=== PATIENT | female | born 1935 | race Caucasian/White ===

== ENCOUNTER → 2020-07-03 | Outpatient (CLI) | payer MEDICARE ==
[2020-07-03 15:46] LABS: HCT 44.4 % (34.0-46.0); HGB 14.3 gm/dL (11.4-16.0); MCH 31.2 pg (25.0-35.0); MCHC 32.3 g/dL (31.0-37.0); MCV 96.5 fL (80.0-100.0); Mean Platelet Volume 7.4; Platelet Count 333 k/uL (150-450); WBC 10.3 k/uL (3.8-10.6)
[2020-07-03 15:53] LABS: African American GFR (CKD) >90 (>60 ml/min/1.73 sqM); Blood Urea Nitrogen 26 mg/dL (7-17); Non-African American GFR(CKD) 79 (>60 ml/min/1.73 sqM); Potassium 3.4 mmol/L (3.5-5.1)
[2020-07-03 16:09] LABS: T4, Free (Free Thyroxine) 1.63 ng/dL (0.78-2.19)
== END | disposition home or self-care (01) ==
LOC: LABPAT 14:56
PROVIDERS: ATTEND Internal Medicine Interventional Cardiology
DX: Z01.818 Encounter for other preprocedural examination (principal); I48.91 Unspecified atrial fibrillation
CPT/HCPCS: 36415; 82306; 82565; 83735; 84132; 84439; 84443; 84520; 85027

== ENCOUNTER → 2020-10-30 | Outpatient (CLI) | payer MEDICARE ==
[2020-10-30 11:22] LABS: African American GFR (CKD) >90 (>60 ml/min/1.73 sqM); Anion Gap 2 mmol/L; Blood Urea Nitrogen 18 mg/dL (7-17); Carbon Dioxide 36 mmol/L (22-30); Chloride 100 mmol/L (98-107); Non-African American GFR(CKD) 85 (>60 ml/min/1.73 sqM); Potassium 3.5 mmol/L (3.5-5.1); Sodium 138 mmol/L (137-145)
[2020-10-30 18:16] LABS: HCT 38.4 % (34.0-46.0); HGB 12.2 gm/dL (11.4-16.0); Hypochromasia Slight; MCH 30.7 pg (25.0-35.0); MCHC 31.9 g/dL (31.0-37.0); MCV 96.2 fL (80.0-100.0); Mean Platelet Volume 8.3; Platelet Count 269 k/uL (150-450); RBC 3.99 m/uL (3.80-5.40); RDW 13.3 % (11.5-15.5); WBC 6.8 k/uL (3.8-10.6)
== END | disposition home or self-care (01) ==
LOC: LABWHC1 10:27
PROVIDERS: ATTEND Internal Medicine Interventional Cardiology
DX: Z01.818 Encounter for other preprocedural examination (principal); R07.9 Chest pain, unspecified
CPT/HCPCS: 36415; 80051; 82565; 84520; 85027

== ENCOUNTER → 2020-11-13 | Outpatient (CLI) | payer MEDICARE | END | disposition home or self-care (01) | LOC: LABWHC1 14:48 | PROVIDERS: ATTEND Family Medicine | DX: Z20.828 Contact with and (suspected) exposure to other viral communicable diseases (principal) | CPT/HCPCS: U0003; C9803 ==

== ENCOUNTER → 2020-12-31 | Outpatient (CLI) | payer MEDICARE ==
--- NOTE | 2020-12-31 11:10 | CT ---
EXAMINATION TYPE: CT chest wo con DATE OF EXAM: 12/31/2020 COMPARISON: None HISTORY: Pulmonary nodule CT DLP: 212.6 mGycm. Automated Exposure Control for Dose Reduction was Utilized. TECHNIQUE: CT scan of the thorax is performed without IV contrast. FINDINGS: LUNGS: The lungs are remarkable for interstitial changes, there is apical pleural thickening present, interlobular septal thickening is present, there are bandlike areas of increased attenuation, areas of pleural thickening. Wedge-shaped area of increased attenuation is present in the right upper lobe which extends peripherally measuring approximately 2 cm x 1.6 cm which is likely postinflammatory. No pleural or pericardial effusion. There is no pleural effusion or pneumothorax seen. The tracheobron chial tree is patent. MEDIASTINUM: Lack of IV contrast is noted to limit evaluation for mediastinal and especially hilar ad enopathy. Retrocaval pretracheal nodes are mildly enlarged, No cardiomegaly or pericardial effusion i s seen. Pulmonary arteries enlarged 3 cm. There are coronary artery calcifications present. OTHER: Ascending aorta is borderline aneurysmal at 4 cm, proximal descending aorta 2.8 cm. Diverticul ar changes associated with the colon. IMPRESSION: Pulmonary fibrosis suspected. There is a mediastinal adenopathy. Probable post inflammato ry changes as described.
== END | disposition home or self-care (01) ==
LOC: CPPFTMAIN 07:31
PROVIDERS: ATTEND Internal Medicine Pulmonary Disease
DX: J44.9 Chronic obstructive pulmonary disease, unspecified (principal); R94.2 Abnormal results of pulmonary function studies; R59.0 Localized enlarged lymph nodes
CPT/HCPCS: 71250; 94060; 94726; 94729

== ENCOUNTER 2021-02-19 16:23 | Observation (INO) | payer MEDICARE ==
[2021-02-19] MEDS ORDERED: ASPIRIN 81 MG PO STA (16:59)
[2021-02-19] MEDS ORDERED: NITROGLYCERIN OINT 1 INCH/GM PACKET TOPICAL STA (16:59)
[2021-02-19] MEDS ORDERED: SODIUM CHLORIDE 0.9% 500 ML 500 ML IV STA (16:59)
--- NOTE | 2021-02-19 17:05 | ED ---
General Adult HPI - General Chief complaint: Chest Pain Stated complaint: chest pain Time Seen by Provider: 02/19/21 16:25 Source: patient, EMS, RN notes reviewed, old records reviewed Mode of arrival: EMS Limitations: no limitations - History of Present Illness Initial comments: This is an 85-year-old female has past medical history significant for smoking in the past has COPD, patient has high blood pressure and high cholesterol. Patient comes in today because 1:30 in the morning she started having chest pain that radiated down her left arm and she became very short of breath. Patient states the pain continues now but is not quite as bad. Patient denies any diaphoretic episodes. Patient denies abdominal pain patient denies nausea vomiting or diarrhea. Patient denies any recent fever chills or cough. Patient denies headache patient denies lightheadedness. Patient denies any numbness weakness. Patient denies any extremity swelling or calf tenderness. - Related Data Home Medications Medication Instructions Recorded Confirmed Calcium Carbonate/Vitamin D3 1 tab PO DAILY 02/19/21 02/19/21 [Calcium 600 mg-Vit D3 5 mcg (200 unit)] Cyclobenzaprine [Flexeril] 10 mg PO HS 02/19/21 02/19/21 Flecainide Acetate 50 mg PO Q12HR 02/19/21 02/19/21 Ibuprofen [Motrin] 800 mg PO DAILY PRN 02/19/21 02/19/21 Levothyroxine Sodium [Synthroid] 200 mcg PO DAILY 02/19/21 02/19/21 Lisinopril-Hctz 20-25 mg 1 tab PO DAILY 02/19/21 02/19/21 [Zestoretic 20-25] Meclizine HCl 25 mg PO DAILY 02/19/21 02/19/21 Metoprolol Tartrate [Lopressor] 25 mg PO HS 02/19/21 02/19/21 Metoprolol Tartrate [Lopressor] 50 mg PO DAILY 02/19/21 02/19/21 Nitrofurantoin Monohyd/M-Cryst 100 mg PO MOWEFR 02/19/21 02/19/21 [Macrobid] Pravastatin Sodium [Pravachol] 40 mg PO DAILY 02/19/21 02/19/21 Rivaroxaban [Xarelto] 20 mg PO W/SUPPER 02/19/21 02/19/21 amLODIPine [Norvasc] 10 mg PO DAILY 02/19/21 02/19/21 Allergies Allergy/AdvReac Type Severity Reaction Status Date / Time No Known Allergies Allergy Verified 02/19/21 20:26 Review of Systems ROS Statement: Those systems with pertinent positive or pertinent negative responses have been documented in the HPI. ROS Other: All systems not noted in ROS Statement are negative. Past Medical History Past Medical History: Atrial Fibrillation, Cancer, COPD, Hypertension, Pneumonia History of Any Multi-Drug Resistant Organisms: None Reported Past Surgical History: Hysterectomy Additional Past Surgical History / Comment(s): Bunion surg Past Psychological History: No Psychological Hx Reported Smoking Status: Former smoker Past Alcohol Use History: Rare Past Drug Use History: None Reported General Exam Limitations: no limitations Course Vital Signs 02/19/21 02/19/21 02/19/21 16:23 17:25 18:37 Temperature 98.2 F Pulse Rate 72 68 Respiratory 20 18 20 Rate Blood Pressure 119/59 125/79 O2 Sat by Pulse 87 L 95 Oximetry 02/19/21 02/19/21 19:10 20:30 Temperature 98.0 F Pulse Rate 75 73 Respiratory 18 18 Rate Blood Pressure 87/57 127/72 O2 Sat by Pulse 96 95 Oximetry Medical Decision Making - Medical Decision Making EKG shows normal sinus rhythm at 69 bpm FL interval 202 QRS is 98 QT interval is 536 QTC is 574. Patient's EKG shows some T-wave inversions in leads V3 through V6. There is no old EKG to compare to Chest x-ray shows no acute abnormality. Looks like there is scarring in the bases no obvious CHF. Patient has no symptoms of pneumonia. I spoke with Dr. Lee he agreed to admit the patient admitted the patient wrote admitting orders - Lab Data Result diagrams: 02/19/21 17:21 02/19/21 17:21 Lab Results 02/19/21 02/19/21 02/19/21 Range/Units 17:21 17:21 17:21 WBC 9.3 (3.8-10.6) k/uL RBC 3.75 L (3.80-5.40) m/uL Hgb 9.8 L (11.4-16.0) gm/dL Hct 31.5 L (34.0-46.0) % MCV 83.9 (80.0-100.0) fL MCH 26.0 (25.0-35.0) pg MCHC 31.0 (31.0-37.0) g/dL RDW 15.2 (11.5-15.5) % Plt Count 317 (150-450) k/uL MPV 7.2 Neutrophils % 70 % Lymphocytes % 20 % Monocytes % 6 % Eosinophils % 1 % Basophils % 0 % Neutrophils # 6.5 (1.3-7.7) k/uL Lymphocytes # 1.9 (1.0-4.8) k/uL Monocytes # 0.5 (0-1.0) k/uL Eosinophils # 0.1 (0-0.7) k/uL Basophils # 0.0 (0-0.2) k/uL Hypochromasia Slight PT 10.9 (9.0-12.0) sec INR 1.0 (<1.2) APTT 26.4 (22.0-30.0) sec Sodium 133 L (137-145) mmol/L Potassium 3.4 L (3.5-5.1) mmol/L Chloride 95 L (98-107) mmol/L Carbon Dioxide 30 (22-30) mmol/L Anion Gap 8 mmol/L BUN 20 H (7-17) mg/dL Creatinine 0.57 (0.52-1.04) mg/dL Est GFR (CKD-EPI)AfAm >90 (>60 ml/min/1.73 sqM) Est GFR (CKD-EPI)NonAf 86 (>60 ml/min/1.73 sqM) Glucose 142 H (74-99) mg/dL Calcium 9.2 (8.4-10.2) mg/dL Magnesium 1.7 (1.6-2.3) mg/dL Total Bilirubin 0.4 (0.2-1.3) mg/dL AST 18 (14-36) U/L ALT 13 (4-34) U/L Alkaline Phosphatase 68 (38-126) U/L Troponin I (0.000-0.034) ng/mL Total Protein 6.4 (6.3-8.2) g/dL Albumin 3.6 (3.5-5.0) g/dL Coronavirus (PCR) (Not Detectd) 02/19/21 02/19/21 Range/Units 17:21 17:21 WBC (3.8-10.6) k/uL RBC (3.80-5.40) m/uL Hgb (11.4-16.0) gm/dL Hct (34.0-46.0) % MCV (80.0-100.0) fL MCH (25.0-35.0) pg MCHC (31.0-37.0) g/dL RDW (11.5-15.5) % Plt Count (150-450) k/uL MPV Neutrophils % % Lymphocytes % % Monocytes % % Eosinophils % % Basophils % % Neutrophils # (1.3-7.7) k/uL Lymphocytes # (1.0-4.8) k/uL Monocytes # (0-1.0) k/uL Eosinophils # (0-0.7) k/uL Basophils # (0-0.2) k/uL Hypochromasia PT (9.0-12.0) sec INR (<1.2) APTT (22.0-30.0) sec Sodium (137-145) mmol/L Potassium (3.5-5.1) mmol/L Chloride (98-107) mmol/L Carbon Dioxide (22-30) mmol/L Anion Gap mmol/L BUN (7-17) mg/dL Creatinine (0.52-1.04) mg/dL Est GFR (CKD-EPI)AfAm (>60 ml/min/1.73 sqM) Est GFR (CKD-EPI)NonAf (>60 ml/min/1.73 sqM) Glucose (74-99) mg/dL Calcium (8.4-10.2) mg/dL Magnesium (1.6-2.3) mg/dL Total Bilirubin (0.2-1.3) mg/dL AST (14-36) U/L ALT (4-34) U/L Alkaline Phosphatase (38-126) U/L Troponin I <0.012 (0.000-0.034) ng/mL Total Protein (6.3-8.2) g/dL Albumin (3.5-5.0) g/dL Coronavirus (PCR) Not Detected (Not Detectd) Disposition Clinical Impression: Unstable angina pectoris Disposition: ADMITTED IP TO THIS HOSP Referrals: Jon Santa MD [Primary Care Provider] - 1-2 days Time of Disposition: 20:34
[2021-02-19 17:25] LABS: Basophils % (A) 0 %; Eosinophils # (A) 0.1 k/uL (0-0.7); Eosinophils % (A) 1 %; HCT 31.5 % (34.0-46.0); HGB 9.8 gm/dL (11.4-16.0); Hypochromasia Slight; Lymphocytes # (A) 1.9 k/uL (1.0-4.8); Lymphocytes % (A) 20 %; MCV 83.9 fL (80.0-100.0); Mean Platelet Volume 7.2; Monocytes # (A) 0.5 k/uL (0-1.0); Monocytes % (A) 6 %; Neutrophils # (A) 6.5 k/uL (1.3-7.7); Neutrophils % (A) 70 %; Platelet Count 317 k/uL (150-450); RBC 3.75 m/uL (3.80-5.40); RDW 15.2 % (11.5-15.5); WBC 9.3 k/uL (3.8-10.6)
[2021-02-19 17:33] LABS: Partial Thromboplastin Time 26.4 sec (22.0-30.0); Prothrombin Time 10.9 sec (9.0-12.0)
[2021-02-19 17:34] LABS: ALT 13 U/L (4-34); AST 18 U/L (14-36); African American GFR (CKD) >90 (>60 ml/min/1.73 sqM); Albumin 3.6 g/dL (3.5-5.0); Alkaline Phosphatase 68 U/L (38-126); Anion Gap 8 mmol/L; Blood Urea Nitrogen 20 mg/dL (7-17); Calcium 9.2 mg/dL (8.4-10.2); Carbon Dioxide 30 mmol/L (22-30); Chloride 95 mmol/L (98-107); Glucose 142 mg/dL (74-99); Magnesium 1.7 mg/dL (1.6-2.3); Non-African American GFR(CKD) 86 (>60 ml/min/1.73 sqM); Potassium 3.4 mmol/L (3.5-5.1); Sodium 133 mmol/L (137-145); Total Bilirubin 0.4 mg/dL (0.2-1.3); Total Protein 6.4 g/dL (6.3-8.2)
--- NOTE | 2021-02-19 17:58 | XR ---
EXAMINATION TYPE: XR chest 2V DATE OF EXAM: 02/19/2021 COMPARISON: NONE HISTORY: Chest pain TECHNIQUE: 2 views FINDINGS: There is blunting of the costophrenic angles. There is coarse interstitial pulmonary infilt rates. There is atelectasis and infiltrate at the lung bases. Pulmonary vascularity is difficult to e valuate. There are chest leads. IMPRESSION: There is pneumonia and atelectasis at the lung bases with small pleural effusions. No obv ious heart failure. Interstitial fibrotic changes.
[2021-02-19] MEDS ORDERED: SODIUM CHLORIDE 0.9% 500 ML 500 ML IV ONE (19:14)
[2021-02-19] MEDS ORDERED: NITROGLYCERIN SL TABS 0.4 MG TAB SUBLINGUAL PRN (20:34)
[2021-02-19] MEDS: METOPROLOL TARTRATE 25 MG TAB PO SCH (21:57)
[2021-02-19] MEDS: NITROFURANTOIN MONOHYD/M-CRYST 100 MG CAP PO SCH (21:57)
[2021-02-19] MEDS: FLECAINIDE 50 MG TAB PO SCH (21:57)
[2021-02-19] MEDS: NITROGLYCERIN OINT 1 INCH/GM PACKET TOPICAL SCH (23:54)
[2021-02-20] MEDS: NITROGLYCERIN OINT 1 INCH/GM PACKET TOPICAL SCH ×2 (05:29→12:44)
[2021-02-20] MEDS ORDERED: LISINOPRIL-HCTZ 20-25 MG 1 EACH TAB PO SCH (09:00)
[2021-02-20] MEDS ORDERED: ASPIRIN 325 MG TAB PO SCH (09:00)
[2021-02-20] MEDS ORDERED: amLODIPine 10 MG TAB PO SCH (09:00)
[2021-02-20 09:54] LABS: Chol/HDL Ratio 3.55
[2021-02-20] MEDS: ASPIRIN 81 MG PO SCH (10:49)
[2021-02-20] MEDS: PRAVASTATIN SODIUM 40 MG TAB PO SCH (10:49)
[2021-02-20] MEDS: METOPROLOL TARTRATE 50 MG TAB PO SCH (10:49)
[2021-02-20] MEDS: FLECAINIDE 50 MG TAB PO SCH ×2 (10:50→20:27)
[2021-02-20] MEDS: LEVOTHYROXINE 100 MCG TAB PO SCH (10:50)
--- NOTE | 2021-02-20 11:00 | ECHOF ---
Referral Reason:chest pain MEASUREMENTS -------- HEIGHT: 154.9 cm WEIGHT: 65.8 kg BP: 101/69 RVIDd: 3.2 cm (< 3.3) IVSd: 1.1 cm (0.6 - 1.1) LVIDd: 5.7 cm (3.9 - 5.3) LVPWd: 1.2 cm (0.6 - 1.1) IVSs: 1.7 cm LVIDs: 3.6 cm LVPWs: 1.6 cm LA Diam: 4.3 cm (2.7 - 3.8) LAESV Index (A-L): 35.86 ml/m Ao Diam: 3.0 cm (2.0 - 3.7) AV Cusp: 1.9 cm (1.5 - 2.6) MV EXCURSION: 11.892 mm (> 18.000) MV EF SLOPE: 79 mm/s (70 - 150) EPSS: 0.7 cm RAP: 5.00 mmHg RVSP: 46.46 mmHg FINDINGS -------- Atrial fibrillation. This was a technically good study. The left ventricular size is normal. There is borderline concentric left ventricular hypertrophy. Overall left ventricular systolic function is normal with, an EF between 55 - 60 %. The right ventricle is normal in size. LA is moderately dilated 34-39 ml/m2 The right atrium is normal in size. Interatrial and interventricular septum intact. The aortic valve is trileaflet, and appears structurally normal. No aortic stenosis or regurgitation. The mitral valve leaflets are mildly thickened. Mild mitral annular calcification present. Mild m itral regurgitation is present. Moderate tricuspid regurgitation present. There is moderate pulmonary hypertension. The right michi tricular systolic pressure, as measured by Doppler, is 46.46mmHg. Trace/mild (physiologic) pulmonic regurgitation. The aortic root size is normal. Normal inferior vena cava with normal inspiratory collapse consistent with estimated right atrial pre ssure of 5 mmHg. The inferior vena cava is mildly dilated. There is no pericardial effusion. CONCLUSIONS -------- 1. The left ventricular size is normal. 2. There is borderline concentric left ventricular hypertrophy. 3. Overall left ventricular systolic function is normal with, an EF between 55 - 60 %. 4. LA is moderately dilated 34-39 ml/m2 5. The mitral valve leaflets are mildly thickened. 6. Mild mitral annular calcification present. 7. Mild mitral regurgitation is present. 8. Moderate tricuspid regurgitation present. 9. There is moderate pulmonary hypertension. 10. The right ventricular systolic pressure, as measured by Doppler, is 46.46mmHg. 11. Trace/mild (physiologic) pulmonic regurgitation. 12. The inferior vena cava is mildly dilated. 13. There is no pericardial effusion. GUARD SERGEANT: TERRELL Hernandez
--- NOTE | 2021-02-20 12:55 | P.HPIM ---
History of Present Illness H&P Date: 02/20/21 Chief Complaint: CP HISTORY OF PRESENT ILLNESS This is an 85-year-old female patient of Dr. Jon Santa with past medical history of COPD, hypertension, hyperlipidemia, paroxysmal atrial fibrillation, colon cancer, chronic hypoxic respiratory failure on home O2, remote history of tobacco use. Patient was hospitalized at [facility] in November of this year for COVID-19 at that time was established with the vault manager there and also establish with Dr. Brizuela pulmonology with repeat appointment on March 11. Patient complains of chest pain that was all over chest and up into her neck and down her left arm. It started 132 nights ago and stayed until she arrived in the hospital. She states she has had a cough and blood in her sputum but has had 2 recent nosebleeds. She denies having any fever or chills. No choking with eating. She denies any diarrhea. She denies any sick contacts, no orthopnea. She states she has been taking all her medications as directed. Patient presented to [facility] emergency center for evaluation. Temperature max 100.0, heart rate 72, blood pressure 119/59, pulse ox 87%. EKG was a sinus rhythm with T-wave inversions in V3 through V6. Chest x-ray revealed pneumonia and atelectasis at the lung bases with small pleural effusions. No obvious heart failure. WBC 9.3, hemoglobin 9.8, platelet count 317. Sodium 134, potassium 3.4, chloride 95, CO2 20 creatinine 0.57. Blood sugar 142. Liver function tests were normal. Coronavirus PCR not detected. Troponin negative on 3 draws. Patient received 1 L of IV fluids, Nitro-Bid and placed in the observation unit and cardiology consult requested. Patient has been started on antibiotics. She has been seen by cardiology and heart catheterization was offered to her. Family in the meantime have reached out to her manager people at [facility] and in the process of making arrangements for heart catheterization at [place]. Awaiting further details and bed availability. Daughter is on her way to the patient's room and plan will be determined. REVIEW OF SYSTEMS Constitutional: No fever, no chills, no night sweats. No weight change. No weakness, fatigue or lethargy. No daytime sleepiness. EENT: No headache. No blurred vision or double vision, no loss of vision. No dizziness. No nasal drainage or congestion. No epistaxis. No sore throat. Lungs: No shortness of breath, reports cough, no sputum production. No wheezing. Reports hemoptysis. Cardiovascular: Reports chest pain, no lower extremity edema. No palpitations. No paroxysmal nocturnal dyspnea. No orthopnea. No lightheadedness or dizziness. No syncopal episodes. Abdominal: No abdominal pain. No nausea, vomiting. No diarrhea. No constipation. No bloody or tarry stools.. No loss of appetite. Genitourinary: No dysuria, increased frequency, urgency. No urinary retention. Musculoskeletal: No myalgias. No muscle weakness, no gait dysfunction, no frequent falls. No back pain. No neck pain. Integumentary: No wounds, no lesions. No rash or pruritus. No unusual bruising. No change in hair or nails. Neurologic: No aphasia. No facial droop. No change in mentation. No head injury. No headache. No paralysis. No paresthesia. Psychiatric: No depression. No anxiety. Endocrine: No abnormal blood sugars. SOCIAL HISTORY Patient was a smoker one pack per day for 40 years and quit 30 years ago. She denies any alcohol use or illicit drug use. She does not utilize cane or walker. She has had oxygen at home since [employer] and utilizes this at all times except for taking a showers. Patient lives at home with her . FAMILY HISTORY Mother is with history of pacemaker. Father is with history of diabetes and TIAs. Patient is a total of 6 brothers and 3 had coronary artery disease. One with bladder cancer and one with bladder cancer and metastatic disease. Patient does not have any sisters. Patient has 2 sons and one has diabetes. Patient also has 2 daughters. PHYSICAL EXAMINATION Gen: This chintan an 85-year-old female. Patient is resting in bed and appears to be comfortable and in no acute distress. HEENT: Head is atraumatic, normocephalic. Pupils equal, round. Sclerae is anicteric. NECK: Supple. No JVD. No lymphadenopathy. No thyromegaly. LUNGS: Clear to auscultation. No wheezes or rhonchi. No intercostal retractions. HEART: Regular rate and rhythm. No murmur. ABDOMEN: Soft. Bowel sounds are present. No masses. No tenderness. EXTREMITIES: No pedal edema. No calf tenderness. NEUROLOGICAL: Patient is awake, alert and oriented x3. Cranial nerves 2 through 12 are grossly intact. ASSESSMENT AND PLAN 1. Chest pain with negative troponins but concerning for coronary artery disease. Acute coronary syndrome ruled out. Cardiology consult appreciated. Patient has been given the option of heart catheterization here tomorrow. Family is also contacted her manager people at [place]. 2. Bilateral pneumonia and atelectasis. Consult with Dr. Thompson. Continue ceftriaxone. Start incentive spirometry. 3. COPD, Stable without exacerbation. 4. Hypertension. Hold amlodipine 10 mg daily and Zestoretic for hypertension. Continue Lopressor 50 mg daily and 25 mg at bedtime. 5. Hyperlipidemia. Continue pravastatin 40 mg daily. 6. Paroxysmal atrial fibrillation. Continue Xarelto 20 mg with supper, Lopressor 50 mg daily and 25 mg at bedtime. 7. Remote history of tobacco use. 8. COVID-19 testing negative. Patient has been hospitalized during a pandemic. Patient will be admitted to the hospital for a minimum of 2 night stay. DISCHARGE PLAN Home Impression and plan of care have been directed as dictated by the signing physician. Wendie Guzmán nurse practitioner acting as scribe for signing physician. Past Medical History Past Medical History: Atrial Fibrillation, Cancer, COPD, Hypertension, Pneumonia History of Any Multi-Drug Resistant Organisms: None Reported Past Surgical History: Hysterectomy Additional Past Surgical History / Comment(s): Bunion surg Past Anesthesia/Blood Transfusion Reactions: No Reported Reaction Past Psychological History: No Psychological Hx Reported Smoking Status: Former smoker Past Alcohol Use History: Rare Past Drug Use History: None Reported - Past Family History Mother Family Medical History: Myocardial Infarction ([place]) Father Family Medical History: Diabetes Mellitus Medications and Allergies Home Medications Medication Instructions Recorded Confirmed Type Calcium Carbonate/Vitamin D3 1 tab PO DAILY 02/19/21 02/19/21 History [Calcium 600 mg-Vit D3 5 mcg (200 unit)] Cyclobenzaprine [Flexeril] 10 mg PO HS 02/19/21 02/19/21 History Flecainide Acetate 50 mg PO Q12HR 02/19/21 02/19/21 History Ibuprofen [Motrin] 800 mg PO DAILY PRN 02/19/21 02/19/21 History Levothyroxine Sodium [Synthroid] 200 mcg PO DAILY 02/19/21 02/19/21 History Lisinopril-Hctz 20-25 mg 1 tab PO DAILY 02/19/21 02/19/21 History [Zestoretic 20-25] Meclizine HCl 25 mg PO DAILY 02/19/21 02/19/21 History Metoprolol Tartrate [Lopressor] 25 mg PO HS 02/19/21 02/19/21 History Metoprolol Tartrate [Lopressor] 50 mg PO DAILY 02/19/21 02/19/21 History Nitrofurantoin Monohyd/M-Cryst 100 mg PO MOWEFR 02/19/21 02/19/21 History [Macrobid] Pravastatin Sodium [Pravachol] 40 mg PO DAILY 02/19/21 02/19/21 History Rivaroxaban [Xarelto] 20 mg PO W/SUPPER 02/19/21 02/19/21 History amLODIPine [Norvasc] 10 mg PO DAILY 02/19/21 02/19/21 History Allergies Allergy/AdvReac Type Severity Reaction Status Date / Time No Known Allergies Allergy Verified 02/19/21 20:26 Physical Exam Vitals: Vital Signs Temp Pulse Pulse Resp BP BP Pulse Ox 02/20/21 03:28 99.0 F 79 22 99/63 93 L 02/20/21 02:00 87 20 02/19/21 21:37 100.0 F H 87 22 149/76 85 L 02/19/21 20:30 98.0 F 73 18 127/72 95 02/19/21 19:10 75 18 87/57 96 02/19/21 18:37 20 02/19/21 17:25 68 18 125/79 95 02/19/21 16:23 98.2 F 72 20 119/59 87 L Intake and Output 02/19/21 02/20/21 02/20/21 22:59 06:59 14:59 Other: Voiding Method Toilet # Voids 1 22 Weight 65.771 kg Results CBC & Chem 7: 02/19/21 17:21 02/19/21 17:21 Labs: Abnormal Lab Results - Last 24 Hours (Table) 02/19/21 02/19/21 Range/Units 17:21 17:21 RBC 3.75 L (3.80-5.40) m/uL Hgb 9.8 L (11.4-16.0) gm/dL Hct 31.5 L (34.0-46.0) % Sodium 133 L (137-145) mmol/L Potassium 3.4 L (3.5-5.1) mmol/L Chloride 95 L (98-107) mmol/L BUN 20 H (7-17) mg/dL Glucose 142 H (74-99) mg/dL Thrombosis Risk Factor Assmnt - Choose All That Apply Each Factor Represents 1 point: Abnormal pulmonary function (COPD) Each Risk Factor Represents 3 Points: Age 75 years or older Other congenital or acquired thrombophilia - If yes, enter type in comment: No Thrombosis Risk Factor Assessment Total Risk Factor Score: 4 Thrombosis Risk Factor Assessment Level: Moderate Risk
--- NOTE | 2021-02-20 13:02 | P.CRDCN ---
History of Present Illness Consult date: 02/20/21 History of present illness: HISTORY OF PRESENT ILLNESS: This is a 85-year-old female with a past medical history significant for hypertension, hyperlipidemia, paroxysmal atrial fibrillation, COPD, and former nicotine dependence. Patient used to follow in the office with Dr. Uribe, but now follows with a board layer out of [place]. We have been asked to see the patient in consultation for chest pain. Patient examined at the bedside. Patient states she woke up two nights ago she woke up out of her sleep with chest pain. She states the pain was a heavy pressure on her chest. She states this went up into her neck and upper back and down her left arm. He states she waited a well to come to the hospital but eventually around lunchtime she called EMS. She states that she had 2 sublingual nitro when EMS arrived which relieved her pain. At the time of examination this morning, the patient denies chest pain or pressure. Patient had a Lexiscan stress test performed in June 2020 which did not reveal stress-induced ischemia. Due to patient having recurrent chest pain she was scheduled to undergo cardiac catheterization in November. However, the patient was hospitalized around that time [place] with [facility]. Since then, she has e stablished with a new board layer at [place]. EKG reveals sinus mag is him with T-wave inversions in V3 through V6 which was present on previous EKG from the office Chest xray there is pneumonia and atelectasis at the lung bases with small pleural effusions Laboratory data: WBC 9.3. Hemoglobin 9.8. Platelet count 317. Sodium 133. Potassium 3.4. BUN 20. Creatinine 0.57. Magnesium 1.7. Troponin negative 3. Current home cardiac medications include Xarelto 20 mg daily, pravastatin 40 mg daily, metoprolol tartrate 50 mg in the morning and 25 mg at night, lisinopril- hydrochlorothiazide 20-25mg daily, amlodipine 10 mg daily Echocardiogram obtained revealed ejection fraction 55-60%, mild mitral regurgitation, moderate tricuspid regurgitation, and moderate pulmonary hypertension REVIEW OF SYSTEMS: At the time of my exam: CONSTITUTIONAL: Denies fever or chills. HEENT: Denies blurred vision, vision changes, or eye pain. Denies hemoptysis CARDIOVASCULAR: Denies chest pain. Denies orthopnea. Denies PND. Denies palpitations RESPIRATORY: Denies shortness of breath. GASTROINTESTINAL: Denies abdominal pain. Denies nausea or vomiting. HEMATOLOGIC: Denies bleeding disorders. GENITOURINARY: Denies any blood in urine. SKIN: Denies pruitis. Denies rash. PHYSICAL EXAM: VITAL SIGNS: Reviewed. GENERAL: Well-developed in no acute distress. HEENT: Head is normocephalic. Pupils are equal, round. Sclerae anicteric. Mucous membranes of the mouth are moist. Neck supple. No JVD or thyromegaly LUNGS: Respirations even and unlabored. Lungs essentially clear to auscultation bilaterally. HEART: Regular rate and rhythm. S1 and S2 heard. ABDOMEN: Soft. Nondistended. Nontender. EXTREMITIES: Normal range of motion. No clubbing or cyanosis. Peripheral pulses intact. No lower extremity edema NEUROLOGIC: Awake and alert. Oriented x 3. ASSESSMENT: Chest pain, troponin negative x 3 Pneumonia Paroxysmal atrial fibrillation, on anticoagulation with Xarelto Hypertension Hyperlipidemia COPD Former nicotine dependence PLAN: An acute coronary event has been ruled out Resume home cardiac medications Decrease aspirin to 81mg daily. DC nitro paste. Recommend cardiac catheterization. Dr. Modi spoke with patient and offered for her to have cath performed here by Dr. Uribe or at [place]. Patient has opted to undergo further workup with her board layer at [place] Further recommendations pending patient course Nurse practitioner note has been reviewed by physician. Signing provider agrees with the documented findings, assessment, and plan of care. Past Medical History Past Medical History: Atrial Fibrillation, Cancer, COPD, Hypertension, Pneumonia History of Any Multi-Drug Resistant Organisms: None Reported Past Surgical History: Hysterectomy Additional Past Surgical History / Comment(s): Bunion surg Past Anesthesia/Blood Transfusion Reactions: No Reported Reaction Past Psychological History: No Psychological Hx Reported Smoking Status: Former smoker Past Alcohol Use History: Rare Past Drug Use History: None Reported - Past Family History Mother Family Medical History: Myocardial Infarction ([place]) Father Family Medical History: Diabetes Mellitus Medications and Allergies Home Medications Medication Instructions Recorded Confirmed Type Calcium Carbonate/Vitamin D3 1 tab PO DAILY 02/19/21 02/19/21 History [Calcium 600 mg-Vit D3 5 mcg (200 unit)] Cyclobenzaprine [Flexeril] 10 mg PO HS 02/19/21 02/19/21 History Flecainide Acetate 50 mg PO Q12HR 02/19/21 02/19/21 History Ibuprofen [Motrin] 800 mg PO DAILY PRN 02/19/21 02/19/21 History Levothyroxine Sodium [Synthroid] 200 mcg PO DAILY 02/19/21 02/19/21 History Lisinopril-Hctz 20-25 mg 1 tab PO DAILY 02/19/21 02/19/21 History [Zestoretic 20-25] Meclizine HCl 25 mg PO DAILY 02/19/21 02/19/21 History Metoprolol Tartrate [Lopressor] 25 mg PO HS 02/19/21 02/19/21 History Metoprolol Tartrate [Lopressor] 50 mg PO DAILY 02/19/21 02/19/21 History Nitrofurantoin Monohyd/M-Cryst 100 mg PO MOWEFR 02/19/21 02/19/21 History [Macrobid] Pravastatin Sodium [Pravachol] 40 mg PO DAILY 02/19/21 02/19/21 History Rivaroxaban [Xarelto] 20 mg PO W/SUPPER 02/19/21 02/19/21 History amLODIPine [Norvasc] 10 mg PO DAILY 02/19/21 02/19/21 History Allergies Allergy/AdvReac Type Severity Reaction Status Date / Time No Known Allergies Allergy Verified 02/19/21 20:26 Physical Exam Vitals: Vital Signs Temp Pulse Pulse Resp BP BP Pulse Ox 02/20/21 07:32 97.9 F 58 L 101/69 91 L 02/20/21 03:28 99.0 F 79 22 99/63 93 L 02/20/21 02:00 87 20 02/19/21 21:37 100.0 F H 87 22 149/76 85 L 02/19/21 20:30 98.0 F 73 18 127/72 95 02/19/21 19:10 75 18 87/57 96 02/19/21 18:37 20 02/19/21 17:25 68 18 125/79 95 02/19/21 16:23 98.2 F 72 20 119/59 87 L Intake and Output 02/19/21 02/20/21 02/20/21 22:59 06:59 14:59 Other: Voiding Method Toilet Toilet # Voids 1 22 Weight 65.771 kg Results 02/19/21 17:21 02/19/21 17:21 Cardiac Enzymes 02/19/21 02/19/21 02/19/21 Range/Units 17:21 17:21 21:13 AST 18 (14-36) U/L Troponin I <0.012 <0.012 (0.000-0.034) ng/mL 02/20/21 Range/Units 01:00 AST (14-36) U/L Troponin I <0.012 (0.000-0.034) ng/mL Coagulation 02/19/21 Range/Units 17:21 PT 10.9 (9.0-12.0) sec APTT 26.4 (22.0-30.0) sec Lipids 02/19/21 Range/Units 17:21 Triglycerides 170.0 H (0.0-149.0) mg/dL Cholesterol 167 (0-200) mg/dL HDL Cholesterol 47.0 (40.0-60.0) mg/dL Cholesterol/HDL Ratio 3.55 CBC 02/19/21 Range/Units 17:21 WBC 9.3 (3.8-10.6) k/uL RBC 3.75 L (3.80-5.40) m/uL Hgb 9.8 L (11.4-16.0) gm/dL Hct 31.5 L (34.0-46.0) % Plt Count 317 (150-450) k/uL Comprehensive Metabolic Panel 02/19/21 Range/Units 17:21 Sodium 133 L (137-145) mmol/L Potassium 3.4 L (3.5-5.1) mmol/L Chloride 95 L (98-107) mmol/L Carbon Dioxide 30 (22-30) mmol/L BUN 20 H (7-17) mg/dL Creatinine 0.57 (0.52-1.04) mg/dL Glucose 142 H (74-99) mg/dL Calcium 9.2 (8.4-10.2) mg/dL AST 18 (14-36) U/L ALT 13 (4-34) U/L Alkaline Phosphatase 68 (38-126) U/L Total Protein 6.4 (6.3-8.2) g/dL Albumin 3.6 (3.5-5.0) g/dL Current Medications Generic Name Dose Route Start Last Admin Trade Name Freq PRN Reason Stop Dose Admin Aspirin 81 mg 02/20/21 09:00 02/20/21 10:49 Aspirin 81 Mg PO 81 mg DAILY [facility] Administration Cyclobenzaprine HCl 10 mg 02/20/21 21:00 Cyclobenzaprine 10 Mg Tab PO HS [facility] Flecainide Acetate 50 mg 02/19/21 21:00 02/20/21 10:50 Flecainide 50 Mg Tab PO 50 mg Q12HR [facility] Administration Ceftriaxone Sodium 1 gm/ 50 mls @ 100 mls/hr 02/20/21 09:30 02/20/21 10:50 Sodium Chloride IVPB 100 mls/hr Q24HR [facility] Administration Levothyroxine Sodium 200 mcg 02/20/21 09:00 02/20/21 10:50 Levothyroxine 100 Mcg Tab PO Not Given DAILY@0630 [facility] Metoprolol Tartrate 50 mg 02/20/21 09:00 02/20/21 10:49 Metoprolol Tartrate 50 Mg Tab PO 50 mg DAILY [facility] Administration Metoprolol Tartrate 25 mg 02/19/21 21:00 02/19/21 21:57 Metoprolol Tartrate 25 Mg Tab PO 25 mg HS [facility] Administration Nitrofurantoin Macrocrystals 100 mg 02/19/21 21:00 02/19/21 21:57 Nitrofurantoin Monohyd/M-Cryst 100 Mg Cap PO 100 mg [id number]@0900 [facility] Administration Nitroglycerin 0.4 mg 02/19/21 20:34 Nitroglycerin Sl Tabs 0.4 Mg Tab SUBLINGUAL Q5M PRN Chest Pain Nitroglycerin 1 inch 02/20/21 00:00 02/20/21 12:44 Nitroglycerin Oint 1 Inch/Gm Packet TOPICAL Not Given Q6HR [facility] Pravastatin Sodium 40 mg 02/20/21 09:00 02/20/21 10:49 Pravastatin Sodium 40 Mg Tab PO 40 mg DAILY [facility] Administration Rivaroxaban 20 mg 02/20/21 17:30 Rivaroxaban 20 Mg Tab PO W/SUPPER [facility] Intake and Output 02/19/21 02/20/21 02/20/21 22:59 06:59 14:59 Other: Voiding Method Toilet Toilet # Voids 1 22 Weight 65.771 kg 02/19/21 17:21 02/19/21 17:21
[2021-02-20] MEDS ORDERED: ALPRAZolam 0.25 MG TAB PO PRN (13:59)
[2021-02-20] MEDS ORDERED: ALPRAZolam 0.5 MG TAB PO PRN (13:59)
[2021-02-20] MEDS ORDERED: NITROGLYCERIN SL TABS 0.4 MG TAB SUBLINGUAL PRN (13:59)
--- NOTE | 2021-02-20 15:10 | P.CNPUL ---
History of Present Illness Consult date: 02/20/21 Reason for consult: dyspnea, cough, COPD, abnormal CXR/CT Chief complaint: Shortness of breath and chest pain History of present illness: This is a 85-year-old female who has COPD as a baseline condition, patient also has a history of coronary 19 pneumonia with respiratory failure diagnosed in November of this year, patient has been having shortness of breath and residual fibrosis in the lung post pneumonia has been on 2 L oxygen unable to wean off of it, she came into the hospital with chest pain of one day duration, cardiology has recommended to do cardiac catheter angiogram, echocardiogram revealed ejection fraction of 55-60%, patient has a mild to moderate pulmonary hypertension with RVSP of 46 on echocardiogram, chest x-ray performed at the time admission revealed coarse bilateral interstitial infiltrate likely suggestive of pulmonary fibrosis, covid 19 testing is negative Past Medical History Past Medical History: Atrial Fibrillation, Cancer, COPD, Hypertension, Pneumonia History of Any Multi-Drug Resistant Organisms: None Reported Past Surgical History: Hysterectomy Additional Past Surgical History / Comment(s): Bunion surg Past Anesthesia/Blood Transfusion Reactions: No Reported Reaction Past Psychological History: No Psychological Hx Reported Smoking Status: Former smoker Past Alcohol Use History: Rare Past Drug Use History: None Reported - Past Family History Mother Family Medical History: Myocardial Infarction ([place]) Father Family Medical History: Diabetes Mellitus Medications and Allergies Home Medications Medication Instructions Recorded Confirmed Type Calcium Carbonate/Vitamin D3 1 tab PO DAILY 02/19/21 02/19/21 History [Calcium 600 mg-Vit D3 5 mcg (200 unit)] Cyclobenzaprine [Flexeril] 10 mg PO HS 02/19/21 02/19/21 History Flecainide Acetate 50 mg PO Q12HR 02/19/21 02/19/21 History Ibuprofen [Motrin] 800 mg PO DAILY PRN 02/19/21 02/19/21 History Levothyroxine Sodium [Synthroid] 200 mcg PO DAILY 02/19/21 02/19/21 History Lisinopril-Hctz 20-25 mg 1 tab PO DAILY 02/19/21 02/19/21 History [Zestoretic 20-25] Meclizine HCl 25 mg PO DAILY 02/19/21 02/19/21 History Metoprolol Tartrate [Lopressor] 25 mg PO HS 02/19/21 02/19/21 History Metoprolol Tartrate [Lopressor] 50 mg PO DAILY 02/19/21 02/19/21 History Nitrofurantoin Monohyd/M-Cryst 100 mg PO MOWEFR 02/19/21 02/19/21 History [Macrobid] Pravastatin Sodium [Pravachol] 40 mg PO DAILY 02/19/21 02/19/21 History Rivaroxaban [Xarelto] 20 mg PO W/SUPPER 02/19/21 02/19/21 History amLODIPine [Norvasc] 10 mg PO DAILY 02/19/21 02/19/21 History Allergies Allergy/AdvReac Type Severity Reaction Status Date / Time No Known Allergies Allergy Verified 02/19/21 20:26 Physical Exam Vitals: Vital Signs Temp Pulse Pulse Resp BP BP Pulse Ox 02/20/21 07:32 97.9 F 58 L 101/69 91 L 02/20/21 03:28 99.0 F 79 22 99/63 93 L 02/20/21 02:00 87 20 02/19/21 21:37 100.0 F H 87 22 149/76 85 L 02/19/21 20:30 98.0 F 73 18 127/72 95 02/19/21 19:10 75 18 87/57 96 02/19/21 18:37 20 02/19/21 17:25 68 18 125/79 95 02/19/21 16:23 98.2 F 72 20 119/59 87 L Intake and Output 02/20/21 02/20/21 02/20/21 06:59 14:59 22:59 Other: Voiding Method Toilet Toilet # Voids 22 - Constitutional General appearance: cooperative, disheveled - EENT Eyes: EOMI, PERRLA Ears: bilateral: normal - Neck Carotids: bilateral: upstroke normal Thyroid: bilateral: normal size - Respiratory Respiratory: bilateral: rales (Bilateral dry areas well-controlled type likely indicated above pulmonary fibrosis) - Cardiovascular Rhythm: regular Heart sounds: normal: S1, S2 - Gastrointestinal General gastrointestinal: normal bowel sounds - Neurologic Neurologic: CNII-XII intact - Musculoskeletal Musculoskeletal: gait normal, generalized weakness, strength equal bilaterally - Psychiatric Psychiatric: A&O x's 3, appropriate affect, intact judgment & insight Results - Laboratory Findings CBC and BMP: 02/19/21 17:21 02/19/21 17:21 PT/INR, D-dimer PT 10.9 sec (9.0-12.0) 02/19/21 17:21 INR 1.0 (<1.2) 02/19/21 17:21 Abnormal lab findings: Abnormal Labs 02/19/21 02/19/21 02/19/21 17:21 17:21 17:21 RBC 3.75 L Hgb 9.8 L Hct 31.5 L Sodium 133 L Potassium 3.4 L Chloride 95 L BUN 20 H Glucose 142 H Triglycerides 170.0 H - Diagnostic Findings Chest x-ray: report reviewed, image reviewed (And he has noted above) Assessment and Plan Assessment: 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
[2021-02-20] MEDS ORDERED: RIVAROXABAN 20 MG TAB PO SCH (17:30)
[2021-02-20] MEDS: METOPROLOL TARTRATE 25 MG TAB PO SCH (20:27)
[2021-02-20] MEDS ORDERED: CYCLOBENZAPRINE 10 MG TAB PO SCH (21:00)
[2021-02-20] MEDS ORDERED: SODIUM CHLORIDE 0.9% 1,000 ML in EMPTY BAG 1 BAG IV ONE (23:00)
[2021-02-21] MEDS: LEVOTHYROXINE 100 MCG TAB PO SCH (06:32)
[2021-02-21] MEDS ORDERED: ASPIRIN 325 MG TAB PO ONE (07:00)
[2021-02-21] MEDS ORDERED: HEPARIN SODIUM,PORCINE 10,000 UNIT in SODIUM CHLORIDE 0.9% 1,000 ML IRRIGATION PRN (07:00)
[2021-02-21] MEDS ORDERED: ATORVASTATIN 80 MG TAB PO ONE (07:00)
[2021-02-21] MEDS ORDERED: HEPARIN SODIUM,PORCINE 2,500 UNIT in SODIUM CHLORIDE 0.9% 250 ML IRRIGATION PRN (07:00)
[2021-02-21] MEDS ORDERED: MIDAZOLAM 2 MG/2 ML VIAL IV ONE (07:40)
[2021-02-21] MEDS ORDERED: IV FLUID CONTINUATION 900 ML IV ONE (07:42)
[2021-02-21] MEDS ORDERED: LIDOCAINE 1% INJ 10MG/ML (20 ML MDV) SQ ONE (07:42)
[2021-02-21] MEDS: VERAPAMIL SYRINGE (5 MG/10 ML) INTRAARTER ONE ×2 (07:45→07:59)
[2021-02-21] MEDS ORDERED: HEPARIN SODIUM 1,000 UN/ML (10ML VL) IV ONE (07:48)
[2021-02-21] MEDS ORDERED: IOPAMIDOL-250 100ML BTL INTRAARTER ONE (07:58)
[2021-02-21] MEDS ORDERED: RX INFO: IV CONTRAST WAS GIVEN 1 EACH MISC MISCELLANE PRN (08:19)
[2021-02-21] MEDS ORDERED: SODIUM CHLORIDE 0.9% 1,000 ML IV SCH (08:30)
[2021-02-21] MEDS: FLECAINIDE 50 MG TAB PO SCH (08:36)
[2021-02-21] MEDS: METOPROLOL TARTRATE 50 MG TAB PO SCH (08:36)
[2021-02-21] MEDS: ASPIRIN 81 MG PO SCH (08:36)
[2021-02-21] MEDS: PRAVASTATIN SODIUM 40 MG TAB PO SCH (08:37)
[2021-02-21] MEDS: NITROFURANTOIN MONOHYD/M-CRYST 100 MG CAP PO SCH (08:37)
[2021-02-21] MEDS ORDERED: predniSONE 20 MG TAB PO SCH (09:00)
[2021-02-21 10:01] LABS: African American GFR (CKD) 97.7 (60.0-200.0); Calcium 8.3 mg/dL (8.7-10.3); Non-African American GFR(CKD) 84.3 (60.0-200.0); Potassium 3.2 mmol/L (3.5-5.5)
--- NOTE | 2021-02-21 10:51 | CC ---
CARDIAC CATHETERIZATION REPORT DATE OF SERVICE: 02/21/2021. PROCEDURE PERFORMED: Left heart catheterization and coronary angiography. PERFORMED BY: Dr. Jude Uribe. ANESTHESIA: Moderate conscious sedation time was 20 minutes. The patient was administered Versed. Oxygen saturation, hemodynamics and EKG were monitored closely. CLINICAL INFORMATION: Mrs. Mery Mendieat is an 85-year-old lady with a history of hypertension, hyperlipidemia, and persistent chest pain in spite of a negative stress test. I had planned on doing a cardiac cath in early November, but this lady ended up with Covid pneumonia and was hospitalized at [facility] and started seeing a depot agent and a steerer there. However, she presented to the hospital with chest pain. When I saw her in November, she was in sinus rhythm with history of electrical cardioversion for persistent atrial fibrillation in June of 2020, but was maintaining sinus rhythm and was on Xarelto 20 mg daily. She has developed atrial fib along the road and now she is in atrial fibrillation. Today, came into the hospital with persistent chest pain, negative troponins. After due discussion, she was scheduled to be transferred to [place] but changed her mind and wished to have cardiac cath here and therefore I came in to perform the procedure. Risks, benefits, options were discussed previously. Again I reinforced the same today. The patient understood all details and wished to proceed with the procedure. PROCEDURE NOTE: Under local anesthesia and strict aseptic precautions, a 6-[place] introducer was placed in the right radial artery. Using a 3.5 left and a 4.0 right [place] catheters, I performed coronary angiography and the same right catheter was used to check LV pressures. LV gram was not performed. The sheath was taken out and TR band applied as per protocol and saturation of the fingers of the right hand was about 95%. The patient tolerated procedure well without complications. Moderate conscious sedation time was 20 minutes. She received Versed. CARDIAC CATHETERIZATION FINDINGS: The left ventricular end-diastolic pressure was 15 mmHg without any gradient across the aortic valve. CORONARY ANGIOGRAPHY FINDINGS: RIGHT CORONARY ARTERY: Large dominant vessel, has minor irregularities, no significant disease. Distally bifurcates into PDA and PLV, both of which have minor irregularities but no significant disease. LEFT MAIN CORONARY ARTERY: This is a long tortuous vessel, free of significant disease. Bifurcates into LAD and circumflex. LEFT ANTERIOR DESCENDING CORONARY ARTERY: Good caliber vessel extends along the anterior wall, extremely tortuous in the distal one third, curves over the apex to supply the inferoapical portion of left ventricle. There is a good-sized diagonal branch and several small septal branches that come up which are free of significant disease. LEFT POSTERIOR CIRCUMFLEX CORONARY ARTERY: Technically, a nondominant vessel gives off a single obtuse marginal that has about a 30% to 35% narrowing and then runs in the AV groove which also has about a 30% to 35% narrowing. No significant disease in the circumflex system. FINAL IMPRESSION: This patient has a right dominant system. Slightly elevated filling pressures. No gradient across aortic valve. She has minor irregularities but no significant obstructive CAD. There is mild calcification of the coronary arteries. RECOMMENDATIONS: Continued medical therapy with risk factor modification and resumption of Xarelto is advised. The patient can be discharged later on today and Xarelto to be taken tonight and I will see her in the office to check her site next Wednesday. After that she is free to follow up with her depot agent in [place] or with me. I had a nice discussion with the patient and family and she can be discharged at any time. MMODL / IJN: [id number] /
--- NOTE | 2021-02-21 12:29 | P.DS ---
<Wendie Guzmán A - Last Filed: 02/21/21 12:25> Providers Expected date of discharge: 02/21/21 Hospital Course: HISTORY OF PRESENT ILLNESS This is an 85-year-old female patient of Dr. Jon Santa with past medical history of COPD, hypertension, hyperlipidemia, paroxysmal atrial fibrillation, colon cancer, chronic hypoxic respiratory failure on home O2, remote history of tobacco use. Patient was hospitalized at [facility] in November of this year for COVID-19 at that time was established with the newspaper photo editor there and also establish with Dr. Brizuela pulmonology with repeat appointment on March 11. Patient complains of chest pain that was all over chest and up into her neck and down her left arm. It started 132 nights ago and stayed until she arrived in the hospital. She states she has had a cough and blood in her sputum but has had 2 recent nosebleeds. She denies having any fever or chills. No choking with eating. She denies any diarrhea. She denies any sick contacts, no orthopnea. She states she has been taking all her medications as directed. Patient presented to [facility] emergency center for evaluation. Temperature max 100.0, heart rate 72, blood pressure 119/59, pulse ox 87%. EKG was a sinus rhythm with T-wave inversions in V3 through V6. Chest x-ray revealed pneumonia and atelectasis at the lung bases with small pleural effusions. No obvious heart failure. WBC 9.3, hemoglobin 9.8, platelet count 317. Sodium 134, potassium 3.4, chloride 95, CO2 20 creatinine 0.57. Blood sugar 142. Liver function tests were normal. Coronavirus PCR not detected. Troponin negative on 3 draws. Patient received 1 L of IV fluids, Nitro-Bid and placed in the observation unit and cardiology consult requested. Patient has been started on antibiotics. She has been seen by cardiology and heart catheterization was offered to her. Family in the meantime have reached out to her broadcast operations technician at [facility] and in the process of making arrangements for heart catheterization at [place]. Awaiting further details and bed availability. Daughter is on her way to the patient's room and plan will be determined. 02/21: Patient has decided to stay at [facility] for heart catheterization which is scheduled for today with Dr. HADLEY Uribe. Patient was found to have no significant obstructive coronary artery disease. There is mild calcifications of the coronary arteries and medical management was recommended. Patient cleared to resume Xarelto for tonight. Patient follow-up with Dr. Uribe on Wednesday and then her broadcast operations technician at [place].. Patient has been seen by Dr. Thompson for bilateral pulmonary fibrosis and recommended maintenance prednisone to start at 40 mg and taper down to 10 mg over the course of several weeks. Patient has been afebrile, heart rate 84, blood pressure 97/63, pulse ox 96% on 2 L nasal cannula. TR band in place to the right wrist. Full range of motion to the fingers. No bleeding noted. Regarding patient's low blood pressure, blood pressure medications have been adjusted and cut in half and timing changed. Please see discharge medication list. Patient denies having any chest pain or shortness of breath. She is anxious to go home today. Patient will be discharged home today in stable condition. ASSESSMENT AND PLAN 1. Chest pain with negative troponins and negative heart catheterization for obstructive coronary artery disease. 2. Bilateral pneumonia ruled out by Dr. Thompson. Patient has pulmonary fibrosis. 3. COPD, Stable without exacerbation. 4. Hypertension. 5. Hyperlipidemia. 6. Paroxysmal atrial fibrillation. 7. Remote history of tobacco use. 8. COVID-19 testing negative. Patient has been hospitalized during a pandemic. DISCHARGE PLAN Home Impression and plan of care have been directed as dictated by the signing physician. Wendie Guzmán nurse practitioner acting as scribe for signing physician. Patient Condition at Discharge: Good Plan - Discharge Summary Discharge Rx Participant: No New Discharge Prescriptions: New predniSONE 0 mg PO DIRECTED #50 tab Continue Levothyroxine Sodium [Synthroid] 200 mcg PO DAILY Nitrofurantoin Monohyd/M-Cryst [Macrobid] 100 mg PO MOWEFR Metoprolol Tartrate [Lopressor] 25 mg PO HS Flecainide Acetate 50 mg PO Q12HR Cyclobenzaprine [Flexeril] 10 mg PO HS Calcium Carbonate/Vitamin D3 [Calcium 600 mg-Vit D3 5 mcg (200 unit)] 1 tab PO DAILY Rivaroxaban [Xarelto] 20 mg PO W/SUPPER Pravastatin Sodium [Pravachol] 40 mg PO DAILY Metoprolol Tartrate [Lopressor] 50 mg PO DAILY Meclizine HCl 25 mg PO DAILY Changed amLODIPine [Norvasc] 5 mg PO DAILY #0 Lisinopril-Hctz 20-25 mg [Zestoretic 20-25] 0.5 tab PO HS #0 Discontinued Ibuprofen [Motrin] 800 mg PO DAILY PRN PRN Reason: Pain Discharge Medication List Calcium Carbonate/Vitamin D3 [Calcium 600 mg-Vit D3 5 mcg (200 unit)] 1 tab PO DAILY 02/19/21 [History] Cyclobenzaprine [Flexeril] 10 mg PO HS 02/19/21 [History] Flecainide Acetate 50 mg PO Q12HR 02/19/21 [History] Levothyroxine Sodium [Synthroid] 200 mcg PO DAILY 02/19/21 [History] Meclizine HCl 25 mg PO DAILY 02/19/21 [History] Metoprolol Tartrate [Lopressor] 25 mg PO HS 02/19/21 [History] Metoprolol Tartrate [Lopressor] 50 mg PO DAILY 02/19/21 [History] Nitrofurantoin Monohyd/M-Cryst [Macrobid] 100 mg PO MOWEFR 02/19/21 [History] Pravastatin Sodium [Pravachol] 40 mg PO DAILY 02/19/21 [History] Rivaroxaban [Xarelto] 20 mg PO W/SUPPER 02/19/21 [History] Lisinopril-Hctz 20-25 mg [Zestoretic 20-25] 0.5 tab PO HS #0 02/21/21 [Rx] amLODIPine [Norvasc] 5 mg PO DAILY #0 02/21/21 [Rx] predniSONE 0 mg PO DIRECTED #50 tab 02/21/21 [Rx] Follow up Appointment(s)/Referral(s): Isa Uribe MD [STAFF PHYSICIAN] - 02/26/21 8:45 am Jon Santa MD [Primary Care Provider] - 1-2 days Patient Instructions/Handouts: Heart Catheterization (DC) Discharge Disposition: HOME SELF-CARE <Bri Nazario - Last Filed: 02/28/21 13:59> Providers Date of admission: 02/20/21 09:58 Attending physician: Neil Lee Consults: 02/19/21 20:34 Consult Physician Urgent Consulting Provider: [facility] Consult Reason/Comments: Unstable angina Do you want consulting provider notified?: Yes 02/20/21 09:17 Consult Physician Routine Consulting Provider: Cristofer Thompson Consult Reason/Comments: pneumonia Do you want consulting provider notified?: Yes Primary care physician: Jon Santa
[2021-02-21 15:07] VITALS: BP 138/77; PULSE 98; RESP 18; TEMP 97.6
[2021-02-21] MEDS ORDERED: RIVAROXABAN 20 MG TAB PO SCH (17:30)
--- NOTE | 2021-02-22 11:55 | P.PN ---
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 Acute on chronic hypoxic respiratory failure Group 3 pulmonary hypertension moderate category Baseline COPD Chest pain Chronic atrial fibrillation on direct oral anticoagulant 02/22/2021, patient seen eval examined during the rounds labs reviewed medications reviewed care plan discussed, denies any chest pain shortness of breath is there, respiratory status stable on supplemental oxygen, patient is status post cardiac cath angiogramin, no coronary artery disease has been noted,, patient likely will require long course of oral tapering his steroids, patient has a bagging machine operator in [place] she expresses that she will follow with him and discuss it, 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 with development of pulmonary fibrosis and secondary pulmonary hypertension This is a 85-year-old female who has COPD as a baseline condition, patient also has a history of coronary 19 pneumonia with respiratory failure diagnosed in November of this year, patient has been having shortness of breath and residual fibrosis in the lung post pneumonia has been on 2 L oxygen unable to wean off of it, she came into the hospital with chest pain of one day duration, cardiology has recommended to do cardiac catheter angiogram, echocardiogram revealed eje ction fraction of 55-60%, patient has a mild to moderate pulmonary hypertension with RVSP of 46 on echocardiogram, chest x-ray performed at the time admission revealed coarse bilateral interstitial infiltrate likely suggestive of pulmonary fibrosis, covid 19 testing is negative Objective - Vital Signs Vital signs: Vital Signs Temp 97.6 F 02/21/21 15:00 Pulse 98 02/21/21 15:00 Resp 18 02/21/21 15:00 BP 138/77 02/21/21 15:00 Pulse Ox 99 02/21/21 15:00 Intake & Output 02/20/21 02/21/21 02/21/21 18:59 06:59 18:59 Intake Total 50 Balance 50 Intake: IV 50 Other: Voiding Method Toilet Toilet Toilet # Voids 1 2 2 - Exam - Constitutional General appearance: cooperative, disheveled - EENT Eyes: EOMI, PERRLA Ears: bilateral: normal - Neck Carotids: bilateral: upstroke normal Thyroid: bilateral: normal size - Respiratory Respiratory: bilateral: rales (Bilateral dry areas well-controlled type likely indicated above pulmonary fibrosis) - Cardiovascular Rhythm: regular Heart sounds: normal: S1, S2 - Gastrointestinal General gastrointestinal: normal bowel sounds - Neurologic Neurologic: CNII-XII intact - Musculoskeletal Musculoskeletal: gait normal, generalized weakness, strength equal bilaterally - Psychiatric Psychiatric: A&O x's 3, appropriate affect, intact judgment & insight - Labs CBC & Chem 7: 02/19/21 17:21 02/21/21 06:22 Labs: Abnormal Lab Results - Last 24 Hours (Table) 02/21/21 Range/Units 06:22 Potassium 3.2 L (3.5-5.5) mmol/L BUN/Creatinine Ratio 25.00 H (12.00-20.00) Ratio Glucose 127 H (70-110) mg/dL Calcium 8.3 L (8.7-10.3) mg/dL Assessment and Plan Assessment: 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
== END 2021-02-21 17:50 | disposition home or self-care (01) ==
LOC: EC 16:23 → 6NMEDSUR 20:42 → INTOOBSV 02-20 09:58 → OBSVTOIN 02-20 09:58 → UNDODISIN 02-21 17:50
PROVIDERS: ADMIT Internal Medicine Geriatric Medicine; ATTEND Internal Medicine Geriatric Medicine
DX: R07.89 Other chest pain (principal); J96.21 Acute and chronic respiratory failure with hypoxia; J84.178 Other interstitial pulmonary diseases with fibrosis in diseases classified elsewhere; Z86.16 Personal history of COVID-19; I27.23 Pulmonary hypertension due to lung diseases and hypoxia; I48.20 Chronic atrial fibrillation, unspecified; J44.9 Chronic obstructive pulmonary disease, unspecified; I10 Essential (primary) hypertension; E78.5 Hyperlipidemia, unspecified; E78.00 Pure hypercholesterolemia, unspecified; Z99.81 Dependence on supplemental oxygen; I08.1 Rheumatic disorders of both mitral and tricuspid valves; R04.0 Epistaxis; J90 Pleural effusion, not elsewhere classified; Z79.890 Hormone replacement therapy; Z79.01 Long term (current) use of anticoagulants; Z79.1 Long term (current) use of non-steroidal anti-inflammatories (NSAID); Z79.899 Other long term (current) drug therapy; Z90.710 Acquired absence of both cervix and uterus; Z87.891 Personal history of nicotine dependence; Z85.038 Personal history of other malignant neoplasm of large intestine; Z87.01 Personal history of pneumonia (recurrent); Z98.890 Other specified postprocedural states; Z83.3 Family history of diabetes mellitus; Z82.49 Family history of ischemic heart disease and other diseases of the circulatory system; Z80.52 Family history of malignant neoplasm of bladder
CPT/HCPCS: 96365; 96366; 93005 ×2; 96361; 99285; 36415; 94760; 93306; 93458; 80061; 80053; 80048; 84443; 83735; 84484 ×2; 85025; 85610; 85730; 87635; 71046; G0378 ×3; C1769; C1894; J2250; J2001; J0696 ×2; J1644; J7512; Q9966; 96360

== ENCOUNTER → 2021-03-11 | Outpatient (CLI) | payer MEDICARE ==
[2021-03-11 22:03] LABS: HCT 35.3 % (37.2-46.3); HGB 10.2 g/dL (12.0-15.0); MCH 25.5 pg (27.0-32.0); MCHC 28.9 g/dL (32.0-37.0); MCV 88.3 fL (80.0-97.0); Mean Platelet Volume 10.5 fL (9.5-12.2); Platelet Count 341 X 10*3/uL (140-440); RDW 15.5 % (11.5-14.5); WBC 10.18 X 10*3/uL (4.50-10.00)
[2021-03-12 00:31] LABS: % Iron Saturation 10.32 (12.00-45.00)
[2021-03-12 00:45] LABS: Folate, Serum 11.4 ng/mL
== END | disposition home or self-care (01) ==
LOC: LABWHC1 11:19
PROVIDERS: ATTEND Internal Medicine Cardiovascular Disease
DX: D64.9 Anemia, unspecified (principal)
CPT/HCPCS: 36415; 82607; 82746; 83540; 83550; 85027

== ENCOUNTER → 2021-04-24 | Outpatient (CLI) | payer MEDICARE ==
--- NOTE | 2021-04-24 09:32 | US ---
EXAMINATION TYPE: US gallbladder DATE OF EXAM: 04/24/2021 COMPARISON: NONE CLINICAL HISTORY: R70.89 chest pain. Abd pain EXAM MEASUREMENTS: Liver Length: 15.9 cm Gallbladder Wall: 0.2 cm CBD: 0.6 cm Right Kidney: 11.7 x 4.4 x 4.3 cm Pancreas: Partially obscured by bowel gas. There is a non-peristalsing fluid collection superior to the pancreas measuring 2.1 x 1.0 x 1.8 cm Liver: Echogenic area visualized right lobe measuring 1.8 x 1.7 x 1.7 cm Gallbladder: Appears hydropic. Non-shadowing echogenic debris visualized, possible sludge vs other Evidence for sonographic Gayle's sign: Yes CBD: wnl for patient's age Right Kidney: Cyst mid pole measuring 2.6 cm IMPRESSION: 1. 1.8 cm hyperechoic lesion within the liver is nonspecific on this examination. It may simply repre sent an hemangioma, however, other etiologies are possible. CT versus MRI with and without contrast l iver mass protocol could be obtained for further evaluation if clinically warranted. 2. Distended gallbladder containing small amount of echogenic debris which may represent calculi vers us sludge.
== END | disposition home or self-care (01) ==
LOC: RADUSWWP 08:14
PROVIDERS: ATTEND Internal Medicine Gastroenterology
DX: K76.9 Liver disease, unspecified (principal); K82.8 Other specified diseases of gallbladder
CPT/HCPCS: 76705

== ENCOUNTER → 2021-05-02 | Day surgery (SDC) | payer MEDICARE ==
[2021-04-30 08:59] VITALS: BMI 26.4
[~2021-05-02] MED LIST: IV FLUID CONTINUATION 1,000 ML IV ONE; LACTATED RINGERS 1,000 ML IV SCH; LIDOCAINE 1% (10MG/ML) FOR IV START INTRADERMA PRN; LIDOCAINE 1% INJ 10MG/ML (20 ML MDV) ONE; PROPOFOL 10 MG/ML 20 ML VIAL IV ONE
[2021-05-02 13:07] VITALS: TEMP 97.6
--- NOTE | 2021-05-02 14:26 | P.PCN ---
Date of Procedure: 05/02/21 Procedure(s) Performed: Brief history: Patient is a pleasant 85-year-old white female scheduled for an elective upper endoscopy as well as colonoscopy as a part of evaluation of iron deficiency anemia. She also has been complaining of intermittent chest pain. She has history of colon cancer in 2001 status post surgical resection at that time. Her last colonoscopy was 6 years ago. She has history of A. fib and currently on Xarelto which has been on hold. Procedure performed: Esophagogastroduodenoscopy with biopsy Attempted Colonoscopy Preoperative diagnosis: Iron deficiency anemia History of colon cancer in 1999 Anesthesia: MAC Procedure: After informed consent was obtained from the patient was brought into the endoscopy unit and IV sedation was administered by anesthesia under continuous monitoring. Initially upper endoscopy was done. The Olympus GF 160 video endoscope was inserted inserted into the mouth and esophagus intubated without any difficulty and was gradually advanced into the stomach and duodenum and carefully examined. The bulb and second part of the duodenum appeared normal. Biopsies were done from the duodenum to rule out celiac disease. The scope was then withdrawn into the stomach adequately insufflated with air and upon careful examination the antrum appeared normal. In the proximal body the stomach there was mild diffuse gastritis and biopsies were done from this area. Rest of the body, cardia and fundus appeared normal. The scope was then withdrawn into the esophagus. The GE junction was located at 40 cm to the incisors. It appeared regular with no erythema erosions or ulcerations. Rest of the esophagus appeared normal. Patient tolerated the procedure well. At this time the patient continued to remain sedation. Initial digital rectal examination was normal. Olympus CF 160 video colonoscope was then inserted into the rectum and gradually advanced to the tic more: and scope could not be advanced any further. There was extensive sigmoidal diverticulosis seen. Very poor prep and a could not advance the scope safely any further and hence the procedure was terminated. There was extensive sigmoid diverticula seen. Patient tolerated the procedure well. Impression: 1. Upper endoscopy revealed mild gastritis involving the proximal body the stomach but no evidence of peptic ulcer disease 2. Attempted colonoscopy up to the sigmoid colon there was extensive diverticulosis seen. Scope with me could not be advanced safely beyond this area because of acute angulation and poor prep encountered Recommendations: Findings of this examination were discussed with the patient as well as her family. she was advised to follow with the biopsy results. He will resume Xarelto today. We'll plan on repeat colonoscopy with a two-day prep in 2-3 weeks.
[2021-05-02 15:03] VITALS: BP 127/78; PULSE 89; RESP 18
--- NOTE | 2021-05-02 16:37 | FL ---
EXAMINATION TYPE: FL barium enema DATE OF EXAM: 05/02/2021 COMPARISON: None HISTORY: Incomplete colonoscopy TECHNIQUE: Single contrast technique is utilized. There is abundant bowel gas present from the colono scopy. Fluoroscopy time 1 minute 9 seconds. Images: 33 FINDINGS: Contrast is refluxed through the colon to the anastomosis in the right upper quadrant. Smal l bowel loops are identified. There are numerous diverticuli present throughout the colon. No suspicious area for circumferential n arrowing is identified. The anastomosis is not clearly identified. No suspicious large filling defect s are identified. IMPRESSION: 1. Diverticulosis without acute diverticulitis. 2. Redundant sigmoid colon.
== END ==
LOC: ORWHC2ENDO 12:27
PROVIDERS: ATTEND Internal Medicine Gastroenterology
DX: K29.50 Unspecified chronic gastritis without bleeding (principal); K57.30 Diverticulosis of large intestine without perforation or abscess without bleeding; D50.9 Iron deficiency anemia, unspecified; Z85.038 Personal history of other malignant neoplasm of large intestine; Z90.49 Acquired absence of other specified parts of digestive tract; I48.91 Unspecified atrial fibrillation; Z79.01 Long term (current) use of anticoagulants; J44.9 Chronic obstructive pulmonary disease, unspecified; I10 Essential (primary) hypertension; E07.9 Disorder of thyroid, unspecified; Z87.19 Personal history of other diseases of the digestive system; Z79.890 Hormone replacement therapy; Z79.899 Other long term (current) drug therapy; Z90.710 Acquired absence of both cervix and uterus; Z98.890 Other specified postprocedural states
CPT/HCPCS: 88305; 74270; 45378; 43239; J2001; J2704; 45330

== ENCOUNTER → 2021-06-17 | Outpatient (CLI) | payer MEDICARE ==
[2021-06-17 16:00] LABS: Basophils # (A) 0.05 X 10*3/uL (0.00-0.10); Basophils % (A) 0.7 %; Eosinophils % (A) 4.5 %; HCT 34.8 % (37.2-46.3); HGB 9.9 g/dL (12.0-15.0); Lymphocytes # (A) 1.63 X 10*3/uL (0.90-5.00); Lymphocytes % (A) 24.3 %; MCH 25.8 pg (27.0-32.0); MCHC 28.4 g/dL (32.0-37.0); MCV 90.6 fL (80.0-97.0); Mean Platelet Volume 10.2 fL (9.5-12.2); Monocytes # (A) 0.55 X 10*3/uL (0.20-1.00); Monocytes % (A) 8.2 %; Neutrophils # (A) 4.15 X 10*3/uL (1.80-7.70); Neutrophils % (A) 61.9 %; Platelet Count 336 X 10*3/uL (140-440); RBC 3.84 X 10*6/uL (4.10-5.20); RDW 16.1 % (11.5-14.5); WBC 6.71 X 10*3/uL (4.50-10.00)
[2021-06-17 20:48] LABS: % Iron Saturation 9.67 (12.00-45.00)
[2021-06-17 21:26] LABS: Ferritin 16.6 ng/mL (10.0-291.0)
== END | disposition home or self-care (01) ==
LOC: LABWHC1 10:54
PROVIDERS: ATTEND Internal Medicine Gastroenterology
DX: D50.9 Iron deficiency anemia, unspecified (principal)
CPT/HCPCS: 36415; 82728; 83540; 83550; 85025

== ENCOUNTER → 2021-09-10 | Outpatient (CLI) | payer MEDICARE ==
--- NOTE | 2021-09-10 20:43 | MR ---
EXAMINATION TYPE: MR brain wo/w con DATE OF EXAM: 09/10/2021 COMPARISON: NONE HISTORY: Newly diagnosed Lung cancer, evaluate for metastatic disease. TECHNIQUE: Multiplanar, multisequence images of the brain and brainstem is performed without and with IV contras t, utilizing 6 mL intravenous Gadavist . FINDINGS: Diffusion weighted images demonstrate no evidence of a recent infarct or other diffusion ab normality. There is mild to moderate ventricular and sulcal prominence. Scattered foci of T2 hyperin tensity are seen throughout the white matter bilaterally. Approximately 40-50 small scattered lesions are present. Midline structures demonstrate normal morphology. The craniocervical junction appears within normal limits. Post contrast images demonstrate oval heterogeneous enhancing 12 x 9 x 10 mm lesion medial left tempo ral lobe with surrounding vasogenic edema axial image 50 and coronal image 60. Vasogenic edema extend s into floppy left aspect of the midbrain inferiorly. There is second subtle 3 mm high right parietal enhancing focus axial image 84 just off the midline to small to further characterize, early metastat ic lesion not excluded corresponding to coronal image 72. The dural venous sinuses appear patent. The visualized sinuses are clear and the globes are intact. IMPRESSION: There is 12 mm oval homogeneous enhancing metastatic lesion medial left temporal lobe wit h surrounding vasogenic edema. Possible second subtle 3 mm metastatic focus high right parietal regio n. Background mild to moderate diffuse cerebral atrophy and moderate chronic small vessel ischemic ch anges noted.
== END | disposition home or self-care (01) ==
LOC: RADMRIMAIN 18:57
PROVIDERS: ATTEND Internal Medicine Hematology & Oncology
DX: C34.92 Malignant neoplasm of unspecified part of left bronchus or lung (principal)
CPT/HCPCS: 70553; A9585

== ENCOUNTER 2021-10-17 12:07 | Day surgery (SDC) | payer MEDICARE ==
[2021-10-15 11:41] VITALS: BMI 24.5
[~2021-10-17 12:07] MED LIST changes: +ACETAMINOPHEN TAB 500 MG TAB PO PRN; +DEXAMETHASONE SOD PHOSPHATE 4 MG/ML 1 ML VIAL IV ONE; +HEPARIN SODIUM,PORCINE/PF 5,000 UNIT/0.5 ML SYRINGE SQ PRN; +HYDROmorphone 0.5 MG/0.5 ML SYRINGE IVP PRN; -IV FLUID CONTINUATION 1,000 ML IV ONE; -LIDOCAINE 1% (10MG/ML) FOR IV START INTRADERMA PRN; -LIDOCAINE 1% INJ 10MG/ML (20 ML MDV) ONE; +MIDAZOLAM 2 MG/2 ML VIAL IV PRN; +ONDANSETRON 4 MG/2 ML VIAL IVP ONE; -PROPOFOL 10 MG/ML 20 ML VIAL IV ONE; +Pre Op ABX Message 1 EACH MISC MISCELLANE ONE
[2021-10-17 12:33] VITALS: TEMP 98
--- NOTE | 2021-10-17 13:50 | P.GSHP ---
History of Present Illness H&P Date: 10/17/21 Chief Complaint: Right lung cancer Patient here today for Port-A-Cath placement. She was recently diagnosed with metastatic right-sided lung cancer. She has not had a port previously. Mild dyspnea on exertion. Past Medical History Past Medical History: Atrial Fibrillation, Cancer, COPD, Hyperlipidemia, Hypertension, Pneumonia Additional Past Medical History / Comment(s): COVID-11/2020-"long hauler symptom s", COLON CANCER 2001. 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, anemia-getting iron infusions, UTI's History of Any Multi-Drug Resistant Organisms: None Reported Past Surgical History: Back Surgery, Bowel Resection, Cardiac Ablation, Hysterectomy, Orthopedic Surgery Additional Past Surgical History / Comment(s): Bunion surg, spinal fusion, thyroidectomy, kristina hand surgery, Past Anesthesia/Blood Transfusion Reactions: Motion Sickness Additional Past Anesthesia/Blood Transfusion Reaction / Comment(s): vertigo, Smoking Status: Former smoker - Past Family History Mother Family Medical History: Myocardial Infarction ([place]) Father Family Medical History: Diabetes Mellitus Brother(s) Family Medical History: Cancer Additional Family Medical History / Comment(s): bladder cancer,lung Medications and Allergies Home Medications Medication Instructions Recorded Confirmed Type Cyclobenzaprine [Flexeril] 10 mg PO HS 02/19/21 10/15/21 History Meclizine HCl 25 mg PO DAILY 02/19/21 10/15/21 History Nitrofurantoin Monohyd/M-Cryst 100 mg PO MOWEFR 02/19/21 10/15/21 History [Macrobid] Pravastatin Sodium [Pravachol] 40 mg PO HS 02/19/21 10/15/21 History Fluticasone/Umeclidin/Vilanter 1 inhalation INHALATION DAILY 04/30/21 10/15/21 History [Trelegy Ellipta 100-62.5-25] Amiodarone [Cordarone] 200 mg PO DAILY 10/15/21 10/15/21 History Celecoxib [CeleBREX] 200 mg PO DAILY 10/15/21 10/15/21 History Cholecalciferol (Vitamin D3) 125 mcg PO DAILY 10/15/21 10/15/21 History [Vitamin D3 (125 MCG = 5,000 IU)] Cyanocobalamin (Vitamin B-12) 1,000 mcg PO DAILY 10/15/21 10/15/21 History [Vitamin B-12] DULoxetine HCL [Cymbalta] 20 mg PO BID 10/15/21 10/15/21 History Famotidine [Pepcid] 20 mg PO DAILY 10/15/21 10/15/21 History Levothyroxine Sodium [Synthroid] 150 mcg PO QAM 10/15/21 10/15/21 History Lisinopril-Hctz 10-12.5 mg 1 tab PO DAILY 10/15/21 10/15/21 History [Zestoretic 10-12.5] Ondansetron [Zuplenz] 8 mg PO TID PRN 10/15/21 10/15/21 History Potassium Chloride [Klor-Con 10 ER] 10 meq PO QAM 10/15/21 10/15/21 History amLODIPine [Norvasc] 5 mg PO QAM 10/15/21 10/15/21 History Allergies Allergy/AdvReac Type Severity Reaction Status Date / Time No Known Allergies Allergy Verified 10/15/21 11:16 Surgical - Exam Vital Signs Temp Pulse Resp BP Pulse Ox 98 F 86 17 127/61 95 10/17/21 12:32 10/17/21 12:32 10/17/21 12:32 10/17/21 12:32 10/17/21 12:32 Physical exam: General: Well-developed, well-nourished HEENT: Normocephalic, sclerae nonicteric Abdomen: Nontender, nondistended Extremities: No edema Neuro: Alert and oriented Assessment and Plan (1) Lung cancer Narrative/Plan: Will proceed with Port-A-Cath placement at this time. Risks of bleeding, infection, DVT, pneumothorax, catheter malfunction, anesthesia related complications were discussed. The patient understands and wishes to proceed. Current Visit: Yes Status: Acute Code(s): C34.90 - MALIGNANT NEOPLASM OF UNSP PART OF UNSP BRONCHUS OR LUNG SNOMED Code(s): 688231737
[2021-10-17] MEDS ORDERED: .fentaNYL (PF) 50 MCG/ML 2 ML AMP ONE (14:00)
[2021-10-17] MEDS ORDERED: KETAMINE 10 MG/ML 20 ML VIAL ONE (14:00)
[2021-10-17] MEDS ORDERED: PROPOFOL 10 MG/ML 20 ML VIAL IV ONE (14:00)
[2021-10-17] MEDS ORDERED: MIDAZOLAM 2 MG/2 ML VIAL ONE (14:00)
[2021-10-17] MEDS ORDERED: SODIUM CHLORIDE 0.9% 50 ML with ceFAZolin 1,000 MG IV ONE ×2 (14:30)
[2021-10-17] MEDS ORDERED: LIDOCAINE (PF) 10 MG/ML 2 ML VIAL SQ ONE (14:35)
[2021-10-17] MEDS ORDERED: HEPARIN SODIUM,PORCINE 100 UNIT/ML 5 ML VIAL IV ONE (14:41)
[2021-10-17] MEDS ORDERED: NALOXONE 0.4 MG/ML 1 ML VIAL IV PRN (15:00)
--- NOTE | 2021-10-17 15:01 | P.OP ---
Date of Procedure: 10/17/21 Procedure(s) Performed: PREOPERATIVE DIAGNOSIS: Metastatic lung cancer POSTOPERATIVE DIAGNOSIS: Same PROCEDURE: Port-A-Cath placement with fluoroscopic and ultrasound guidance SURGEON: Luz EBL: Minimal ANESTHESIA: Sedation COMPLICATIONS: None OPERATIVE PROCEDURE: Patient was brought and placed on the operative table in the supine position. The patient was sedated per anesthesia that time. The chest and neck were prepped and draped in usual sterile fashion. The ultrasound probe was used to identify the location of the right internal jugular vein. The skin was localized with lidocaine. The Seldinger needle was advanced into the IJ under ultrasound guidance. The wire was advanced through the needle under fluoroscopic guidance into the superior vena cava. A port pocket was created in the right infraclavicular location. The catheter was tunneled from the wire entrance site to the port pocket. The port was then connected to the catheter. The dilator introducer was threaded over the guidewire. The guidewire and dilator were then removed. The catheter was advanced through the introducer and introducer was then removed. The tip was seen to be in the right atrial junction via fluoroscopy. A picture of the radiograph showing the tip at the radial digital junction was taken. Port was flushed with both saline and a Hep- Lock solution. There was good flow both in and out of the port. The port was sutured in underlying tissues using 3-0 silk sutures. The subcutaneous tissues were reapproximated using 3-0 Vicryl sutures and the skin at both locations using 4-0 Monocryl sutures. Skin glue and sterile dressings then applied. DISPOSITION: Stable to recovery room
--- NOTE | 2021-10-17 15:29 | XR ---
EXAMINATION TYPE: XR chest 1V confirm line [facility] DATE OF EXAM: 10/17/2021 HISTORY: Shortness of breath. COMPARISON: 02/19/21 TECHNIQUE: Single view of the chest is submitted. FINDINGS: Demonstrated are scattered senescent parenchymal change. Right IJ central venous line with its dista l tip overlying the SVC. No evidence for pneumothorax. There is no evidence for focal infiltrate. The heart is stable. Hilar and mediastinal structures are within normal limits. Degenerative changes are seen of the dorsal spine. IMPRESSION: 1. Right IJ central venous line with its distal tip overlying the SVC. No evidence for pneumothorax.
[2021-10-17 15:33] VITALS: BP 128/67; PULSE 71; RESP 15
--- NOTE | 2021-10-17 16:31 | FL ---
Fluoroscopy History: PORT A CATH INSERTION PORT A CATH INSERTION- Dr Escobar- alex time 20 sec. 2 images saved
== END 2021-10-17 15:58 | disposition home or self-care (01) ==
LOC: OR 12:07
PROVIDERS: ATTEND Surgery
DX: C34.90 Malignant neoplasm of unspecified part of unspecified bronchus or lung (principal); C77.9 Secondary and unspecified malignant neoplasm of lymph node, unspecified
CPT/HCPCS: 36561; 77001; C1788; J2250; J2001; J1642; J1100; J2405; J0690; J3010; J2704; J1644

== ENCOUNTER → 2021-11-28 | Outpatient (CLI) | payer MEDICARE ==
--- NOTE | 2021-12-03 10:47 | PE ---
Nuclear medicine PET/CT HISTORY: Right upper lobe lung carcinoma, subsequent, C 34.11 Patient received 13.9 mCi F-18 FDG intravenously in delayed scanning was performed from the skull bas e to the mid thighs. A localization and attenuation correction CT scan was performed. Correlation to chest CT 12/31/2020 Chest and neck: There is no cervical or supraclavicular adenopathy. Right-sided Port-A-Cath is presen t left pectoral region coursing via a jugular approach, distal tip the catheter is within the right a trium. There are coronary artery calcifications. No mediastinal, axillary, or hilar adenopathy. No whalen spicious uptake. Interstitial changes are again noted within the lungs. ABDOMEN: There is no evident liver mass, no adrenal mass. No retroperitoneal adenopathy or suspicious uptake. Uptake associated with the bowel is indeterminate but felt likely to be physiologic. There a re some postop changes noted to the bowel. Extensive diverticular changes also present. No pelvic carmen nopathy or free fluid. Osseous structures show mild uptake in several vertebral bodies, right femoral neck SUV values 1.8-2. 3. , Findings felt likely to be degenerative, postop changes are noted in the lumbar spine. There is a sclerotic focus in the right 12 rib, the posterior elements of T12 on the left within the pedicle w ithout associated uptake. IMPRESSION: No evident recurrence.
== END | disposition home or self-care (01) ==
LOC: RADPETMAIN 10:14
PROVIDERS: ATTEND Internal Medicine Hematology & Oncology
DX: C34.11 Malignant neoplasm of upper lobe, right bronchus or lung (principal)
CPT/HCPCS: 78815; A9552

== ENCOUNTER → 2021-12-04 | Outpatient (CLI) | payer MEDICARE ==
--- NOTE | 2021-12-04 11:49 | MR ---
EXAMINATION TYPE: MR brain wo/w con DATE OF EXAM: 12/04/2021 COMPARISON: MR brain 09/10/2021 HISTORY: Follow up, comparison to prior MRI, post radiation treatment. Secondary malignant neoplasm o f brain TECHNIQUE: Multiplanar, multisequence images of the brain and brainstem is performed without and with IV contras t, utilizing 6 mL intravenous Gadavist . FINDINGS: Diffusion weighted images demonstrate no evidence of a recent infarct or other diffusion ab normality. There is no extra-axial fluid collection or significant interval change in extensive whit e matter signal abnormality with the exception of the abnormal signal on inversion recovery T2-weight ed sequences along the distribution of the mass which shows improvement along the region of the inter nal capsule and left cerebral peduncle and brainstem. The ventricular system and cisternal spaces ar e normal in size and appearance. The brain volume is age appropriate. Midline structures demonstrate stable morphology with a partially empty sella. The craniocervical ju nction appears within normal limits. Post contrast images demonstrate improvement in the abnormal en hancement seen on previous exam involving the posterior left cerebral peduncle extending into the reg ion of the internal capsule. The area of abnormal enhancement now measures approximately 10 to 11 mm in greatest dimension by 9 mm in cephalad to caudal dimension by 5 mm in AP dimension compared to pre vious exam when it measured approximately 13 to 14 mm in greatest dimension by 9 mm in AP dimension b y 12 mm in cephalad to caudal dimension. Additional 3 mm focus towards the convexity and the right pa rietal lobe seen on prior exam is not seen on the current exam. The dural venous sinuses appear paten t. The visualized sinuses are clear and the globes are intact. IMPRESSION: There is improvement in the abnormal signal seen on prior exam as described.
== END | disposition home or self-care (01) ==
LOC: RADMRIMAIN 09:33
PROVIDERS: ATTEND Radiology Radiation Oncology
DX: C79.31 Secondary malignant neoplasm of brain (principal)
CPT/HCPCS: 70553; A9585

== ENCOUNTER → 2022-02-13 | Outpatient (CLI) | payer MEDICARE ==
--- NOTE | 2022-02-15 09:16 | PE ---
EXAMINATION TYPE: PET CT fusion skull to thigh DATE OF EXAM: 02/13/2022 COMPARISON: Prior PET/CT November 28, [address] HISTORY: Lung cancer progress study originally diagnosed in November 2020, completed chemotherapy in December 2021. Radiation treatment 2021 per patient. TECHNIQUE: Following the intravenous administration of 8.18 mCi of F-18 FDG, whole body images are p erformed from the skull base to the midthigh. Images are reviewed on the computer in the coronal, ax ial, and sagittal planes. Reconstructed rotating images are created on independent workstation and r eviewed on the computer. A localization and attenuation correction CT is performed in conjunction w ith the PET scan. Blood glucose level was 91 SCAN: Subsequent Scan FINDINGS: SKULL BASE AND NECK: No new areas of abnormal hypermetabolic uptake CHEST, MEDIASTINUM, AND HILAR REGION: Stable mild underlying emphysematous change. Stable mild to mod erate parenchymal scarring and/or atelectasis bilaterally. Stable anterior 8 x 6 mm right upper lung nodule axial image 61 remains ametabolic. No new abnormal hypermetabolic uptake. ABDOMEN AND PELVIS: Normal excretion. No new adrenal masses. Nonspecific bowel uptake throughout the abdomen and pelvis more prominent near level of surgical sutures mid to lower abdomen just right of m idline should be correlated clinically. No definitive new abnormal hypermetabolic uptake. OSSEOUS STRUCTURES: No definitive new areas of abnormal hypermetabolic uptake. OTHER CT: Stable right internal jugular Mediport catheter. Persistent cardiomegaly with enlarged pulm onary arteries consistent with underlying pulmonary hypertension. At least moderate coronary artery c alcification is redemonstrated. Ascending aorta measures up to 3.8 cm in diameter on current study. Distended gallbladder with dependent density favoring small stones and/or sludge. Surgical changes fr om partial proximal colectomy redemonstrated. Marked diverticulosis in the left and sigmoid colon red emonstrated. Uterus surgically absent. Air-fluid level redemonstrated in the bladder. Correlate for s elf and/or recent catheterization otherwise other etiologies need to be considered. Stable small size d ventral wall hernia axial image 153. Postsurgical change to lower lumbar spine redemonstrated. IMPRESSION: No definitive abnormal hypermetabolic uptake to suggest active or recurrent neoplasm. Oth er findings as noted above.
== END | disposition home or self-care (01) ==
LOC: RADPETMAIN 14:44
PROVIDERS: ATTEND Internal Medicine Hematology & Oncology
DX: C34.11 Malignant neoplasm of upper lobe, right bronchus or lung (principal); R91.8 Other nonspecific abnormal finding of lung field
CPT/HCPCS: 78815; A9552

== ENCOUNTER → 2022-02-23 | Outpatient (CLI) | payer MEDICARE ==
--- NOTE | 2022-02-23 14:42 | US ---
EXAMINATION TYPE: US venous doppler duplex LE LT DATE OF EXAM: 02/23/2022 2:30 PM COMPARISON: Venous Doppler study dated 08/25/2013 CLINICAL HISTORY: R44.42 SWELLING LT LOWER LIMB. Left leg swelling SIDE PERFORMED: Left TECHNIQUE: The lower extremity deep venous system is examined utilizing real time linear array sonog torin with graded compression, doppler sonography and color-flow sonography. VESSELS IMAGED: Common Femoral Vein Deep Femoral Vein Superior aspect of the Greater Saphenous Vein * Femoral Vein Popliteal Vein Proximal Calf Veins (* superficial vessels) Left Leg: Negative for DVT, Probable complex Valenzuela's Cyst left pop fossa= 3.7 x 1.4 x 2.2 cm Attempted to call results to Dr's office at time of exam, no answer IMPRESSION: No evidence of DVT of the left lower extremity. Suspected Valenzuela's cyst as described above .
== END | disposition home or self-care (01) ==
LOC: RADUSWWP 14:06
PROVIDERS: ATTEND Internal Medicine Hematology & Oncology
DX: R22.42 Localized swelling, mass and lump, left lower limb (principal)

== ENCOUNTER → 2022-03-09 | Outpatient (CLI) | payer MEDICARE ==
--- NOTE | 2022-03-09 12:47 | MR ---
EXAMINATION TYPE: MR brain wo/w con DATE OF EXAM: 03/09/2022 12:28 PM COMPARISON: 12/04/2021 HISTORY: Secondary malignant neoplasm of brain CONTRAST: Patient received 6 mL intravenous Gadavist gadolinium contrast. Multiplanar and multispin-echo imaging of the brain was performed . Pre and post contrast enhanced i mages are obtained. The ventricles, basal cisterns and sulci overlying the cerebral convexities are mildly enlarged. There is evidence of mild periventricular white matter ischemic demyelination. Remote deep white matter insults are also noted. No acute edema is seen on diffusion weighted imaging. There is no evidence for midline shift or mass effect. Acute intracranial hemorrhage or extra-axial collection is not evident. Previously noted small enhancing focus at the level of the left internal capsule extending from the l eft cerebral peduncle does not persist on today's examination. There is continued fullness of the lef t cerebral peduncle without definite enhancement. No new areas of enhancement seen. The paranasal sinuses and mastoid air cells are well-aerated. IMPRESSION: 1. Age-related atrophic and chronic small vessel ischemic change. No acute intracranial process at t his time. 2. Previously noted small enhancing focus at the level of the left internal capsule extending from th e left cerebral peduncle does not persist on today's examination. There is continued fullness of the left cerebral peduncle without definite enhancement.
== END | disposition home or self-care (01) ==
LOC: RADMRIMAIN 11:30
PROVIDERS: ATTEND Radiology Radiation Oncology
DX: I67.82 Cerebral ischemia (principal); G31.9 Degenerative disease of nervous system, unspecified
CPT/HCPCS: 70553; A9585

== ENCOUNTER → 2022-04-20 | Outpatient (CLI) | payer MEDICARE | END | disposition home or self-care (01) | LOC: LABWHC1 09:31 | PROVIDERS: ATTEND Internal Medicine Cardiovascular Disease | DX: I48.0 Paroxysmal atrial fibrillation (principal) | CPT/HCPCS: 36415; 84439; 84443; 84450; 84460 ==

== ENCOUNTER → 2022-05-22 | Outpatient (CLI) | payer MEDICARE ==
--- NOTE | 2022-05-22 15:01 | PE ---
EXAMINATION TYPE: PET CT fusion skull to thigh DATE OF EXAM: 05/22/2022 COMPARISON: Prior PET/CT February 13, 2022 and older study November 08, 2021 HISTORY: Lung cancer originally diagnosed November 2020 completed immunotherapy and radiation treatmen t early 2021. TECHNIQUE: Following the intravenous administration of 9.6 mCi of F-18 FDG, whole body images are pe rformed from the skull base to the midthigh. Images are reviewed on the computer in the coronal, axi al, and sagittal planes. Reconstructed rotating images are created on independent workstation and re viewed on the computer. A localization and attenuation correction CT is performed in conjunction wi th the PET scan. Blood glucose level equals 91. SCAN: Subsequent Scan FINDINGS: SKULL BASE AND NECK: No new areas of abnormal hypermetabolic uptake CHEST, MEDIASTINUM, AND HILAR REGION: Stable mild underlying emphysematous change redemonstrated. Sta ble mild to moderate parenchymal scarring and/or atelectasis posteriorly bilaterally redemonstrated. Stable anterior 8 x 6 mm right upper lung nodule axial image 62 current study remains ametabolic. No new areas of abnormal hypermetabolic uptake. ABDOMEN AND PELVIS: Normal excretion. No new adrenal masses. Nonspecific bowel uptake throughout the abdomen and pelvis more prominent near level of surgical sutures mid to lower abdomen just right of m idline is redemonstrated and should be correlated clinically. Overall bowel uptake is slightly more p rominent from prior. No definitive new abnormal hypermetabolic uptake otherwise seen. OSSEOUS STRUCTURES: No definitive new areas of abnormal hypermetabolic uptake. Mild uptake at level o f left shoulder joint is redemonstrated may reflect inflammatory etiology. OTHER CT: Stable right internal jugular Mediport catheter. Persistent cardiomegaly with enlarged pulm onary arteries consistent with underlying pulmonary artery hypertension. At least moderate coronary a rtery calcification is redemonstrated. Ascending aorta measures up to 4.1 cm in diameter on current s tudy axial image 83. Distended gallbladder with small stone redemonstrated. Surgical changes from partial proximal colecto my redemonstrated. Marked diverticulosis in the left and sigmoid colon redemonstrated. Uterus surgica lly absent. Air-fluid level redemonstrated in the bladder. Correlate for recent catheterization other fry other etiologies such as fistula need to be considered. Stable small sized ventral wall hernia a xial image 153. Surgical coils right groin level from inguinal hernia repair surgery are redemonstrat ed. Postsurgical change to lower lumbar spine redemonstrated. IMPRESSION: No definitive new abnormal hypermetabolic uptake to suggest active recurrent neoplasm. O ther findings as noted above.
== END | disposition home or self-care (01) ==
LOC: RADPETMAIN 11:01
PROVIDERS: ATTEND Internal Medicine Hematology & Oncology
DX: C34.11 Malignant neoplasm of upper lobe, right bronchus or lung (principal)
CPT/HCPCS: 78815; A9552

== ENCOUNTER → 2022-06-04 | Outpatient (CLI) | payer MEDICARE ==
--- NOTE | 2022-06-07 18:35 | MM ---
Reason for Exam: Screening (asymptomatic). Last screening mammogram was performed 12 month(s) ago. Patient History: Menarche at age 14. First Full-Term at age 20. Left ovary removed at age 61. Right ovary removed at age 61. Hysterectomy at age 61. Postmenopausal. Colorectal cancer, age 66. Estrogen for 2 years from age 62 until age 64. Progesterone for 2 years from age 62 until age 64. Daughter had breast cancer at or over age 50. Risk Values: Ilana 5 year model risk: 2.6%. NCI Lifetime model risk: 2.9%. Prior Study Comparison: 10/15/2005 Bilateral Screening Mammogram, [facility]. 10/18/2006 Bilateral Screening Mammogram, [facility]. 03/15/2008 Bilateral Screening Mammogram, [facility]. Tissue Density: There are scattered fibroglandular densities. Findings: Analyzed By CAD. Benign bilateral vascular and scattered small punctate and round calcifications. Injection port projecting over the right pectoralis major on the MLO view. No significant change from prior exams. Overall Assessment: Benign, BI-RAD 2 Management: Screening Mammogram of both breasts in 1 year. 1. Patient should continue monthly self breast exams. 2. A clinical breast exam by your physician is recommended on an annual basis. 3. This exam should not preclude additional follow-up of suspicious palpable abnormalities. Electronically signed and approved by: Dariel Rivas M.D. Radiologist
== END | disposition home or self-care (01) ==
LOC: RADMAMWWP 13:10
PROVIDERS: ATTEND Family Medicine
DX: Z12.31 Encounter for screening mammogram for malignant neoplasm of breast (principal); Z78.0 Asymptomatic menopausal state; Z80.3 Family history of malignant neoplasm of breast
CPT/HCPCS: 77063; 77067

== ENCOUNTER → 2022-06-18 | Outpatient (CLI) | payer MEDICARE ==
--- NOTE | 2022-06-19 10:21 | MR ---
EXAMINATION TYPE: MR brain wo/w con DATE OF EXAM: 06/18/2022 COMPARISON: HISTORY: Lung cancer with metastatic disease. TECHNIQUE: Multiplanar, multisequence images of the brain and brainstem is performed without and with IV contras t, utilizing 6 mL intravenous Gadavist . FINDINGS: Diffusion weighted images demonstrate no evidence of a recent infarct or other diffusion ab normality. There is generalized degenerative change with focal and diffuse areas of abnormal signal in the white matter which are nonspecific but most typical remote white matter ischemia. There is a 6 mm ring enhancing lesion in the superior right parietal lobe. This is new from prior exa m. A smaller adjacent 2 mm ring-enhancing nodule. Best noted axial image 142. This second lesion may be related to vascular structure rather than additional lesion, and is too small to characterize. Fullness to the left cerebral peduncle remains stable without enhancement. No additional areas of def initive nodular enhancement seen to suggest metastasis. Midline structures demonstrate normal morphology. The craniocervical junction appears within normal limits. Post contrast images demonstrate no abnormal enhancement. The dural venous sinuses appear pa tent. Changes of mild chronic sinusitis. Orbits symmetric. IMPRESSION: 1. There is a new 6 x 5 x 5 mm ring-enhancing lesion in the superior right parietal lobe. 2. Stable fullness to the left cerebral peduncle without evidence of enhancement. 3. Degenerative and nonspecific white matter change most typical of remote white matter ischemia.
== END | disposition home or self-care (01) ==
LOC: RADMRIMAIN 10:27
PROVIDERS: ATTEND Radiology Radiation Oncology
DX: C79.31 Secondary malignant neoplasm of brain (principal)
CPT/HCPCS: 70553; A9585

== ENCOUNTER → 2022-08-04 | Outpatient (CLI) | payer MEDICARE ==
--- NOTE | 2022-08-04 12:06 | XR ---
EXAMINATION TYPE: XR chest 2V, XR sternum 2 views DATE OF EXAM: 08/04/2022 COMPARISON: Correlation PET/CT 05/22/2022 HISTORY: 86-year-old female R07.82, intercostal pain, left lower rib pain after a fall. FINDINGS: CHEST: Heart upper limits of normal in size atherosclerotic arch calcifications. Mild patchy bibasilar opaci ties. A 1 cm density projecting at the right upper lobe. Partially visualized posterior lumbar fusion hardware. No pleural effusion. Sternum: Right anterior chest wall injection port with catheter tip at the lower SVC. The lateral view, the in jection port projects over the upper third sternal body. Superimposition limits the assessment. No ob vious angulated or depressed sternal abnormality is seen. IMPRESSION: 1. Chest: Mild patchy densities in the lower lungs probably areas of atelectasis. Follow-up if concer n for early infiltrates. 2. Chest: A 1 cm nodular density projecting at the right upper lobe. Appropriate oncologic follow-up/ evaluation recommended. 3. Sternum: The right-sided injection port projects over the upper third sternal body. Overall limite d due to superimposition. No obvious depressed or angulated sternal abnormality is seen.
== END | disposition home or self-care (01) ==
LOC: RADXRMAIN 10:51
PROVIDERS: ATTEND Registered Nurse
DX: R91.8 Other nonspecific abnormal finding of lung field (principal)
CPT/HCPCS: 71046; 71120

== ENCOUNTER → 2022-09-04 | Outpatient (CLI) | payer MEDICARE ==
--- NOTE | 2022-09-07 07:36 | PE ---
EXAMINATION TYPE: PET CT fusion skull to thigh DATE OF EXAM: 09/04/2022 COMPARISON: Most recent PET CT May 22, 2022 and older studies HISTORY: Left lower Lung cancer progress study. Originally diagnosed November 2020, completed chemot herapy 8 months ago per patient. TECHNIQUE: Following the intravenous administration of 10.87 mCi of F-18 FDG, whole body images are performed from the skull base to the midthigh. Images are reviewed on the computer in the coronal, a xial, and sagittal planes. Reconstructed rotating images are created on independent workstation and reviewed on the computer. A localization and attenuation correction CT is performed in conjunction with the PET scan. Blood glucose level equals 103. SCAN: Subsequent Scan FINDINGS: SKULL BASE AND NECK: No new areas of abnormal hypermetabolic uptake CHEST, MEDIASTINUM, AND HILAR REGION: Mild to moderate underlying emphysematous change is redemonstra francisco. Stable mild to moderate parenchymal scarring and/or atelectasis posteriorly bilaterally redemons trated. Slightly more prominent or enlarging anterior 10-12 mm peripheral right upper lung nodule axi al image 61 current study remains ametabolic. (Max SUV less than 2.5) New prominent minimally hypermetabolic right axillary lymph node measuring 1.5 x 1.0 cm axial image 6 9, max SUV is 2.16. ABDOMEN AND PELVIS: Normal excretion. No new adrenal masses. Nonspecific bowel uptake throughout the lower abdomen and pelvis with focal more prominent uptake near level of surgical sutures mid to lower abdomen just right of midline is redemonstrated and should be correlated clinically. Overall bowel u ptake is less prominent from most recent prior. No definitive new abnormal hypermetabolic uptake othe rwise seen. OSSEOUS STRUCTURES: No definitive new areas of abnormal hypermetabolic uptake. Mild uptake at level o f left shoulder joint is redemonstrated and may reflect inflammatory etiology. OTHER CT: Stable right internal jugular Mediport catheter. Persistent cardiomegaly with enlarged pulm onary arteries consistent with underlying pulmonary artery hypertension. At least moderate coronary a rtery calcification is redemonstrated. Ascending aorta measures up to 4.1 cm in diameter on current s tudy axial image 83. Distended gallbladder with dependent density favoring gallbladder sludge redemonstrated. Surgical nichole nges from partial proximal colectomy redemonstrated. Marked diverticulosis in the left and sigmoid co sabine redemonstrated. Uterus surgically absent. Decompressed bladder. Stable small sized ventral wall h ernia axial image 155 is redemonstrated. Surgical coils right groin level from inguinal hernia repair surgery are redemonstrated. Postsurgical change to lower lumbar spine redemonstrated. IMPRESSION: 1. Slightly more prominent or enlarging anterior right upper lung nodule should be closely followed, consider repeat CT and/or PET CT in 3-6 months time to reassess. 2. Nonspecific right axillary lymph node could reflect infectious or inflammatory etiology. Correlate for recent RUE administered COVID vaccine or booster. Consider ultrasound and/or PET CT follow-up in 3 months time to reassess.
== END | disposition home or self-care (01) ==
LOC: RADPETMAIN 10:59
PROVIDERS: ATTEND Internal Medicine Hematology & Oncology
DX: C34.11 Malignant neoplasm of upper lobe, right bronchus or lung (principal)
CPT/HCPCS: 78815; A9552

== ENCOUNTER → 2022-09-14 | Outpatient (CLI) | payer MEDICARE ==
--- NOTE | 2022-09-14 16:17 | MR ---
EXAMINATION TYPE: MR brain wo/w con DATE OF EXAM: 09/14/2022 COMPARISON: Most recent brain MRI June 18, 2022 HISTORY: Lung cancer with brain mets. Post radiation treatment comparison to prior MRI 06-18-22. TECHNIQUE: Multiplanar, multisequence images of the brain and brainstem is performed without and with IV contras t, utilizing 7 mL intravenous Gadavist . FINDINGS: Mild ventricular and sulcal prominence redemonstrated. Scattered foci of T2 hyperintensity are again seen throughout the superficial, deep, and periventricular white matter. Small areas of blo od product referenced right superior cerebellar peduncle axial image 173 and left posterior inferior basal ganglia image 253 along with high right parietal lobe image 2497 likely correspond to areas of active or treated metastatic disease. Midline structures redemonstrate normal morphology. The craniocervical junction remains within prisca l limits. There is 4 mm ring-enhancing lesion high right parietal lobe axial image 135 diminished in size from 6 mm most recent prior study. No definitive new enhancing masses. Globes are intact and visualized si nuses are clear. IMPRESSION: Partial positive treatment response to the high right parietal metastatic lesion. No new enhancing masses or metastatic lesions identified. Mild diffuse cerebral atrophy and moderate chronic small vessel ischemic change redemonstrated.
== END | disposition home or self-care (01) ==
LOC: RADMRIMAIN 12:48
PROVIDERS: ATTEND Radiology Radiation Oncology
DX: C79.31 Secondary malignant neoplasm of brain (principal); C77.0 Secondary and unspecified malignant neoplasm of lymph nodes of head, face and neck; C34.11 Malignant neoplasm of upper lobe, right bronchus or lung; I67.82 Cerebral ischemia; G31.9 Degenerative disease of nervous system, unspecified; Z92.3 Personal history of irradiation
CPT/HCPCS: 70553; A9585

== ENCOUNTER → 2022-10-05 | Outpatient (CLI) | payer MEDICARE ==
--- NOTE | 2022-10-05 14:42 | US ---
EXAMINATION TYPE: US venous doppler duplex LE LT DATE OF EXAM: 10/05/2022 2:31 PM COMPARISON: prev US in PACS CLINICAL HISTORY: M79.662 PAIN LLE R22.42 SWELLING. left leg pain and intermittent swelling SIDE PERFORMED: left TECHNIQUE: The lower extremity deep venous system is examined utilizing real time linear array sonog torin with graded compression, doppler sonography and color-flow sonography. VESSELS IMAGED: Common Femoral Vein Deep Femoral Vein Greater Saphenous Vein * Femoral Vein Popliteal Vein Small Saphenous Vein * Proximal Calf Veins (* superficial vessels) Left Leg: neg for LLE dvt; 5.6 x 2.1 x 2.3cm complex left pop cyst Left msg of results for Vicky at office. Patient sent home. IMPRESSION: 1. Left lower extremity ultrasound negative for deep venous thrombosis. 2. Left popliteal complex cyst.
== END | disposition home or self-care (01) ==
LOC: RADUSWWP 14:13
PROVIDERS: ATTEND Internal Medicine Hematology & Oncology
DX: R22.42 Localized swelling, mass and lump, left lower limb (principal); M71.22 Synovial cyst of popliteal space [Baker], left knee; M79.662 Pain in left lower leg

== ENCOUNTER → 2022-10-07 | Outpatient (CLI) | payer MEDICARE ==
--- NOTE | 2022-10-07 15:12 | XR ---
EXAMINATION TYPE: XR knee limited LT DATE OF EXAM: 10/07/2022 COMPARISON: NONE HISTORY: 86-year-old female M25.562, Pain left knee TECHNIQUE: 2 views FINDINGS: There is tricompartmental degenerative spurring. Meniscal chondrocalcinosis. There may be e xtrusion to the calcified body of the medial meniscus. Small knee joint effusion. Extensor mechanism appears intact. No acute fracture seen. Limited 2 views. IMPRESSION: 1. Limited 2 views. 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 Meniscal chondrocalcinosis and small kn ee joint effusion may be seen with CPPD. 2. Unable to exclude an underlying extruded tear of the medial meniscus.
== END | disposition home or self-care (01) ==
LOC: RADXRMAIN 13:45
PROVIDERS: ATTEND Nurse Practitioner Family
DX: M17.12 Unilateral primary osteoarthritis, left knee (principal)

== ENCOUNTER → 2022-11-20 | Outpatient (CLI) | payer MEDICARE ==
--- NOTE | 2022-11-22 13:23 | PE ---
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 Images are reviewed on the computer in the coronal, axial, and sagittal planes. Reconstructed rotating images are created on independent workstation and reviewed on the computer. A non-contrast CT is performed in conjunction with the PET scan. Glucose level 103 mg/dL COMPARISON: CT None, PET/CT 09/04/2022 ,05/22/2022 , 11/28/2021. FINDINGS: Mediastinal SUV mean is 1.8 . Hepatic parenchyma SUV mean is 2.3. SKULL BASE AND NECK: No suspicious radiotracer activity. CHEST, MEDIASTINUM, AND HILAR REGION: * Similar size of right upper lobe pulmonary nodule measuring 9 mm with increased FDG activity max S UV 2.2 previously 1.5. This has minimally increased in size from 11/28/2021 where it measured 7 mm. * Right axillary lymph node with increased radiotracer activity measuring 7 mm in short axis max SUV 3.2, previously 2.2. * Right subpectoralis 6 mm lymph node with increased radiotracer activity max SUV 1.6, previously 1. 2 ABDOMEN AND PELVIS: * Masslike area of increased or tracer activity within the sigmoid colons series 3 image 181 measuri ng 2.7 x 2.0 cm Max SUV 8.7 previously 10.8. Additionally this focal area uptake is seen on PET/CT on 05/22/2022 OSSEOUS STRUCTURES: No suspicious radiotracer activity. OTHER CT: Bilateral aphakia atherosclerosis of the arterial vasculature including the coronary arteri es. Right chest wall Naxxfm-i-Nxfp with distal tip terminating in the superior vena cava. Heart is mi ldly enlarged for size. Fat-containing umbilical hernia scattered clonic diverticulosis with redundan t sigmoid colon. IMPRESSION: 1. Similar size of right upper lobe pulmonary nodule compared to immediate prior however it doesn't have increasing metabolic activity. Additionally increasing activity within the right axillary lymph node and right subpectoralis lymph node. Findings concerning for malignancy. 2. Masslike area within the sigmoid colon with increased FDG activity concerning for for malignancy. Consider direct visualization if not recently performed. This area is a similar morphology to 2021 , 05/22/2022 and 11/28/2021.
== END | disposition home or self-care (01) ==
LOC: RADPETMAIN 09:14
PROVIDERS: ATTEND Internal Medicine Hematology & Oncology
DX: C34.11 Malignant neoplasm of upper lobe, right bronchus or lung (principal); R91.1 Solitary pulmonary nodule; R59.0 Localized enlarged lymph nodes
CPT/HCPCS: 78815; A9552

== ENCOUNTER → 2023-02-26 | Outpatient (CLI) | payer MEDICARE ==
--- NOTE | 2023-02-28 10:26 | PE ---
EXAMINATION TYPE: PET CT fusion skull to thigh DATE OF EXAM: 02/26/2023 CLINICAL INDICATION:Female, 87 years old with history of C34.11 lung ca; TECHNIQUE: Following the intravenous administration of 13.1 mCi of F-18 FDG, whole body images are performed from the skull base to the midthigh. Images are reviewed on the computer in the coronal, a xial, and sagittal planes. Reconstructed rotating images are created on independent workstation and reviewed on the computer. A non-contrast CT is performed in conjunction with the PET scan. Glucose level 120 mg/dL COMPARISON: CT None, PET/CT most recent 11/20/2022, FINDINGS: SKULL BASE AND NECK: * Left supraclavicular lymph node measuring 7 mm in short axis, previously 5 mm in short axis max GUALLPA V 1.6, previously 0.7 CHEST, MEDIASTINUM, AND HILAR REGION: * Fractionally larger right upper lobe pulmonary nodule measuring 12 mm, previously 9 mm with increa sed FDG activity max SUV 3.0, previously 2.2 and 1.5. * Right axillary lymph node with increased radiotracer and size activity measuring 14 mm in short ax is max SUV 4.8, previously 3.2, 2.2. * Right subpectoralis 6 mm lymph node with similar radiotracer activity max SUV 1.6, previously 1.6, 1.2 ABDOMEN AND PELVIS: * Masslike area of increased or tracer activity within the sigmoid colons series 3 image 181 measuri ng 2.7 x 2.0 cm Max SUV 9.0, previously 8.7, 10.8. * Masslike uptake within the colon near the anastomotic site max SUV 6.8, previously 7.1 OSSEOUS STRUCTURES: No suspicious radiotracer activity. OTHER CT: Bilateral aphakia atherosclerosis of the arterial vasculature including the coronary arteri es. Right chest wall [id number]-[id number] with distal tip terminating in the superior vena cava. Heart is mi ldly enlarged for size. Fat-containing umbilical hernia scattered clonic diverticulosis with redundan t sigmoid colon. Gallbladder is distended with layering gallstones. Fixation hardware of the lower guy mbar spine hardware appears intact. Hernia repair changes with anchors in the right low suprapubic re gion. IMPRESSION: 1. Increase in size and metabolic activity of the right upper lung pulmonary nodule, right axillary lymph node, a new left clavicular lymph node increasing FDG activity compatible with metastatic disea se. 2. Masslike area within the sigmoid colon and at the anastomotic site of the mid abdomen with simila r FDG activity however still concerning for malignancy.
== END | disposition home or self-care (01) ==
LOC: RADPETMAIN 10:22
PROVIDERS: ATTEND Internal Medicine Hematology & Oncology
DX: C34.11 Malignant neoplasm of upper lobe, right bronchus or lung (principal); R91.1 Solitary pulmonary nodule
CPT/HCPCS: 78815; A9552

== ENCOUNTER → 2023-03-10 | Outpatient (CLI) | payer MEDICARE ==
--- NOTE | 2023-03-10 12:19 | CA ---
Transthoracic Echo Report Name: Mery Mendieta Age: 87 Gender: F : 1935 Exam Date: 03/10/2023 10:10 Exam Location: [place] [place] [facility] Ht (in): 61 Wt (lb): 147 Ordering Physician: Ryan Carlton MD Attending/Referring Phys: Die Designer Makenzie Yadav RDCS Procedure CPT: Indications: Z01.818 Chemo exposure Cardiac Hx: Technical Quality: Good Contrast 1: Total Dose (mL): Contrast 2: Total Dose (mL): MEASUREMENTS (Male / Female) Normal Values 2D ECHO LV Diastolic Diameter PLAX 4.8 cm 4.2 - 5.9 / 3.9 - 5.3 cm LV Systolic Diameter PLAX 3.4 cm IVS Diastolic Thickness 1.4 cm 0.6 - 1.0 / 0.6 - 0.9 cm LVPW Diastolic Thickness 1.5 cm 0.6 - 1.0 / 0.6 - 0.9 cm LV Relative Wall Thickness 0.6 RV Internal Dim ED PLAX 2.9 cm LA Systolic Diameter LX 4.0 cm 3.0 - 4.0 / 2.7 - 3.8 cm LV Diastolic Volume MOD 4C 84.5 cm??? LV Systolic Volume MOD 4C 37.8 cm??? LV Ejection Fraction MOD 4C 55.3 % LV Diastolic Length 4C 7.6 cm LV Systolic Length 4C 6.1 cm LV Diastolic Volume MOD 2C 65.2 cm??? LV Systolic Volume MOD 2C 30.9 cm??? LV Ejection Fraction MOD 2C 52.7 % LV Diastolic Length 2C 7.1 cm LV Systolic Length 2C 5.8 cm LA Volume 66.6 cm??? 18 - 58 / 22 - 52 cm??? M-MODE Aortic Root Diameter MM 3.3 cm MV E Point Septal Separation 0.9 cm AV Cusp Separation MM 1.9 cm DOPPLER AV Peak Velocity 185.5 cm/s AV Peak Gradient 13.8 mmHg AV Mean Velocity 111.0 cm/s AV Mean Gradient 5.9 mmHg AV Velocity Time Integral 37.4 cm MV Area PHT 2.7 cm??? Mitral E Point Velocity 79.9 cm/s Mitral A Point Velocity 96.6 cm/s Mitral E to A Ratio 0.8 MV Deceleration Time 279.9 ms MV E' Velocity 6.7 cm/s Mitral E to MV E' Ratio 12.0 TR Peak Velocity 317.1 cm/s TR Peak Gradient 40.2 mmHg Right Ventricular Systolic Press 44.8 mmHg FINDINGS Left Ventricle Left ventricular ejection fraction is estimated at 55-60 %. Left ventricular cavity size normal. Moderate concentric left ventricular hypertrophy. Right Ventricle Normal right ventricular size and function. Moderate pulmonary hypertension. Right ventricular systolic pressure estimated at 45 mm hg. Right Atrium Normal right atrial size. Left Atrium Mildly increased left atrial diameter. Moderately increased left atrial volume. Mitral Valve Mitral valve thickened. Mild mitral regurgitation. Aortic Valve Trileaflet aortic valve. No aortic valve stenosis or regurgitation. Aortic valve sclerosis. Tricuspid Valve Structurally normal tricuspid valve. Mild tricuspid regurgitation. Pulmonic Valve Structurally normal pulmonic valve. Trace pulmonic regurgitation. Pericardium Normal pericardium. No pericardial effusion. Aorta Normal size aortic root and proximal ascending aorta. CONCLUSIONS 1. Normal left ventricle size and systolic function 2. Mild mitral and tricuspid regurgitation Previewed by: Dr. Summer Jolly MD (Electronically Signed) Final Date: 10 Mar 2023 12:19
== END | disposition home or self-care (01) ==
LOC: RADECHMAIN 09:33
PROVIDERS: ATTEND Internal Medicine Hematology & Oncology
DX: Z01.818 Encounter for other preprocedural examination (principal); I08.1 Rheumatic disorders of both mitral and tricuspid valves
CPT/HCPCS: 93306

== ENCOUNTER 2023-03-19 12:05 | Day surgery (SDC) | payer MEDICARE ==
[2023-03-19 12:56] VITALS: RESP 18; TEMP 97.7
--- NOTE | 2023-03-19 14:25 | CT ---
EXAMINATION TYPE: CT biopsy lymph node DATE OF EXAM: 03/19/2023 COMPARISON: NONE HISTORY: Right axillary lymph node enlargement CT DLP: 425mGycm The procedure was explained to the patient. The risks, complications, benefits, and alternatives wer e discussed and any questions were answered. Informed consent was obtained. Patient was placed righ t lateral on the CT table and prepped and draped in the usual sterile fashion. All elements of maximal barrier and sterile technique utilized. CT demonstrated that the lymph node along the right lateral chest wall was not seen in the same locat ion on today's examination and may have migrated anteriorly. The biopsy was to be performed in ultras ound. IMPRESSION: 1. CT biopsy moved ultrasound as discussed above..
--- NOTE | 2023-03-19 14:45 | US ---
ULTRASOUND GUIDED CORE BIOPSY RIGHT AXILLA LYMPH NODE: CLINICAL HISTORY: Right axilla lymphadenopathy positive by PET scan FINDINGS: The procedure was explained to the patient. The risks, complications, benefits and alternatives were discussed and any questions were answered. Informed consent was obtained. Patient was placed supin e on the ultrasound table and prepped and draped in the usual sterile fashion. Utilizing a 18-gauge core biopsy needle, three passes were made into the requested right axillary lymph node. Patient was stable throughout the procedure. Pathology is pending. All elements of maximal barrier technique were utilized. IMPRESSION: 1. Successful ultrasound guided biopsy right axillary lymph node.
[2023-03-19 15:10] VITALS: BP 130/66; PULSE 74
== END 2023-03-19 15:00 | disposition home or self-care (01) ==
LOC: RADPROMAIN 12:05
PROVIDERS: ATTEND Internal Medicine Hematology & Oncology
DX: R59.0 Localized enlarged lymph nodes (principal)
CPT/HCPCS: 38505; 76942; 77012; 88305; 88341; 88342

== ENCOUNTER → 2023-03-29 | Outpatient (CLI) | payer MEDICARE ==
--- NOTE | 2023-03-29 16:12 | MR ---
EXAMINATION TYPE: MR brain wo/w con DATE OF EXAM: 03/29/2023 COMPARISON: 12/28/2022, 09/14/2022 HISTORY: 87-year-old female C79.31, secondary Malignant neoplasm of brain TECHNIQUE: Multiplanar, multisequence images of the brain and brainstem were acquired before and aft er administration of 6.5 mL IV Gadavist. Diffusion weighted imaging is performed. FINDINGS: Mild generalized supratentorial volume loss. Secondary mild prominence of the ventricular system. No evidence for acute infarction, mass effect, midline shift, herniation, effacement of basal cistern s, or extra-axial fluid collection. There is a new 8 mm enhancing nodule anterior left paramedian frontal cortex. In retrospect, there ma y have been a punctate 3 mm focus of enhancement here. No additional suspicious enhancing lesions are identified Dominant left vertebral artery. Major intracranial flow voids are intact. T2/FLAIR weighted sequences show moderate scattered and patchy burden of right white matter change in the periventricular and deep white matter regions of both hemispheres. Midline structures demonstrate normal morphology. The craniocervical junction is normal. Dural venous sinuses are patent. Trace mucosal thickening ethmoid air cells. Globes are intact. IMPRESSION: 1. A new 8 mm intracranial metastasis to the anterior left paramedian frontal cortex. No other suspic ious enhancing lesion seen. 2. Mild cerebral atrophy and moderate burden of chronic small vessel ischemic disease.
== END | disposition home or self-care (01) ==
LOC: RADMRIMAIN 10:22
PROVIDERS: ATTEND Radiology Radiation Oncology
DX: C79.31 Secondary malignant neoplasm of brain (principal); G31.9 Degenerative disease of nervous system, unspecified; I67.82 Cerebral ischemia
CPT/HCPCS: 70553; A9585

== ENCOUNTER 2023-05-21 11:10 | Emergency (ER) | payer MEDICARE ==
[2023-05-21 11:16] VITALS: TEMP 98.4
--- NOTE | 2023-05-21 11:44 | ED ---
General Adult HPI - General Chief complaint: Abdominal Pain Stated complaint: poss GI bleed Time Seen by Provider: 05/21/23 11:18 Source: patient, RN notes reviewed, old records reviewed Mode of arrival: ambulatory Limitations: no limitations - History of Present Illness Initial comments: 87-year-old female presenting for evaluation of mass felt in her rectum with bleeding. Patient states she has been constipated and has not had a normal bowel movement in at least one week. He denies significant abdominal pain but states she does constipated. She had noticed a bulge in her rectum which she states her daughter was able to reduce. She states she has been straining to have a bowel movement over the past one week. Patient reports a small amount of blood noted on the rectum itself. Patient is currently being treated for metastatic lung cancer with metastases to the brain she's undergone chemo and radiation treatment. No fevers. - Related Data Home Medications Medication Instructions Recorded Confirmed Cyclobenzaprine [Flexeril] 10 mg PO HS 02/19/21 03/08/23 Meclizine HCl 25 mg PO DAILY 02/19/21 03/08/23 Pravastatin Sodium [Pravachol] 40 mg PO HS 02/19/21 03/08/23 Fluticasone/Umeclidin/Vilanter 1 inhalation INHALATION DAILY 04/30/21 03/08/23 [Trelegy Ellipta 100-62.5-25] Amiodarone [Cordarone] 200 mg PO DAILY 10/15/21 03/08/23 Celecoxib [CeleBREX] 200 mg PO DAILY 10/15/21 03/08/23 Cholecalciferol (Vitamin D3) 125 mcg PO DAILY 10/15/21 03/08/23 [Vitamin D3 (125 MCG = 5,000 IU)] Cyanocobalamin (Vitamin B-12) 1,000 mcg PO DAILY 10/15/21 03/08/23 [Vitamin B-12] DULoxetine HCL [Cymbalta] 30 mg PO BID 10/15/21 03/08/23 Levothyroxine Sodium [Synthroid] 150 mcg PO QAM 10/15/21 03/08/23 Lisinopril-Hctz 10-12.5 mg 1 tab PO DAILY 10/15/21 03/08/23 [Zestoretic 10-12.5] Potassium Chloride [Klor-Con 10 ER] 10 meq PO QAM 10/15/21 03/08/23 amLODIPine [Norvasc] 5 mg PO QAM 10/15/21 03/08/23 Previous Rx's Medication Instructions Recorded Docusate [Colace] 100 mg PO BID #60 capsule 05/21/23 polyethylene glycoL 3350 [Miralax] 17 gm PO DAILY #527 gm 05/21/23 Allergies Allergy/AdvReac Type Severity Reaction Status Date / Time No Known Allergies Allergy Verified 05/21/23 11:16 Review of Systems ROS Statement: Those systems with pertinent positive or pertinent negative responses have been documented in the HPI. ROS Other: All systems not noted in ROS Statement are negative. Past Medical History Past Medical History: Atrial Fibrillation, Cancer, COPD, Hyperlipidemia, Hyperte nsion, Pneumonia Additional Past Medical History / Comment(s): COVID-11/2020-"long hauler symptoms", COLON CANCER 2001. 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, anemia-getting iron infusions, UTI's History of Any Multi-Drug Resistant Organisms: None Reported Past Surgical History: Back Surgery, Bowel Resection, Cardiac Ablation, Hysterectomy, Orthopedic Surgery Additional Past Surgical History / Comment(s): Bunion surg, spinal fusion, thyroidectomy, kristina hand surgery, Past Anesthesia/Blood Transfusion Reactions: Motion Sickness Additional Past Anesthesia/Blood Transfusion Reaction / Comment(s): vertigo, Past Psychological History: Anxiety Smoking Status: Former smoker Past Alcohol Use History: Rare Past Drug Use History: None Reported - Past Family History Mother Family Medical History: Myocardial Infarction ([place]) Father Family Medical History: Diabetes Mellitus Brother(s) Family Medical History: Cancer Additional Family Medical History / Comment(s): bladder cancer,lung General Exam Limitations: no limitations General appearance: alert, in no apparent distress Head exam: Present: atraumatic, normocephalic Eye exam: Present: normal appearance, PERRL ENT exam: Present: normal exam Neck exam: Present: normal inspection. Absent: tenderness, meningismus Respiratory exam: Present: normal lung sounds bilaterally. Absent: respiratory distress, wheezes Cardiovascular Exam: Present: regular rate, normal rhythm GI/Abdominal exam: Present: soft, distended. Absent: tenderness, guarding, rebound Rectal exam: Present: other (Slight rectal prolapse on standing). Absent: hemorrhoids (No external hemorrhoids) Extremities exam: Present: normal inspection Back exam: Present: normal inspection Neurological exam: Present: alert, oriented X3 Psychiatric exam: Present: normal affect, normal mood Skin exam: Present: warm, dry, intact Course Vital Signs 05/21/23 11:11 Temperature 98.4 F Pulse Rate 99 Respiratory 20 Rate Blood Pressure 135/72 O2 Sat by Pulse 97 Oximetry Medical Decision Making - Medical Decision Making Was pt. sent in by a medical professional or institution (, PA, EXCEL SPECIALIST, urgent care, hospital, or prison...) When possible be specific @ -No Did you speak to anyone other than the patient for history (EMS, parent, family, police, friend...)? What history was obtained from this source @ Patient's daughter is at bedside and was given detailed history Did you review nursing and triage notes (agree or disagree)? Why? @ -I reviewed and agree with nursing and triage notes Were old charts reviewed (outside hosp., previous admission, EMS record, old EKG, old radiological studies, urgent care reports/EKG's, prison records)? Report findings @ -No old charts were reviewed Differential Diagnosis (chest pain, altered mental status, abdominal pain women, abdominal pain men, vaginal bleeding, weakness, fever, dyspnea, syncope, headache, dizziness, GI bleed, back pain, seizure, CVA, palpatations, mental health, musculoskeletal)? @ -[Internal hemorrhoid, external hemorrhoid, rectal prolapse, Differential GI Bleed: Esophageal varices, aortoenteric fistula, Albertina-Rodriguez, gastritis, peptic ulcer disease, diverticulosis, inflammatory bowel disease, hemorrhoids, fissure, colitis, malignancy, Meckels diverticulum, this is not meant to be an all- inclusive list. EKG interpreted by me (3pts min.). @ -As above X-rays interpreted by me (1pt min.). @ -[KUB reveals some large stool burden within the rectum, no obstruction CT interpreted by me (1pt min.). @ -None done U/S interpreted by me (1pt. min.). @ -None done What testing was considered but not performed or refused? (CT, X-rays, U/S, labs)? Why? @ -None What meds were considered but not given or refused? Why? @ -None Did you discuss the management of the patient with other professionals (professionals i.e. DrLázaro, PA, EXCEL SPECIALIST, lab, RT, psych nurse, clinical social work therapist, cork painter and grader, teacher, air intelligence officer, case investigator)? Give summary @ -No Was smoking cessation discussed for >3mins.? @ -No Was critical care preformed (if so, how long)? @ -No Were there social determinants of health that impacted care today? How? (Homeles sness, low income, unemployed, alcoholism, drug addiction, transportation, low edu. Level, literacy, decrease access to med. care, residential, rehab)? @ -No Was there de-escalation of care discussed even if they declined (Discuss DNR or withdrawal of care, Hospice)? DNR status @ -No What co-morbidities impacted this encounter? (DM, HTN, Smoking, COPD, CAD, Cancer, CVA, ARF, Chemo, Hep., AIDS, mental health diagnosis, sleep apnea, morbid obesity)? @Metastatic lung cancer Was patient admitted / discharged? Hospital course, mention meds given and route, prescriptions, significant lab abnormalities, going to OR and other pertinent info. @87-year-old female with rectal prolapse and constipation. No abdominal tenderness on exam. Stable vitals. She has a minor rectal prolapse on standing which is easily reduced with laying. X-ray does reveal significant amount cons tipation, and it was administered in the emergency department. She will take Colace and MiraLAX and follow closely with her primary care physician. Undiagnosed new problem with uncertain prognosis? @ -No Drug Therapy requiring intensive monitoring for toxicity (Heparin, Nitro, Insulin, Cardizem)? @ -No Were any procedures done? @ -No Diagnosis/symptom? @Rectal prolapse Acute, or Chronic, or Acute on Chronic? @ -Acute Uncomplicated (without systemic symptoms) or Complicated (systemic symptoms)? @ -default Side effects of treatment? @ -No Exacerbation, Progression, or Severe Exacerbation? @ -No Poses a threat to life or bodily function? How? (Chest pain, [place], [place], pneumonia, PE, COPD, DKA, ARF, appy, cholecystitis, CVA, Diverticulitis, Homicidal, Suicidal, threat to staff... and all critical care pts) @ -No Disposition Clinical Impression: Constipation, Rectal prolapse Disposition: HOME SELF-CARE Condition: Fair Instructions (If sedation given, give patient instructions): Constipation (ED), Rectal Prolapse (ED) Prescriptions: Docusate [Colace] 100 mg PO BID #60 capsule polyethylene glycoL 3350 [Miralax] 17 gm PO DAILY #527 gm Is patient prescribed a controlled substance at d/c from ED?: No Referrals: Daphnie Burrows MD [Primary Care Provider] - 1-2 days Time of Disposition: 12:11
--- NOTE | 2023-05-21 12:00 | XR ---
EXAMINATION TYPE: XR KUB DATE OF EXAM: 05/21/2023 Comparison: None Clinical History: 87-year-old female constipation Findings: L3-L5 posterior and interbody fusion. No evidence for free intraperitoneal air. There appears to be a large amount of stool within the pelvis and [id number]-[id number] within the left si de of the abdomen. No dilated small bowel or differential air-fluid levels are seen. Coils at the rig ht inguinal region from prior mesh repair. Impression: 1. Large amount of stool in the pelvis. There could be some fecal impaction. Only mild to moderate st ool in the left side of the abdomen. 2. Overall nonobstructive bowel gas pattern. No free air.
[2023-05-21] MEDS ORDERED: NA PHOS,M-B/NA PHOS,DI-BA 133 ML ENEMA RECTAL STA (12:22)
[2023-05-21 13:54] VITALS: BP 116/70; PULSE 70; RESP 18
== END 2023-05-21 13:54 | disposition home or self-care (01) ==
LOC: EC 11:10
DX: K62.3 Rectal prolapse (principal); E78.5 Hyperlipidemia, unspecified; F41.9 Anxiety disorder, unspecified; I10 Essential (primary) hypertension; I48.91 Unspecified atrial fibrillation; J44.9 Chronic obstructive pulmonary disease, unspecified; Z79.1 Long term (current) use of non-steroidal anti-inflammatories (NSAID); Z79.899 Other long term (current) drug therapy; Z87.891 Personal history of nicotine dependence; Z86.16 Personal history of COVID-19
CPT/HCPCS: 74018; 99284

== ENCOUNTER → 2023-05-24 | Outpatient (CLI) | payer MEDICARE ==
--- NOTE | 2023-05-24 12:54 | XR ---
EXAMINATION TYPE: XR chest 2V DATE OF EXAM: 05/24/2023 COMPARISON: 08/04/2022 TECHNIQUE: PA and lateral views submitted. HISTORY: Lung cancer FINDINGS: The lungs are clear and there is no pneumothorax, pleural effusion, or focal pneumonia. Heart size normal and no overt failure. Osseous structures demonstrate hypertrophic and degenerative changes of the spine. The heart is enlarged and there is diffuse emphysematous changes. Atherosclerotic changes aorta with ectasia. 1 cm suspicious mass right upper lobe. Postsurgical change involving the lower IMPRESSION: 1. No acute process. 2. Suspicious 1 cm nodule\mass right upper lobe similar to prior exam. 3. Emphysema. Correlate for pulmonary arterial hypertension.
== END | disposition home or self-care (01) ==
LOC: RADXRMAIN 12:10
PROVIDERS: ATTEND Family Medicine
DX: C34.90 Malignant neoplasm of unspecified part of unspecified bronchus or lung (principal); J43.9 Emphysema, unspecified
CPT/HCPCS: 71046

== ENCOUNTER → 2023-06-11 | Outpatient (CLI) | payer MEDICARE ==
[2023-06-11 11:05] LABS: African American GFR (CKD) >90 (>60 ml/min/1.73 sqM); Blood Urea Nitrogen 25 mg/dL (7-17); Non-African American GFR(CKD) 82 (>60 ml/min/1.73 sqM)
--- NOTE | 2023-06-12 21:21 | CT ---
EXAMINATION TYPE: CT chest w con DATE OF EXAM: 06/11/2023 COMPARISON: 12/31/2020, PET CT 02/26/2023, 11/20/2022 HISTORY: 87-year-old female C3 4.11, FOLLOW UP LUNG CA TECHNIQUE: Contiguous axial scanning of the chest after the administration of 100 mL of Isovue 300. Coronal/sagittal reconstructions performed. CT DLP: 271.8mGycm. Automatic exposure control utilized for a dose reduction. FINDINGS: Heart borderline in size. No pericardial effusion. LAD and RCA coronary calcifications are present in remarkable for coronary artery disease. Similar ectatic ascending aorta at 3.8 cm. Mild atherosclerotic calcification. Endovaginal). Large-caliber right pulmonary arteries measuring up. Right anterior to the lower SVC. Right axillary lymph node has decreased in size currently 9 mm versus 1.4 cm, previously. Mild emphysematous changes with pleural parenchymal scarring in the mid and lower lungs redemonstrate d. The subpleural anterior right upper lobe pulmonary nodule currently measures 1.3 cm and is unchang ed from 02/26/2023. No consolidation or pleural effusion. Visualized upper abdomen shows partially visualized cyst from the anterior right kidney and moderate stool. Some partially visualized left-sided colonic diverticulosis. Unchanged sclerotic focus within the left T12 pedicle. Moderate to advanced degenerative disc disease lower lumbar spine with posterior fusion hardware part ially visualized lower lumbar spine. Moderate degenerative disc disease midthoracic spine. IMPRESSION: 1. Stable 1.3 cm lung cancer anterior right upper lobe. 2. The previous hypermetabolic 1.4 cm right axillary lymph node has decreased in size, now measuring 9 mm. There is otherwise no disease progression seen. 3. Unchanged sclerotic focus within the left T12 pedicle.
== END | disposition home or self-care (01) ==
LOC: RADCTMAIN 10:10
PROVIDERS: ATTEND Internal Medicine Hematology & Oncology
DX: C34.11 Malignant neoplasm of upper lobe, right bronchus or lung (principal); D50.9 Iron deficiency anemia, unspecified; F32.A Depression, unspecified; Z71.3 Dietary counseling and surveillance
CPT/HCPCS: 82565; 84520; 71260; 36415; Q9967

== ENCOUNTER → 2023-06-26 | Outpatient (CLI) | payer MEDICARE ==
--- NOTE | 2023-06-26 13:07 | MR ---
EXAMINATION TYPE: MR brain wo/w con DATE OF EXAM: 06/26/2023 8:30 AM CLINICAL INDICATION:Female, 87 years old with history of C79.31 SECONDARY MALIGNANT NEOPLASM OF BRAIN ; Secondary malignant neoplasm of brain. COMPARISON: MRIs dating back to 09/10/2021 TECHNIQUE: Multi planar, multi sequence imaging was performed through the brain including: T1, T2, In version recovery, susceptibility weighted imaging and gradient echo imaging and Diffusion weighted im aging. The patient was then given intravenous contrast and multi planar, T1 fat-saturation images wer e obtained. IV Contrast: 6.5 cc Gadavist FINDINGS: Decrease in left frontal lobe metastatic focus size, now with peripheral enhancement measuring 6 mm p reviously more diffuse enhancement measuring 8 mm. Focus of restricted diffusion within the right posterior frontal lobe and in area of prior metastatic focus seen on 06/18/2022. No abnormal enhancement present. Area seen prior left basal ganglia remains absent from 12/04/2021. Cerebral atrophy with proportional dilation of ventricular system. There is a small focus of restricted diffusion within the right cerebrum series 03 image 200 and area of prior lesion seen on 1122. Intracranial arterial flow voids are maintained. Midline structures show no abnormality. Scattered fo ci of high T2 signal intensity are seen within the periventricular white matter. Scattered areas of b looming artifact are seen within the left frontal lobe the right frontal lobe and right cerebellum. The bone marrow signal is within normal limits. Paranasal sinuses and mastoid air cells: No significant paranasal sinus disease. Visualized orbits: Bilateral aphakia. IMPRESSION: 1. Positive response to therapy within the left frontal lobe lesion has decreased in size and now de monstrates predominantly peripheral enhancement. There is a small focus of restricted diffusion withi n the right frontal lobe posteriorly where there was a prior lesion on 06/18/2022. Recurrence at this site not entirely excluded. 2. Nonspecific white matter changes, likely related to small vessel ischemic disease
== END | disposition home or self-care (01) ==
LOC: RADMRIMAIN 07:45
PROVIDERS: ATTEND Radiology Radiation Oncology
DX: C79.31 Secondary malignant neoplasm of brain (principal); R90.82 White matter disease, unspecified; G93.89 Other specified disorders of brain
CPT/HCPCS: 70553; A9585

== ENCOUNTER → 2023-07-22 | Outpatient (CLI) | payer MEDICARE ==
--- NOTE | 2023-07-23 22:54 | MM ---
Reason for Exam: Screening (asymptomatic). Last mammogram was performed 1 year(s) and 2 month(s) ago. Patient History: Menarche at age 14. First Full-Term at age 20. Left ovary removed at age 61. Right ovary removed at age 61. Hysterectomy at age 61. Postmenopausal. Colorectal cancer, age 66. Estrogen for 2 years from age 62 until age 64. Progesterone for 2 years from age 62 until age 64. Daughter had breast cancer at or over age 50. Risk Values: Ilana 5 year model risk: 2.4%. NCI Lifetime model risk: 2.4%. Prior Study Comparison: 03/15/2008 Bilateral Screening Mammogram, [facility]. 06/02/2021 Bilateral MG 3D screening mammo w/cad, [facility]. 06/04/2022 Bilateral MG 3D screening mammo w/cad, [facility]. Tissue Density: There are scattered fibroglandular densities. Findings: Analyzed By CAD. Unchanged bilateral benign vascular calcifications. There is no suspicious group of microcalcifications or new suspicious mass in either breast. Overall Assessment: Benign, BI-RAD 2 Management: Screening Mammogram of both breasts. . Patient should continue monthly self-breast exams. A clinical breast exam by your physician is recommended on an annual basis. This exam should not preclude additional follow-up of suspicious palpable abnormalities. Note on Ilana scores and lifetime risk: 1. A Ilana score greater than 3% is considered moderate risk. If this is the case, consider specialist referral to assess eligibility for a risk reducing agent. 2. If overall lifetime risk for the development of breast cancer is 20% or higher, the patient may qualify for future screening with alternating mammogram and breast MRI. Electronically signed and approved by: Dariel Rivas M.D. Radiologist
== END | disposition home or self-care (01) ==
LOC: RADMAMWWP 13:14
PROVIDERS: ATTEND Family Medicine
DX: Z12.31 Encounter for screening mammogram for malignant neoplasm of breast (principal); Z78.0 Asymptomatic menopausal state; Z80.3 Family history of malignant neoplasm of breast
CPT/HCPCS: 77063; 77067

== ENCOUNTER → 2023-08-13 | Outpatient (CLI) | payer MEDICARE ==
--- NOTE | 2023-08-14 08:50 | PE ---
EXAMINATION TYPE: PET CT fusion skull to thigh DATE OF EXAM: 08/13/2023 CLINICAL INDICATION:Female, 87 years old with history of C34.11 MALIGNANT NEOPLASM OF UPPER LOBE, RIG HT BRO; TECHNIQUE: Following the intravenous administration of 10.7 mCi of F-18 FDG, whole body images are performed from the skull base to the midthigh. Images are reviewed on the computer in the coronal, a xial, and sagittal planes. Reconstructed rotating images are created on independent workstation and reviewed on the computer. A non-contrast CT is performed in conjunction with the PET scan. Glucose level 118 mg/dL CT DLP: 371.25 mGycm, Automated exposure control for dose reduction was used. COMPARISON: CT 06/11/2023, 03/19/2023, PET/CT 02/26/2023, FINDINGS: Mediastinal SUV mean is 1.8. Hepatic parenchyma SUV mean is 2.3. FINDINGS: SKULL BASE AND NECK: * Left supraclavicular lymph node measuring 3 mm, previously 7 mm , 5 mm in short axis max SUV 0.7, previously 1.6, 0.7 CHEST, MEDIASTINUM, AND HILAR REGION: * Fractionally smaller right upper lobe pulmonary nodule measuring 11 mm, previously 12 mm, 9 mm wit h decreased FDG activity max SUV 1.6, previously 3.0, 2.2 and 1.5. * Right axillary lymph node has decreased in size measuring 7 mm, previously 14 mm in short axis max SUV 0.9, previously 4.8, 3.2, 2.2. * Right subpectoralis 6 mm lymph node with similar radiotracer activity max SUV 0.9, previously 1.6, r1.6, 1.2 ABDOMEN AND PELVIS: * Masslike area of increased or tracer activity within the sigmoid colons measuring 2.4 x 1.6. Cm Ma x SUV 7.0, previously 9.0, 8.7, 10.8. * Masslike uptake within the colon near the anastomotic site max measuring 2.5 x 2.3 cm previously 4 .1 x 2.6 cm SUV 6.1, previously 6.8, 7.1 OSSEOUS STRUCTURES: Uptake within the left scapula/glenoid is increased SUV 3.[address]: Bilateral aphakia atherosclerosis of the arterial vasculature including the coronary arteri es. Right chest wall [id number] with distal tip terminating in the superior vena cava. Heart is mi ldly enlarged for size. Fat-containing umbilical hernia scattered clonic diverticulosis with redundan t sigmoid colon. Gallbladder is distended with layering gallstones. Fixation hardware of the lower guy mbar spine hardware appears intact. Hernia repair changes with anchors in the right low suprapubic re gion. IMPRESSION: 1. Positive response to therapy with decrease in size and FDG activity of metastatic lesions. 2. Decrease in size of masslike FDG avid consolidation at the anastomotic site as well as mildly dec reased FDG activity. 3. Sigmoid colon soft tissue mass with FDG activity remains similar in size with mildly decreased FD G activity. Findings concerning for another primary site of malignancy. 4. FDG activity within the left glenoid unclear if this on a degenerative basis no obvious CT correl ate.
== END | disposition home or self-care (01) ==
LOC: RADPETMAIN 14:11
PROVIDERS: ATTEND Internal Medicine Hematology & Oncology
DX: C34.11 Malignant neoplasm of upper lobe, right bronchus or lung (principal); K63.89 Other specified diseases of intestine; R93.7 Abnormal findings on diagnostic imaging of other parts of musculoskeletal system
CPT/HCPCS: 78815; A9552

== ENCOUNTER → 2023-10-08 | Outpatient (CLI) | payer MEDICARE ==
--- NOTE | 2023-10-10 21:13 | MR ---
EXAMINATION TYPE: MR brain wo/w con DATE OF EXAM: 10/08/2023 2:20 PM CLINICAL INDICATION:Female, 87 years old with history of C79.31; PHH, F/U brain cancer comparison to prior MRI 06-26-23. COMPARISON: 06/26/2023. TECHNIQUE: Multi planar, multi sequence imaging was performed through the brain including: T1, T2, In version recovery, susceptibility weighted imaging and gradient echo imaging and Diffusion weighted im aging. The patient was then given intravenous contrast and multi planar, T1 fat-saturation images wer e obtained. IV Contrast: 7 cc Gadavist FINDINGS: Left frontal lobe lesion has decreased in size now measuring up to 4 x 5 mm previously 6 x 5 mm. Lesi on has subtle peripheral enhancement which is less prominent on today's exam. No new or enlarging les ions identified. Subtle foci of enhancement within these subcortical white matter series 701 image 13 1 and a spot of prior enhancement on 12/28/2022 remains. This is a single focus measuring 1 mm. The gr ay-white junctions, ventricular system, basal cisterns appear unremarkable. Diffusion-weighted imagi ng shows no evidence of restricted diffusion to suggest acute/subacute infarct. Intracranial arterial flow voids are maintained. Midline structures show no abnormality. Scattered foci of high T2 signal intensity are seen within the periventricular white matter. The susceptibility weighted images do not reveal any evidence for micro-hemorrhage. The bone marrow signal is within normal limits. Paranasal sinuses and mastoid air cells: No significant paranasal sinus disease. Visualized orbits: Orbital contents are intact. IMPRESSION: 1. Continued evidence of positive response to therapy with fractionally decreased in size of left fro ntal lobe lesion. Additionally there is single focus of enhancement within the right posterior fronta l lobe which remains 1 mm in size. No new or enlarging lesions identified. 2. Nonspecific white matter changes, likely related to small vessel ischemic disease.
== END | disposition home or self-care (01) ==
LOC: RADMRIMAIN 13:09
PROVIDERS: ATTEND Radiology Radiation Oncology
DX: C79.31 Secondary malignant neoplasm of brain (principal); G93.89 Other specified disorders of brain; C77.8 Secondary and unspecified malignant neoplasm of lymph nodes of multiple regions; C34.11 Malignant neoplasm of upper lobe, right bronchus or lung
CPT/HCPCS: 70553; A9585

== ENCOUNTER → 2023-10-22 | Outpatient (CLI) | payer MEDICARE ==
--- NOTE | 2023-10-25 21:19 | CT ---
EXAMINATION TYPE: CT pelvis wo con DATE OF EXAM: 10/22/2023 COMPARISON: Head CT 08/13/2023 HISTORY: 87-year-old female M1 6.11, fall bilateral SI and buttox pain TECHNIQUE: Contiguous axial scanning of the pelvis without IV contrast. Coronal and sagittal reconstr uctions performed. 3-D reconstructions generated on a dedicated independent workstation. CT DLP: 366.7 mGycm Automated exposure control for dose reduction was used. FINDINGS: Partially visualized posterior lumbar fusion down to the L5 level. Moderate to severe degenerative di sc disease L5-S1 with facet arthropathy. Mild to moderate degenerative change of the bilateral SI joints. Partially visualized cyst of the right kidney measuring up to 3.5 cm in mild to moderate prostatic ca lcifications infrarenal abdominal aorta. There is also moderate stool burden. What appears to be part ial right hemicolectomy with ileocolonic anastomosis along the transverse colon. Distal colonic diver ticulosis. No pericolic inflammatory change. There is mild to moderate degenerative change of both hips with posterior joint space narrowing and m arginal spurring. Coils along the right angle region suggests prior hernia repair. Moderate degenerative change at the pubic symphysis. No sacrococcygeal fracture is identified. There appears to be some fluid along the right lateral margin of the greater trochanter at the right hip measuring up to 5.9 x 3.5 cm. In addition, there is moderate atrophy of the gluteus medias muscle and a bone fragment retracted upward by 3 to 4 cm. There is some lateral right hip soft tissue swelling present. Partially visualized small fatty umbilical hernia. IMPRESSION: 1. NO ACUTE PELVIC OR HIP FRACTURE IDENTIFIED ALLOWING FOR THE LIMITATIONS OF OSTEOPENIA. 2. OLD AVULSION FRACTURE OF THE RIGHT GLUTEUS MEDIUS INSERTION WITH ASSOCIATED MUSCLE ATROPHY, UNCHAN GED FROM 08/13/2023. 3. HOWEVER, THERE APPEARS TO BE FOCAL FLUID LATERAL TO THE RIGHT GREATER TROCHANTER MEASURING UP TO 5 .9 X 3.5 WITH OVERLYING SOFT TISSUE SWELLING. POSSIBLE HEMATOMA AND BRUISING, NEW FROM 08/13/2023. THI S SHOULD BE FOLLOWED CLINICALLY TO ENSURE INVOLUTION. CONSIDER FOLLOW-UP MRI IN 2-3 MONTHS TO REASSES S. 4. DISTAL COLONIC DIVERTICULOSIS. PREVIOUS RIGHT INGUINAL HERNIA REPAIR.
== END | disposition home or self-care (01) ==
LOC: RADCTMAIN 11:51
PROVIDERS: ATTEND Orthopaedic Surgery Hand Surgery
DX: M16.11 Unilateral primary osteoarthritis, right hip (principal); S70.01XA Contusion of right hip, initial encounter; I10 Essential (primary) hypertension; M79.89 Other specified soft tissue disorders; K57.30 Diverticulosis of large intestine without perforation or abscess without bleeding; Z85.9 Personal history of malignant neoplasm, unspecified; X58.XXXA Exposure to other specified factors, initial encounter
CPT/HCPCS: 72192

== ENCOUNTER → 2023-11-25 | Outpatient (CLI) | payer MEDICARE ==
--- NOTE | 2023-11-26 17:17 | PE ---
EXAMINATION TYPE: PET CT fusion skull to thigh DATE OF EXAM: 11/25/2023 CLINICAL INDICATION:Female, 88 years old with history of C34.1 Lung Ca; TECHNIQUE: Following the intravenous administration of 8.77 mCi of F-18 FDG, whole body images are performed from the skull base to the midthigh. Images are reviewed on the computer in the coronal, a xial, and sagittal planes. Reconstructed rotating images are created on independent workstation and reviewed on the computer. A non-contrast CT is performed in conjunction with the PET scan. Glucose level 111 mg/dL CT DLP: 506.63 mGycm, Automated exposure control for dose reduction was used. COMPARISON: CT 10/22/2023, PET/CT 08/13/2023. FINDINGS: Mediastinal SUV mean is 2.3. Hepatic parenchyma SUV mean is 2.9. FINDINGS: SKULL BASE AND NECK: * Left supraclavicular lymph node measuring 3 mm,, no appreciable FDG activity. CHEST, MEDIASTINUM, AND HILAR REGION: * Fractionally smaller right upper lobe pulmonary nodule measuring 8 mm, previously 11 mm, 12 mm, 9 mm with decreased FDG activity max SUV 2.5, previously 1.6, 3.0, 2.2 and 1.5. * Right axillary lymph node has decreased in size measuring 6 mm, previously 7 mm, 14 mm in short ax is max SUV max SUV 4.6, previously 0.9, 4.8, 3.2, 2.2. Right subpectoralis lymph node with no longer visualized. ABDOMEN AND PELVIS: * Masslike area of increased or tracer activity within the sigmoid colons measuring grossly similar 24 x 13 mm previously 2.4 x 1.6. Cm Max SUV 16.8, previously 7.0, 9.0, 8.7, 10.8. * Masslike uptake within the colon near the anastomotic site max measuring 25 x 26 mm , previously 2 5 x 23 mm and before that 41 x 26 mm, SUV 3.8, previously 6.1, 6.8, 7.1. FDG activity extends extends rightward along the mucosa of the colon max SUV 11.1. OSSEOUS STRUCTURES: Uptake within the left scapula/glenoid is increased SUV 4.3, previously 3.4 , [address]: Bilateral aphakia atherosclerosis of the arterial vasculature including the coronary arteri es. Right chest wall [id number] with distal tip terminating in the superior vena cava. Heart is mi ldly enlarged for size. Fat-containing umbilical hernia scattered clonic diverticulosis with redundan t sigmoid colon. Gallbladder is distended with layering gallstones. Fixation hardware of the lower guy mbar spine hardware appears intact. Hernia repair changes with anchors in the right low suprapubic re gion. IMPRESSION: 1. Increased metabolic activity within the sigmoid colon concerning for malignancy. 2. Increasing metabolic activity at the anastomotic site concerning for progression/malignancy. 3. As well as increased right axillary lymph node metabolic activity compared to prior also concerni ng for progression. Attention on follow-up imaging. 4. FDG activity within the left glenoid unclear if this on a degenerative basis no obvious CT correl ate.
== END | disposition home or self-care (01) ==
LOC: RADPETMAIN 12:17
PROVIDERS: ATTEND Internal Medicine Hematology & Oncology
DX: C34.11 Malignant neoplasm of upper lobe, right bronchus or lung (principal)
CPT/HCPCS: 78815; A9552

== ENCOUNTER → 2023-12-08 | Outpatient (CLI) | payer MEDICARE ==
--- NOTE | 2023-12-09 00:10 | MR ---
EXAMINATION TYPE: MR shoulder LT wo/w con DATE OF EXAM: 12/08/2023 COMPARISON: PET CT November 25, 2023 HISTORY: Lung and Brain cancer, Abnormal PET scan, Pain Left shoulder TECHNIQUE: Multiplanar, multisequence images of the left shoulder is performed without and with 7 mL intravenous Gadavist gadolinium contrast. FINDINGS: Suboptimal study due to patient motion. Rotator Cuff: Full thickness retracted tear of the supraspinatus tendon to the level of the distal cl avicle coronal image 16. Intact infraspinatus tendon. Subscapularis tendon felt intact. Rotator cuff muscle bulk preserved. Acromioclavicular Joint: No significant spurring or narrowing. Glenohumeral Joint: Massive joint effusion. Significant narrowing. Prominent bony projection from the medial aspect of the humeral head coronal image 19. Labrum: Superior labrum is blunted and presumed torn. Biceps Tendon: The long head of biceps is in normal location within bicipital groove. Intracapsular p ortion not well seen. Bone marrow signal: Heterogeneous diminished T1 and increased T2 signal involving the superior medial humeral head strongly favoring products of degenerative change. No definitive suspicious focal enhan cing osseous lesion. Other: No additional significant abnormality is appreciated. IMPRESSION: 1. Advanced glenohumeral joint arthropathy as detailed above with massive effusion likely accounting for PET abnormality at this level. No convincing evidence for focal metastatic lesion.
== END | disposition home or self-care (01) ==
LOC: RADMRIMAIN 17:49
PROVIDERS: ATTEND Internal Medicine Hematology & Oncology
DX: M19.012 Primary osteoarthritis, left shoulder (principal)
CPT/HCPCS: 73223; A9585

== ENCOUNTER 2023-12-10 07:14 | Day surgery (SDC) | payer MEDICARE ==
[2023-12-10] MEDS: LACTATED RINGERS 1,000 ML IV ONE (07:57)
[2023-12-10] MEDS ORDERED: PROPOFOL 10 MG/ML 20 ML VIAL IV ONE (08:00)
[2023-12-10 08:10] VITALS: TEMP 97.6
[2023-12-10] MEDS ORDERED: LIDOCAINE 1% (10MG/ML) FOR IV START INTRADERMA PRN (08:57)
[2023-12-10] MEDS ORDERED: LACTATED RINGERS 1,000 ML IV SCH (08:57)
--- NOTE | 2023-12-10 09:48 | P.PCN ---
Date of Procedure: 12/10/23 Procedure(s) Performed: BRIEF HISTORY: Patient is a 88-year-old pleasant white female scheduled for an elective colonoscopy as a part of surveillance of prior history of colon cancer diagnosed in 2001. She status post right hemicolectomy many years ago. She was recently diagnosed with lung cancer and had a PET scan done that showed increased uptake at the anastomosis. Colonoscopy was 7 years ago. PROCEDURE PERFORMED: Colonoscopy with snare polypectomy and tattooing with Katty ink. PREOPERATIVE DIAGNOSIS: History of colon cancer in 2001 status post right hemicolectomy. Abnormal PET scan showing abnormal uptake at the anastomosis . IV sedation per Anesthesia. PROCEDURE: After informed consent was obtained, the patient, was brought into the endoscopy unit. IV sedation was administered by Anesthesia under continuous monitoring. Digital rectal examination was normal. Initially the Olympus CF-160 flexible video colonoscope was then inserted in the rectum, gradually advanced into the right colon with severe difficulty. Careful examination was performed as the scope was gradually being withdrawn. At the anastomosis in the right colon there was a 3-4 cm polypoid-appearing lesion identified and a performed snare polypectomy and almost covered polypectomy was accomplished. Mucosa of the, transverse colon, descending colon, appeared normal. In the proximal sigmoid colon at 35 cm from the anal verge there was a 4 cm large round polyp identified and part of the polyp was removed by snare polypectomy. Almost 50% the polyp was removed. Following this tattooing was performed with Katty ink. Extensive sigmoid diverticulosis. Rest of the sigmoid colon, and rectum appeared normal. Retroflexion was performed in the rectum and no lesions were seen. The patient tolerated the procedure well. IMPRESSION: 1. 3 cm polypoid-appearing lesion at the ileocolic anastomosis in the right colon status post snare polyp rectum and almost scope with polypectomy accomplished. 2. 4 cm broad-based round polyp in the distal sigmoid colon at 35 cm from the anal verge status post partial snare polypectomy and 50% polyp removed followed by tattooing with Katty ink. 3. Extensive sigmoid diverticula RECOMMENDATIONS: Findings of this examination were discussed with the patient as well as her family. She was advised to follow with the biopsy result. She'll be seen in office in 1 week..
[2023-12-10 10:12] VITALS: BP 146/81; PULSE 69; RESP 16
== END 2023-12-10 10:01 | disposition home or self-care (01) ==
LOC: ORWHC2ENDO 07:14
PROVIDERS: ATTEND Internal Medicine Gastroenterology
DX: K51.40 Inflammatory polyps of colon without complications (principal); D12.5 Benign neoplasm of sigmoid colon; K57.30 Diverticulosis of large intestine without perforation or abscess without bleeding; E78.5 Hyperlipidemia, unspecified; I10 Essential (primary) hypertension; I48.91 Unspecified atrial fibrillation; F41.9 Anxiety disorder, unspecified; Z79.890 Hormone replacement therapy; Z85.038 Personal history of other malignant neoplasm of large intestine; Z90.49 Acquired absence of other specified parts of digestive tract; Z79.52 Long term (current) use of systemic steroids; Z79.899 Other long term (current) drug therapy; Z85.118 Personal history of other malignant neoplasm of bronchus and lung
CPT/HCPCS: 88305; 45385; 45381; J2704

== ENCOUNTER → 2024-02-24 | Outpatient (CLI) | payer MEDICARE ==
--- NOTE | 2024-02-24 19:07 | PE ---
EXAMINATION TYPE: PET CT fusion skull to thigh DATE OF EXAM: 02/24/2024 CLINICAL INDICATION:Female, 88 years old with history of C34.11 LUNG CANCER; TECHNIQUE: Following the intravenous administration of 7.82 mCi of F-18 FDG, whole body images are performed from the skull base to the midthigh. Images are reviewed on the computer in the coronal, a xial, and sagittal planes. Reconstructed rotating images are created on independent workstation and reviewed on the computer. A non-contrast CT is performed in conjunction with the PET scan. Glucose level 118 mg/dL CT DLP: 470 mGycm, Automated exposure control for dose reduction was used. COMPARISON: CT None, PET/CT 11/25/2023. FINDINGS: Mediastinal SUV mean is 2.3. Hepatic parenchyma SUV mean is 2.9. SKULL BASE AND NECK: * Left supraclavicular lymph node measuring 5 mm Max SUV 2.0., Previously 3 mm max SUV 1.2.. CHEST, MEDIASTINUM, AND HILAR REGION: Right subpectoral lymph node max SUV 4.8. Right upper lung pulmonary nodule Max SUV 5.0, previously 2.5 measuring 11 mm, previously 8 mm. Right axillary lymph node measuring 9 mm Max SUV 7.0, previously 2.1 and measuring 5 mm. Additional bilateral axillary lymph nodes with increased uptake max SUV on the right 7.4, previously 4.6 and on the left measuring Max SUV 8.7, previously 1.8. ABDOMEN AND PELVIS: * Masslike area of increased or tracer activity within the sigmoid colons measuring grossly similar measuring 26 x 17 mm but is poorly visualized previously 24 x 13 mm Max SUV 10.1, previously 16.8, 7 .0, 9.0, 8.7, 10.8. Masslike uptake within the colon near the anastomotic is no longer definitively visualized. There is heterogenous possibly physiologic uptake in these loops of bowel. OSSEOUS STRUCTURES: Uptake within the left scapula/glenoid is increased SUV 7.1, previously 4.3, 3.4 , [address]: Bilateral aphakia atherosclerosis of the arterial vasculature including the coronary arteri es. Right chest wall [id number] with distal tip terminating in the superior vena cava. Heart is mi ldly enlarged for size. Fat-containing umbilical hernia scattered clonic diverticulosis with redundan t sigmoid colon. Gallbladder is distended with layering gallstones. Fixation hardware of the lower guy mbar spine hardware appears intact. Hernia repair changes with anchors in the right low suprapubic re gion. IMPRESSION: Progression of disease with increasing metabolic activity of scattered lymph nodes and right upper guy ng pulmonary nodule. Right upper lung pulmonary nodule and right subpectoral and right axillary lymph nodes have increased in size is well.
== END | disposition home or self-care (01) ==
LOC: RADPETMAIN 11:20
PROVIDERS: ATTEND Internal Medicine Hematology & Oncology
DX: C34.11 Malignant neoplasm of upper lobe, right bronchus or lung (principal); R91.1 Solitary pulmonary nodule
CPT/HCPCS: 78815; A9552

== ENCOUNTER → 2024-04-12 | Outpatient (CLI) | payer MEDICARE ==
--- NOTE | 2024-04-12 17:28 | CA ---
Transthoracic Echo Report Name: Mery Mendieta Age: 88 Gender: F : 1935 Exam Date: 04/12/2024 12:57 Exam Location: [facility] Ht (in): 60 Wt (lb): 140 Ordering Physician: Ryan Carlton MD Attending/Referring Phys: Ryan Carlton MD Export Administrator Makenzie Yadav RDCS Procedure CPT: Indications: Z01.818 PRE OP/CHEMO Cardiac Hx: Technical Quality: Good Contrast 1: Total Dose (mL): Contrast 2: Total Dose (mL): MEASUREMENTS (Male / Female) Normal Values 2D ECHO LV Diastolic Diameter PLAX 4.8 cm 4.2 - 5.9 / 3.9 - 5.3 cm LV Systolic Diameter PLAX 2.9 cm IVS Diastolic Thickness 1.1 cm 0.6 - 1.0 / 0.6 - 0.9 cm LVPW Diastolic Thickness 1.3 cm 0.6 - 1.0 / 0.6 - 0.9 cm LV Relative Wall Thickness 0.5 RV Internal Dim ED PLAX 3.2 cm LA Systolic Diameter LX 3.0 cm 3.0 - 4.0 / 2.7 - 3.8 cm LV Diastolic Volume MOD 4C 69.6 cm??? LV Systolic Volume MOD 4C 31.8 cm??? LV Ejection Fraction MOD 4C 54.4 % LV Cardiac Index MOD 4C 1551.8 cm???/min???m??? LV Diastolic Length 4C 7.3 cm LV Systolic Length 4C 6.0 cm LV Diastolic Volume MOD 2C 81.7 cm??? LV Systolic Volume MOD 2C 38.8 cm??? LV Ejection Fraction MOD 2C 52.6 % LV Cardiac Index MOD 2C 1760.1 cm???/min???m??? LV Diastolic Length 2C 7.2 cm LV Systolic Length 2C 5.9 cm LA Volume 55.0 cm??? 18 - 58 / 22 - 52 cm??? LA Volume Index 33.1 cm???/m??? 16 - 28 cm???/m??? M-MODE Aortic Root Diameter MM 3.0 cm AV Cusp Separation MM 2.1 cm DOPPLER AV Peak Velocity 169.0 cm/s AV Peak Gradient 11.4 mmHg MV Area PHT 3.2 cm??? Mitral E Point Velocity 75.0 cm/s Mitral A Point Velocity 91.7 cm/s Mitral E to A Ratio 0.8 MV Deceleration Time 239.7 ms TR Peak Velocity 310.9 cm/s TR Peak Gradient 38.7 mmHg Right Ventricular Systolic Press 41.5 mmHg FINDINGS Left Ventricle Left ventricular ejection fraction is estimated at 55-60 %. Left ventricular cavity size normal. Mildly increased septal wall thickness. Mildly increased posterior wall thickness. Normal left ventricular wall motion. Good LV strain Right Ventricle Normal right ventricular size and function. Mild pulmonary hypertension. Right Atrium Normal right atrial size. No right atrial thrombus or mass seen. Left Atrium Mildly increased left atrial volume. Mitral Valve Mitral valve thickened. No mitral stenosis. No evidence for mitral valve prolapse. Mild mitral regurgitation. Aortic Valve Trileaflet aortic valve. Aortic valve sclerosis. No aortic valve stenosis or regurgitation. Tricuspid Valve Structurally normal tricuspid valve. Mild tricuspid regurgitation. Pulmonic Valve Structurally normal pulmonic valve. No pulmonic regurgitation. Pericardium No pericardial or pleural effusion. Aorta Normal size aortic root and proximal ascending aorta. CONCLUSIONS Normal LV systolic function Mild mitral regurgitation Previewed by: Dr. Paxton Modi MD (Electronically Signed) Final Date: 12 April 2024 17:27
== END | disposition home or self-care (01) ==
LOC: RADECHMAIN 11:15
PROVIDERS: ATTEND Internal Medicine Hematology & Oncology
DX: Z01.818 Encounter for other preprocedural examination (principal); I34.0 Nonrheumatic mitral (valve) insufficiency
CPT/HCPCS: 93306

== ENCOUNTER → 2024-04-12 | Outpatient (CLI) | payer MEDICARE ==
--- NOTE | 2024-04-12 17:58 | MR ---
EXAMINATION TYPE: MR brain wo/w con DATE OF EXAM: 04/12/2024 COMPARISON: 10/08/2023 HISTORY: 88-year-old female Z01.818, Lung cancer, brain cancer follow up TECHNIQUE: Multiplanar, multisequence images of the brain and brainstem were acquired before and aft er administration of 6.5 mL IV Gadavist. Diffusion weighted imaging is performed. FINDINGS: No evidence for acute mass effect, midline shift, herniation, effacement of basal cisterns, or extra- axial fluid collection. The ventricles and sulci are age-appropriate. Dominant left vertebral artery. Major intracranial flow voids are intact. T2/FLAIR weighted sequences show moderate patchy white matter hypodensities in both periventricular a nd deep white matter regions of the cerebral hemispheres. Additional patchy increased signal in the b ilateral paramedian aylin. A few foci of susceptibility artifact are noted, subcortical anterior left frontal lobe, superior rig ht prefrontal gyrus, and right cerebellar hemisphere. The lesion in the right prefrontal gyrus show s ome associated local vasogenic edema and punctate 2 mm enhancement. Midline structures demonstrate normal morphology. The craniocervical junction is normal. Post contrast images demonstrate no other evidence of pathologic enhancement. Dural venous sinuses a re patent. Moderate mucosal thickening ethmoid air cells. Globes appear intact. IMPRESSION: 1. No new disease identified. Punctate sites of previous disease (1) anterior left frontal lobe and ( 2) right prefrontal gyrus. The latter shows similar punctate 2 mm enhancement but with the interval d evelopment of some hemosiderin/old blood products. 2. Stable moderate patchy burden of T2 bright white matter change, likely relating to chronic small v essel ischemic disease. 3. Moderate chronic ethmoid sinus disease.
== END | disposition home or self-care (01) ==
LOC: RADMRIMAIN 11:13
PROVIDERS: ATTEND Radiology Radiation Oncology
DX: Z01.818 Encounter for other preprocedural examination (principal); G93.89 Other specified disorders of brain; J34.89 Other specified disorders of nose and nasal sinuses; C79.31 Secondary malignant neoplasm of brain; C77.0 Secondary and unspecified malignant neoplasm of lymph nodes of head, face and neck; C77.8 Secondary and unspecified malignant neoplasm of lymph nodes of multiple regions; C34.11 Malignant neoplasm of upper lobe, right bronchus or lung; Z92.3 Personal history of irradiation
CPT/HCPCS: 70553; A9585

== ENCOUNTER → 2024-06-19 | Outpatient (CLI) | payer MEDICARE | END | disposition home or self-care (01) | LOC: RADECHMAIN 07:23 | PROVIDERS: ATTEND Internal Medicine Hematology & Oncology | DX: Z01.818 Encounter for other preprocedural examination (principal) | CPT/HCPCS: 93306 ==

== ENCOUNTER → 2024-06-22 | Outpatient (CLI) | payer MEDICARE ==
--- NOTE | 2024-08-03 09:02 | PE ---
EXAMINATION TYPE: PET CT fusion skull to thigh DATE OF EXAM: 06/22/2024 CLINICAL INDICATION: Lung cancer TECHNIQUE: Following the intravenous administration of 11.01 mCi of F-18 FDG, whole body images are performed from the skull base to the midthigh. Images are reviewed on the computer in the coronal, axial, and sagittal planes. Reconstructed rotating images are created on independent workstation and reviewed on the computer. A non-contrast CT is performed in conjunction with the PET scan. Glucose level 88 mg/dL CT DLP: 501 mGycm, Automated exposure control for dose reduction was used. COMPARISON: CT None, PET/CT 02/24/2024, MRI: None FINDINGS: Mediastinal SUV mean is 2.44. Hepatic parenchyma SUV mean is 2.7. SKULL BASE AND NECK: * Left supraclavicular lymph node measuring 3 mm, previously 5 mm and FDG levels below background. CHEST, MEDIASTINUM, AND HILAR REGION: * Right subpectoral lymph node is no longer visualized. Previously Max SUV 4.8. * Right upper lung pulmonary nodule Max SUV 2.8, previously 5.0, 2.5 measuring 11 mm. * Right axillary lymph nodes no longer demonstrate increased FDG activity. No FDG avid axillary lymph nodes. ABDOMEN AND PELVIS: * Masslike area of increased or tracer activity within the sigmoid colons measuring grossly similar measuring 26 x 17 mm but is poorly visualized previously 24 x 13 mm Max SUV 9.4, previously 10.1, 16.8, 7.0, 9.0, 8.7, 10.8. Scattered in FDG uptake near the anastomotic site in the anterior abdomen. Findings favored to be physiologic. No soft tissue mass with increased FDG activity visualized. OSSEOUS STRUCTURES: * Uptake within the left scapula/glenoid is increased SUV 4.2, previously 7.1, 4.3, 3.4 , 3.0 * Uptake at the left facet joints at C2-C3. Max SUV 4.5. * Uptake in the right rib 4 at the costochondral junction max SUV 4.4. OTHER CT: Bilateral aphakia atherosclerosis of the arterial vasculature including the coronary arteries. Right chest wall [id number] with distal tip terminating in the superior vena cava. Heart is mildly enlarged for size. Fat- containing umbilical hernia scattered clonic diverticulosis with redundant sigmoid colon. Gallbladder is distended with layering gallstones. Fixation hardware of the lower lumbar spine hardware appears intact. Hernia repair changes with anchors in the right low suprapubic region. IMPRESSION: 1. Positive response to therapy with decrease in FDG avid lymph nodes throughout the exam. Additionally right upper lung pulmonary nodule is also decrease in FDG activity. 2. Stable FDG avid lesion in the sigmoid colon. 3. Left glenoid FDG activity also decreased. 4. Uptake at the left C2-C3 facet joints attention follow-up imaging. Possibly on a degeneration basis. 5. Uptake right anterior ribs costochondral junction of right rib 4 correlate with prior injury. MTDD
== END | disposition home or self-care (01) ==
LOC: RADPETMAIN 14:00
PROVIDERS: ATTEND Internal Medicine Hematology & Oncology
DX: C34.11 Malignant neoplasm of upper lobe, right bronchus or lung (principal); R91.1 Solitary pulmonary nodule; R93.7 Abnormal findings on diagnostic imaging of other parts of musculoskeletal system
CPT/HCPCS: 78815; A9552

== ENCOUNTER → 2024-08-24 | Outpatient (CLI) | payer MEDICARE ==
--- NOTE | 2024-08-25 09:11 | MM ---
Reason for Exam: Screening (asymptomatic). Last mammogram was performed 1 year(s) and 1 month(s) ago. Patient History: Menarche at age 14. First Full-Term at age 20. Left ovary removed at age 61. Right ovary removed at age 61. Hysterectomy at age 61. Postmenopausal. Colorectal cancer, age 66. Estrogen for 2 years from age 62 until age 64. Progesterone for 2 years from age 62 until age 64. Daughter had breast cancer, age 60. Prior Study Comparison: 06/02/2021 Bilateral MG 3D screening mammo w/cad, [facility]. 06/04/2022 Bilateral MG 3D screening mammo w/cad, [facility]. 07/22/2023 Bilateral MG 3D screening mammo w/cad, [facility]. Tissue Density: There are scattered areas of fibroglandular density. Findings: Analyzed By CAD. Right breast: There is no suspicious group of microcalcifications or new suspicious mass. Benign-appearing calcifications right breast. Left breast: There is no suspicious group of microcalcifications or new suspicious mass. Benign-appearing calcifications left breast. Overall Assessment: Benign, BI-RAD 2 Management: Screening Mammogram of both breasts in [address] [facility] will attempt to contact patient to return for supplemental views and ultrasound if indicated. Patient should continue monthly self-breast exams. A clinical breast exam by your physician is recommended on an annual basis. This exam should not preclude additional follow-up of suspicious palpable abnormalities. Note on Ilana scores and lifetime risk: 1. A Ilana score greater than 3% is considered moderate risk. If this is the case, consider specialist referral to assess eligibility for a risk reducing agent. 2. If overall lifetime risk for the development of breast cancer is 20% or higher, the patient may qualify for future screening with alternating mammogram and breast MRI. [facility], , 08/25/2024 9:02 AM. Electronically signed and approved by: Rodri Marmolejo DO
== END | disposition home or self-care (01) ==
LOC: RADMAMWWP 13:22
PROVIDERS: ATTEND Family Medicine
CPT/HCPCS: 77063; 77067

== ENCOUNTER → 2024-08-28 | Outpatient (CLI) | payer MEDICARE ==
[2024-08-28 11:32] LABS: African American GFR (CKD) >90 (>60 ml/min/1.73 sqM); Blood Urea Nitrogen 21 mg/dL (7-17); Non-African American GFR(CKD) 79 (>60 ml/min/1.73 sqM)
--- NOTE | 2024-08-28 12:28 | CT ---
EXAMINATION TYPE: CT chest w con CT DLP: 232.70 mGycm, Automated exposure control for dose reduction was used. DATE OF EXAM: 08/28/2024 12:09 PM COMPARISON: Multiple PET/CT with most recent 07/20/2024 CLINICAL INDICATION:Female, 88 years old with history of C34.11 Lung Ca; PHH, Hx lung ca, c/o SOB TECHNIQUE: Multiple axial images were obtained through the chest following the administration of 100 cc of Isovue 300. . Coronal and sagittal reformats reviewed. FINDINGS: LUNGS/ PLEURA: No pleural effusion, pneumothorax, or focal consolidation. Bilateral lower lobe subseg mental atelectasis and/or scarring. Stable anterior right upper lobe pulmonary nodule measuring up t o 1 cm (series 4, image 11). There are 2 new anterior left upper lobe pulmonary nodules measuring up to 6 mm (series 4, image 9 and 11). AIRWAY: Patent and unremarkable.. HEART: The heart is mildly increased in size.. No pericardial effusion. MEDIASTINUM: No evidence of adenopathy. VASCULATURE: No aortic aneurysm. Right chest wall IJ Mediport catheter distal tip terminating at the low SVC. Atelectatic calcification of the aorta and its branches. Dilated main pulmonary artery andrew uring up to 3.7 cm suggesting pulmonary arterial hypertension. No definitive central filling defect. MUSCULOSKELETAL: No acute osseous abnormalities. Partial visualization of left shoulder arthroplasty. No aggressive osseous lesion. Multilevel degenerative disc disease. Partial visualization of lumbar fusion hardware. SOFT TISSUES/LYMPH NODES: Stable right axillary lymph node measuring 1.0 cm. No significant FDG activ ity in prior PET/CT. LOWER NECK: No significant findings. UPPER ABDOMEN: Few hypodense lesions within the spleen measuring up to 1.4 cm redemonstrated. IMPRESSION: 1. Stable right upper lobe 1 cm pulmonary nodule with 2 new left upper lobe pulmonary nodules measuri ng up to 6 mm concerning for progression of disease. Consider short-term follow-up CT chest in 3 sarah hs. 2. Stable indeterminate splenic lesions. No significant FDG activity on prior PET/CT. [facility], , 08/28/2024 12:26 PM
--- NOTE | 2024-08-29 09:27 | CA ---
Transthoracic Echo Report Name: Mery Mendieta Age: 88 Gender: F : 1935 Exam Date: 08/28/2024 11:24 Exam Location: [place] [facility] Ht (in): 61 Wt (lb): 142 Ordering Physician: Ryan Carlton MD Attending/Referring Phys: [employer] Order Clerk Noni Gonzalez RDCS Procedure CPT: Indications: Z01.818 Chemo Cardiac Hx: Technical Quality: Fair Contrast 1: Total Dose (mL): Contrast 2: Total Dose (mL): MEASUREMENTS (Male / Female) Normal Values 2D ECHO LV Diastolic Diameter PLAX 4.0 cm 4.2 - 5.9 / 3.9 - 5.3 cm LV Systolic Diameter PLAX 2.5 cm IVS Diastolic Thickness 1.7 cm 0.6 - 1.0 / 0.6 - 0.9 cm LVPW Diastolic Thickness 1.8 cm 0.6 - 1.0 / 0.6 - 0.9 cm LV Relative Wall Thickness 0.9 RV Internal Dim ED PLAX 3.6 cm LA Volume 57.7 cm??? 18 - 58 / 22 - 52 cm??? LA Volume Index 34.3 cm???/m??? 16 - 28 cm???/m??? M-MODE Aortic Root Diameter MM 3.0 cm LA Systolic Diameter MM 4.3 cm LA Ao Ratio MM 1.4 AV Cusp Separation MM 1.8 cm DOPPLER AV Peak Velocity 166.7 cm/s AV Peak Gradient 11.1 mmHg AV Mean Velocity 107.1 cm/s AV Mean Gradient 5.3 mmHg AV Velocity Time Integral 32.2 cm LVOT Peak Velocity 111.6 cm/s LVOT Peak Gradient 5.0 mmHg LVOT Velocity Time Integral 23.7 cm MV Area PHT 4.2 cm??? Mitral E Point Velocity 88.3 cm/s Mitral A Point Velocity 102.6 cm/s Mitral E to A Ratio 0.9 MV Deceleration Time 182.0 ms MV E' Velocity 5.5 cm/s Mitral E to MV E' Ratio 16.2 TR Peak Velocity 356.9 cm/s TR Peak Gradient 51.0 mmHg Right Ventricular Systolic Press 53.8 mmHg FINDINGS Left Ventricle Severely increased left ventricular wall thickness. Left ventricular cavity size normal. Normal left ventricular systolic function with no obvious regional wall motion abnormalities. Left ventricular ejection fraction is estimated at 55-60 %. Grade 1 diastolic dysfunction. Normal LV strain. Right Ventricle Mild right ventricular dilatation. Moderate to severe pulmonary hypertension. Right ventricular systolic pressure estimated at 54 mm hg. Right Atrium Mild right atrial dilatation. Left Atrium Mildly increased left atrial volume. Mildly increased left atrial area. Mitral Valve Structurally normal mitral valve. Mitral valve thickened. Mild to moderate mitral annular calcification. Mild to moderate mitral regurgitation. Aortic Valve Trileaflet aortic valve. Aortic valve sclerosis. Tricuspid Valve Structurally normal tricuspid valve. Fdqvsyim-uw-kzdjad tricuspid regurgitation. Pulmonic Valve Structurally normal pulmonic valve. Mild pulmonic regurgitation. Pericardium No pericardial effusion. Aorta Normal size aortic root and proximal ascending aorta. CONCLUSIONS Normal LV size and systolic function. Mild to moderate concentric LVH. Mild diastolic dysfunction. Mildly enlarged right ventricle with moderate pulmonary hypertension. Left atrium is enlarged. Mitral valve thickening noted mild mitral annular calcification. Mild to moderate mitral regurgitation. Moderate tricuspid regurgitation. No pericardial effusion Previewed by: Dr. Isa Uribe MD (Electronically Signed) Final Date: 29 August 2024 09:26
== END | disposition home or self-care (01) ==
LOC: RADCTMAIN 10:47
PROVIDERS: ATTEND Internal Medicine Hematology & Oncology
CPT/HCPCS: 36415; 71260; 82565; 84520; 93306

== ENCOUNTER → 2024-09-07 | Outpatient (CLI) | payer MEDICARE ==
--- NOTE | 2024-09-07 16:27 | PE ---
EXAMINATION TYPE: PET CT fusion skull to thigh DATE OF EXAM: 09/07/2024 CLINICAL INDICATION:Female, 88 years old with history of C34.11 LUNG CANCER; TECHNIQUE: Following the intravenous administration of 12.8 mCi of F-18 FDG, whole body images are performed from the skull base to the midthigh. Images are reviewed on the computer in the coronal, a xial, and sagittal planes. Reconstructed rotating images are created on independent workstation and reviewed on the computer. A non-contrast CT is performed in conjunction with the PET scan. Glucose level 100 mg/dL CT DLP: 354.48 mGycm, Automated exposure control for dose reduction was used. COMPARISON: CT 08/28/2024, PET/CT 07/20/2024, 02/24/2024, 11/25/2023, 08/13/2023, MRI: 04/12/2024, 3 FINDINGS: Mediastinal SUV mean is 2.4. Hepatic parenchyma SUV mean is 2.9. SKULL BASE AND NECK: *No suspicious uptake above background. CHEST, MEDIASTINUM, AND HILAR REGION: * Right upper lung pulmonary nodule redemonstrated measuring up to 1.0 cm with a maximum SUV of 3.7, previously 2.8, 5.0, and 2.5. * Redemonstrated demonstration of 2 left upper lobe pulmonary nodules measuring 6 and 5 mm without c orresponding FDG activity which may be below sensitivity for PET CT. ABDOMEN AND PELVIS: Redemonstration of a masslike area of increased radiotracer activity within the sigmoid colon measuri ng measuring up to 2.2 cm. Demonstrates a maximum SUV of 15.3, previously 9.4, 10.1, 16.8, 7.0, 9.0, 8.7, and 10.8. Scattered in FDG uptake near the anastomotic site in the anterior abdomen. Findings favored to be phy siologic. No soft tissue mass with increased FDG activity visualized. There is focal radiotracer activity within the left upper quadrant anteriorly which is likely misregi stration from the transverse colon. OSSEOUS STRUCTURES: * Uptake within the left scapula/glenoid redemonstrated with a maximum SUV 6.1, previously 4.2, 7.1, 4.3, 3.4 , 3.0 . Likely relate to advanced arthropathy. * Uptake at the left facet joints at C2-C3 again with a maximum SUV of 3.9, previously 4.5. Likely r elated to facet arthropathy. * Uptake in the right rib 4 at the costochondral junction max SUV 1.9, previously 4.4. There is foca l increased sclerosis in this region. Probably related to healing fracture. OTHER CT: Bilateral aphakia. Atherosclerosis of the arterial vasculature including the coronary arter ies. Right chest wall Lyjwey-k-Zvfm with distal tip terminating in the superior vena cava. Heart is m ildly enlarged for size. Dependent bilateral lower lobe reticular scarring redemonstrated. Fat- conta ining umbilical hernia. Scattered clonic diverticulosis with redundant sigmoid colon. Gallbladder is distended with layering gallstones again. Right renal 2.9 cm cyst. Distal colonic diverticulosis. Hys terectomy changes. Postsurgical changes from right partial hemicolectomy with bowel anastomosis Fixat ion hardware of the lower lumbar spine hardware appears intact. Multilevel degenerative changes of th e visualized spine. Diffuse bone demineralization. Hernia repair changes with anchors in the right lo w suprapubic region. Postsurgical changes from left shoulder arthroplasty. IMPRESSION: 1. Stable size of right upper lobe pulmonary nodule with mildly increased FDG activity from prior PE T/CT. Additional 2 pulmonary subcentimeter nodules within the left upper lobe do not demonstrate FDG activity however they appear below the sensitivity of PET/CT. Follow-up CT chest in 3 months is recom mended. No new sites of FDG activity identified. 2. Stable size of FDG avid lesion in the sigmoid colon concerning for colonic malignancy. Demonstrat es mildly increased FDG activity from prior PET/CT. Direct visualization is recommended if not previo usly performed. [facility], , 09/07/2024 4:25 PM
== END | disposition home or self-care (01) ==
LOC: RADPETMAIN 07:02
PROVIDERS: ATTEND Internal Medicine Hematology & Oncology
CPT/HCPCS: 78815

== ENCOUNTER → 2024-09-29 | Outpatient (CLI) | payer MEDICARE ==
--- NOTE | 2024-09-29 12:41 | MR ---
EXAMINATION TYPE: MR brain wo/w con DATE OF EXAM: 09/29/2024 12:21 PM COMPARISON: None. 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 CONTRAST: Patient received 6 mL intravenous Gadobutrol gadolinium contrast. Pre and post contrast en hanced images are obtained. FINDINGS: The ventricles, basal cisterns and sulci overlying the cerebral convexities are mildly enlarged. There is evidence of mild periventricular white matter ischemic demyelination. Remote deep white matter insults are also noted. No acute edema is seen on diffusion weighted imaging. There is no evidence for midline shift or mass effect. Acute intracranial hemorrhage or extra-axial collection is not evident. No enhancing lesions are seen. The paranasal sinuses and mastoid air cells are well-aerated. IMPRESSION: Age-related atrophic and chronic small vessel ischemic change. No acute intracranial process at this time. No enhancing lesions are seen. [facility], , 09/29/2024 12:39 PM
== END | disposition home or self-care (01) ==
LOC: RADMRIMAIN 11:27
PROVIDERS: ATTEND Radiology Radiation Oncology
DX: C79.31 Secondary malignant neoplasm of brain (principal); I67.82 Cerebral ischemia; G31.1 Senile degeneration of brain, not elsewhere classified
CPT/HCPCS: 70553; A9585

== ENCOUNTER → 2024-11-13 | Outpatient (CLI) | payer MEDICARE ==
[2024-11-13 09:50] LABS: African American GFR (CKD) 80 (>60 ml/min/1.73 sqM); Blood Urea Nitrogen 28 mg/dL (7-17); Non-African American GFR(CKD) 70 (>60 ml/min/1.73 sqM)
--- NOTE | 2024-11-13 11:17 | CT ---
EXAMINATION TYPE: CT chest w con DATE OF EXAM: 11/13/2024 COMPARISON: PET/CT September 07, 2024 and older studies HISTORY: HX OF LUNG CA. PRIOR ON PACS. CT DLP: 206.40 mGycm. Automated Exposure Control for Dose Reduction was Utilized. TECHNIQUE: CT scan of the thorax is performed following with IV Contrast, patient injected with 80ml mL of Isovue 300. FINDINGS: LUNGS: Grossly stable 9 x 8 mm anterior right upper lobe pulmonary nodule axial image 11. Fairly sta ble 3 mm anterior left upper lobe pulmonary nodule axial image 11. No new or enlarging greater than 6 mm pulmonary nodules. There is no pleural effusion or pneumothorax seen. The tracheobronchial tree is patent. Mild scattered linear scarring and/or atelectasis bilaterally is redemonstrated MEDIASTINUM: There are no new greater than 1 cm hilar or mediastinal lymph nodes. No pericardial ef fusion is seen. Stable mild cardiomegaly. Coronary artery calcification is redemonstrated. OTHER: Surgical change left shoulder is partially imaged similar to prior. A few nonspecific small hy podense lesions throughout the spleen are not significantly changed from most recent prior CT. Slight scoliotic curvature with multilevel spurring the spine is redemonstrated. IMPRESSION: Overall stable findings from most recent prior CT. No significant new or enlarging pulmon marko nodules. [facility], , 11/13/2024 11:14 AM
== END | disposition home or self-care (01) ==
LOC: RADCTMAIN 09:18
PROVIDERS: ATTEND Internal Medicine Hematology & Oncology
DX: Z03.89 Encounter for observation for other suspected diseases and conditions ruled out (principal); C34.11 Malignant neoplasm of upper lobe, right bronchus or lung; Z85.118 Personal history of other malignant neoplasm of bronchus and lung
CPT/HCPCS: 82565; 84520; 71260; 36415; Q9967

== ENCOUNTER → 2025-01-02 | Outpatient (CLI) | payer MEDICARE ==
--- NOTE | 2025-01-02 12:19 | MR ---
EXAMINATION TYPE: MR brain wo/w con DATE OF EXAM: 01/02/2025 COMPARISON: MRI brain September 29, 2024 HISTORY: Lung ca, essential hypertension, hyperlipidemia TECHNIQUE: Multiplanar, multisequence images of the brain and brainstem is performed without and with IV contras t, utilizing 6 mL intravenous Gadavist . FINDINGS: Diffusion weighted images demonstrate no evidence of a recent infarct or other diffusion ab normality. There is is persistent mild ventricular and sulcal prominence. Persistent multifocal and confluent areas of T2 hyperintensity throughout the white matter bilaterally Focal blooming artifact suggesting old blood product superior right cerebellar hemisphere and anterior left frontal lobe supe riorly is redemonstrated. Midline structures demonstrate normal morphology. The craniocervical junction appears within normal limits. Post contrast images demonstrate no abnormal enhancement or new enhancing masses. The dural venous sinuses appear patent. Bilateral aphakia is redemonstrated. Paranasal sinuses remain clear. IMPRESSION: Persistent mild diffuse age-related cerebral atrophy and more moderate to advanced probab le chronic small vessel ischemic change. No MRI evidence for recent infarct. No new enhancing masses to suggest metastatic disease. No significant change from most recent MRI. [facility], , 01/02/2025 12:17 PM
== END | disposition home or self-care (01) ==
LOC: RADMRIMAIN 10:47
PROVIDERS: ATTEND Internal Medicine Hematology & Oncology
DX: C34.11 Malignant neoplasm of upper lobe, right bronchus or lung (principal); I10 Essential (primary) hypertension; D50.9 Iron deficiency anemia, unspecified; F32.A Depression, unspecified; Z71.3 Dietary counseling and surveillance; E78.5 Hyperlipidemia, unspecified
CPT/HCPCS: 70553; A9585

== ENCOUNTER → 2025-02-14 | Outpatient (CLI) | payer MEDICARE ==
[2025-02-14 13:22] LABS: African American GFR (CKD) 75 (>60 ml/min/1.73 sqM); Blood Urea Nitrogen 17 mg/dL (7-17); Non-African American GFR(CKD) 65 (>60 ml/min/1.73 sqM)
--- NOTE | 2025-02-14 16:30 | CT ---
CT chest with contrast HISTORY: Lung cancer. COMPARISON: 11/13/2024. TECHNIQUE: Multiple axial images are obtained through the thorax following IV contrast material Findings: There is a spiculated 10.7 mm right upper lobe anteriorly. Previously measured approximately 9.3 x 7. 6 mm. There are a few additional stable scattered sub-4 mm nodules bilaterally. There is moderate cardiomegaly. There is no mediastinal, hilar or axillary adenopathy . There is no airspace consolidation. There is no pleural effusion or pneumothorax. Limited scanning through the upper abdomen reveals 2 stable 12 mm nodules within the spleen.. There are no focal osseous lesions. IMPRESSION: 1. Mild interval enlargement in the spiculated mass in the right upper lobe described above. Findings consistent with lung neoplasm. 2. Multiple stable additional sub-4 mm nodules bilaterally. 3. Moderate cardiomegaly. 4. No focal osseous lesions. [facility], , 02/14/2025 4:28 PM
== END | disposition home or self-care (01) ==
LOC: RADCTMAIN 12:30
PROVIDERS: ATTEND Internal Medicine Hematology & Oncology
DX: Z03.89 Encounter for observation for other suspected diseases and conditions ruled out (principal); C34.11 Malignant neoplasm of upper lobe, right bronchus or lung; R91.8 Other nonspecific abnormal finding of lung field; I51.7 Cardiomegaly
CPT/HCPCS: 82565; 84520; 71260; 36415; Q9967

== ENCOUNTER → 2025-05-03 | Outpatient (CLI) | payer MEDICARE ==
--- NOTE | 2025-05-07 09:22 | PE ---
EXAMINATION TYPE: PET CT fusion skull to thigh DATE OF EXAM: 05/03/2025 COMPARISON: 02/14/2025 Prior PET/CT: 09/07/2024 CLINICAL INDICATION: Female, 89 years old with history of C34.11 MALIGNANT NEOPLASM OF UPPER LOBE, RI GHT BRO, TECHNIQUE: Following the intravenous administration of 10.0 mCi of F-18 FDG, whole body images are p erformed PET CT fusion skull to thigh. Images are reviewed on the computer in the coronal, axial, an d sagittal planes. Reconstructed rotating images are created on independent workstation and reviewed on the computer. A localization and attenuation correction CT is performed in conjunction with the PET scan. DLP: 575.5 mGycm SCAN: Subsequent Blood glucose: 107 mg/dL Average Mediastinum SUV: 1.76 Average Liver SUV: 2.15 FINDINGS: NECK: No abnormal uptake THORAX: There is no focal uptake within an nodule in the anterior lateral right upper lobe. Image 64, SUV 4.88. (Maximum SUV of 5.41) Previous reported maximum SUVs of 3.7, 2.8, 5.0, and 2.5 ABDOMEN: No abnormal uptake PELVIS: There is focal uptake within the sigmoid colon region. Image 189, SUV 7.5. Consider additiona l evaluation with colonoscopy. Neoplasm not excluded. OSSEOUS STRUCTURES: There is intense uptake around a left shoulder prosthesis and the postsurgical in nature. LOCALIZATION CT: Nodules in the anterior lateral right upper lobe correlating with the radiotracer up take. COMPARISON: SUV measurement is increasing in the nodule from recent comparison. IMPRESSION: 1. Increasing radiotracer uptake within the right upper lobe nodule. 2. No suspicious metastatic lesions identified. 3. Focal area within the mid sigmoid colon of uptake. Underlying mass is not excluded. Consider colon oscopy. [facility], , 05/07/2025 9:19 AM
== END | disposition home or self-care (01) ==
LOC: RADPETMAIN 11:36
PROVIDERS: ATTEND Internal Medicine Hematology & Oncology
DX: C34.11 Malignant neoplasm of upper lobe, right bronchus or lung (principal); C34.01 Malignant neoplasm of right main bronchus
CPT/HCPCS: 78815; A9552

== ENCOUNTER 2025-05-28 05:39 | Emergency (ER) | payer MEDICARE ==
[2025-05-28 05:49] VITALS: RESP 18
[2025-05-28] MEDS: diphenhydrAMINE 50 MG/ML 1 ML VIAL IVP STA (06:14)
[2025-05-28] MEDS: FAMOTIDINE 20 MG/2 ML VIAL IV STA (06:15)
[2025-05-28] MEDS: methylPREDNISolone SOD SUCCI 125 MG/2 ML VIAL IV STA (06:15)
--- NOTE | 2025-05-28 06:19 | ED ---
Recheck HPI - General Chief Complaint: Recheck/Abnormal Lab/Rx Stated Complaint: Swollen tongue Time Seen by Provider: 05/28/25 05:55 Source: patient, EMS, RN notes reviewed Mode of arrival: EMS Limitations: no limitations - History of Present Illness Initial Comments: This is an 89-year-old female who presents to the emergency department for face and tongue swelling. Patient states that she woke up around 3 AM to use the restroom and her face felt funny. When she looked in the mirror states that the whole right side of her tongue and neck were swollen and she was having difficulty speaking and swallowing her secretions. States that since then this has subsided substantially, but is still present. Denies any pain or itching associated with this. States that her mouth just feels very full. Denies any new medications or foods. She is on lisinopril and states that she has been on it for many years. - Related Data Home Medications Medication Instructions Recorded Confirmed Cyclobenzaprine [Flexeril] 10 mg PO HS 02/19/21 03/08/23 Meclizine HCl 25 mg PO DAILY 02/19/21 03/08/23 Pravastatin Sodium [Pravachol] 40 mg PO HS 02/19/21 03/08/23 Fluticasone/Umeclidin/Vilanter 1 inhalation INHALATION DAILY 04/30/21 03/08/23 [Trelegy Ellipta 100-62.5-25] Amiodarone [Cordarone] 200 mg PO DAILY 10/15/21 03/08/23 Celecoxib [CeleBREX] 200 mg PO DAILY 10/15/21 03/08/23 Cholecalciferol (Vitamin D3) 125 mcg PO DAILY 10/15/21 03/08/23 [Vitamin D3 (125 MCG = 5,000 IU)] Cyanocobalamin (Vitamin B-12) 1,000 mcg PO DAILY 10/15/21 03/08/23 [Vitamin B-12] DULoxetine HCL [Cymbalta] 30 mg PO BID 10/15/21 03/08/23 Levothyroxine Sodium [Synthroid] 150 mcg PO QAM 10/15/21 03/08/23 Lisinopril-Hctz 10-12.5 mg 1 tab PO DAILY 10/15/21 03/08/23 [Zestoretic 10-12.5] Potassium Chloride [Klor-Con 10 ER] 10 meq PO QAM 10/15/21 03/08/23 amLODIPine [Norvasc] 5 mg PO QAM 10/15/21 03/08/23 Previous Rx's Medication Instructions Recorded Docusate [Colace] 100 mg PO BID #60 capsule 05/21/23 polyethylene glycoL 3350 [Miralax] 17 gm PO DAILY #527 gm 05/21/23 Famotidine 40 mg PO DAILY 5 Days #5 tablet 05/28/25 diphenhydrAMINE [Benadryl] 25 mg PO QID PRN #30 capsule 05/28/25 predniSONE 50 mg PO DAILY 5 Days #5 tab 05/28/25 Allergies Allergy/AdvReac Type Severity Reaction Status Date / Time No Known Allergies Allergy Verified 05/28/25 05:49 Review of Systems ROS Statement: Those systems with pertinent positive or pertinent negative responses have been documented in the HPI. ROS Other: All systems not noted in ROS Statement are negative. Past Medical History Past Medical History: Atrial Fibrillation, Cancer, COPD, Hyperlipidemia, Hypertension, Pneumonia Additional Past Medical History / Comment(s): COVID-11/2020-"long hauler symptoms", COLON CANCER 2001. 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, anemia-getting iron infusions, UTI's History of Any Multi-Drug Resistant Organisms: None Reported Past Surgical History: Back Surgery, Bowel Resection, Cardiac Ablation, Hysterectomy, Orthopedic Surgery Additional Past Surgical History / Comment(s): Bunion surg, spinal fusion, thyroidectomy, kristina hand surgery, Past Anesthesia/Blood Transfusion Reactions: Motion Sickness Additional Past Anesthesia/Blood Transfusion Reaction / Comment(s): vertigo, Past Psychological History: Anxiety Smoking Status: Former smoker Past Alcohol Use History: Rare Past Drug Use History: None Reported - Past Family History Mother Family Medical History: Myocardial Infarction (SD) Father Family Medical History: Diabetes Mellitus Brother(s) Family Medical History: Cancer Additional Family Medical History / Comment(s): bladder cancer,lung General Exam Limitations: no limitations General appearance: alert, in no apparent distress Head exam: Present: atraumatic, normocephalic, normal inspection ENT exam: Present: other (Fullness to the right side of the neck and tongue. No tenderness. No posterior pharyngeal erythema. Uvula is midline.) Respiratory exam: Present: normal lung sounds bilaterally. Absent: respiratory distress, wheezes, rales, rhonchi, stridor Cardiovascular Exam: Present: regular rate, normal rhythm Neurological exam: Present: alert, oriented X3, CN II-XII intact Psychiatric exam: Present: normal affect, normal mood Skin exam: Present: warm, dry, intact, normal color. Absent: rash Course Vital Signs 05/28/25 05/28/25 05:40 07:39 Temperature 97.5 F L Pulse Rate 65 64 Respiratory 18 18 Rate Blood Pressure 150/67 148/70 O2 Sat by Pulse 95 95 Oximetry Medical Decision Making - Medical Decision Making This is an 89-year-old female who presents to the emergency department for facial swelling. Was pt. sent in by a medical professional or institution? @ -No Did you speak to anyone other than the patient for history? @ -No Did you review nursing and triage notes? @ -Yes, and I agree, it is accurate with regards to the patient's symptoms. Were old charts reviewed? @ -No Differential Diagnosis? @ -Angioedema, abscess, cellulitis, carotid dissection, this is not meant to be an all-inclusive list EKG interpreted by me (3pts min.)? @ -Not obtained X-rays interpreted by me (1pt min.)? @ -Not obtained CT interpreted by me (1pt min.)? @ -Not obtained U/S interpreted by me (1pt. min.)? @ -Not obtained What testing was considered but not performed? (CT, X-rays, U/S, labs)? Why? @ -None What meds were considered but not given? Why? @ -None Did you discuss the management of the patient with other professionals? @ -No Did you reconcile home meds? @ -No Was smoking cessation discussed for >3mins.? @ -No Was critical care preformed (if so, how long)? @ -No Were there social determinants of health that impacted care today? How? (Homelessness, low income, unemployed, alcoholism, drug addiction, transportation, low edu. Level, literacy, decrease access to med. care, group home, rehab)? @ -No Was there de-escalation of care discussed even if they declined? (Discuss DNR or withdrawal of care, Hospice)? @ -No What co-morbidities impacted this encounter? (DM, HTN, Smoking, COPD, CAD, Cancer, CVA, Hep., AIDS, mental health diagnosis, sleep apnea, morbid obesity)? @ -HTN Was patient admitted / discharged? @ -Discharged. Patient presented with swelling to the right side of the neck and tongue when she arrived. However, she reports that it is already substantially improved compared to earlier this morning. Symptoms suggestive of angioedema, likely related to lisinopril use. She was treated with an allergy cocktail consisting of Solu-Medrol, Benadryl, and famotidine. She was monitored in the emergency department for several hours and continued to have substantial improvement. She was tolerating food and liquid without any difficulty. Prescription for an additional 5-day course of prednisone, famotidine, and Benadryl provided. She is also advised to discontinue the lisinopril and discuss alternative options with her primary care provider. Patient discharged home in stable condition. Case discussed with ED attending Dr. Truong. Return precautions reviewed in depth, the patient is instructed to return to the emergency department with any new, worsening, or concerning symptoms. Patient verbalized understanding. Undiagnosed new problem with uncertain prognosis? @ -None Drug Therapy requiring intensive monitoring for toxicity (Heparin, Nitro, Insulin, Cardizem)? @ -None Were any procedures done? @ -None Diagnosis/symptom? @ -Angioedema, right-sided facial swelling Acute, or Chronic, or Acute on Chronic? @ -Acute Uncomplicated (without systemic symptoms) or Complicated (systemic symptoms)? @ -Uncomplicated Side effects of treatment? @ -None Exacerbation, Progression, or Severe Exacerbation] @ -Not applicable Poses a threat to life or bodily function? @ -No Disposition Clinical Impression: Angioedema, Swelling of right side of face Disposition: HOME SELF-CARE Instructions (If sedation given, give patient instructions): Angioedema (ED) Additional Instructions: Return to the emergency department with any new, worsening, or concerning symptoms. Take the prednisone and famotidine daily for 5 days. Take the Benadryl as 1 to 2 tablets up to 4 times daily for any continued symptoms. Discontinue your lisinopril and discuss alternative options with your primary care provider. Follow up with your primary care provider in 1-2 days. Prescriptions: diphenhydrAMINE [Benadryl] 25 mg PO QID PRN #30 capsule PRN Reason: Allergic Reaction Famotidine 40 mg PO DAILY 5 Days #5 tablet predniSONE 50 mg PO DAILY 5 Days #5 tab Is patient prescribed a controlled substance at d/c from ED?: No Referrals: Daphnie Burrows MD [Primary Care Provider] - 1-2 days Time of Disposition: 08:33
[2025-05-28 09:04] VITALS: BP 138/76; PULSE 73; TEMP 97.9
== END 2025-05-28 09:04 | disposition home or self-care (01) ==
LOC: EC 05:39
DX: T78.3XXA Angioneurotic edema, initial encounter (principal); I10 Essential (primary) hypertension
CPT/HCPCS: 99283; 96374; 96375; J1200; J2919; J1308